=== PATIENT | male | born 1985 | race Caucasian/White ===

== ENCOUNTER 2021-08-05 06:18 | Inpatient (IN) ==
--- NOTE | 2021-08-05 06:34 | Emergency Department Note ---
Impression & Plan Suicidal behavior with attempted self-injury, Depression ED Provider Note NAME: EVIE CORREIA AGE: 36 SEX: M : 1985 ARRIVES VIA: Walk-In INFORMANT: Patient, ED PROVIDER(S): Rashaad Henry MD Chief Complaint: Overdose, strangulation intent HPI: Patient presents after trying to take medication for pain as well as for sleepiness and attempt to strangle himself. The patient states that he took 8 or 9 Aleve as well as a blister pack of 25 mg Benadryl around 1:30 AM. The patient states that after that time the patient had tried to cut off circulation to his head by placing a towel and then a belter with a towel. The patient also did state that he had some superficial scratches to the bilateral upper extremities. Patient states that he felt a little loopy after he had taken the Benadryl but feels normal now. Patient does have a history of passive suicidal thinking but denies any prior attempts. The patient denies any access to guns or weapons. Patient states that this all began as an issue with money problems and thought that he was going to run out of money over the wintertime and that his lease was up and that killing himself with all these problems. Patient denies any HI or AVH. Patient states his sleep and appetite been okay. Patient does not take any current medications and denies alcohol tobacco or drug use. Patient denies any headache neck pain numbness tingling or focal weakness. ROS: See HPI for pertinent positives and negatives. A total of 10 systems were reviewed and otherwise negative. Past medical history: See below Surgical history: See below Social history: See below Physical Exam: GENERAL: NAD, wearing glasses, wearing a mask, non-toxic. EYE EXAM: Normal conjunctiva. PERRL, no anisocoria and EOM's grossly intact w/o pain. OROPHARYNX: Moist mucus membranes. Grossly normal dentition. NECK: Supple, no nuchal rigidity, no adenopathy, non-tender. No signs of meningismus. FROM of the neck with good chin to chest and neck extension. No stridor. Superficial scratches to the left neck but no obvious ecchymosis or hematoma. LUNGS: Clear to auscultation. Normal chest wall mechanics. HEART: NSR, no MRG. ABDOMEN: Abdomen soft, non-tender, normo-active bowel sounds, no masses, no rebound or guarding. BACK: No CVA TTP. SKIN: No rashes and no bruising. UPPER EXTREMITIES: Upper extremities are grossly normal. LOWER EXTREMITIES: Grossly normal, no edema. NEURO EXAM: A&O x3, cranial nerves II-XII grossly intact, normal speech, moves all 4 extremities on command w/o issue. No sensory deficits. Psych: Positive SI, negative HI or AVH Differential diagnoses: Mood disorder, infection, hypoglycemia, electrolyte abnormalities, cardiac sources, intracerebral event, toxicologic, trauma, neurologic, as well as other pathologies. Course: Patient was seen and evaluated the bedside. Full history physical exam was performed. EKG interpreted by me Normal sinus rhythm, rate of 100, normal intervals, normal axis. MDM: Patient was seen due to concern for overdose. Blood work is obtained along with an EKG. The patient has surpassed his observation. As the patient took these medications around 6 hours ago. Patient is awake alert and following commands. Patient is not stuporous. Screening EKG and tox labs were also ordered. Patient does not have any evidence of obvious Andre criteria requiring CT angio of the neck. Patient is a nonfocal neurologic exam. Patient was he medically cleared seen and evaluated by the rn field case manager. The p atient was subsequently admitted to the psychiatric service. Psychiatry did ask for blood pressure medications and patient was given a one-time dose of clonidine. Past Med/Surg History Medical History (Updated 08/05/21 @ 13:26 by Rashaad Henry MD) No pertinent past medical history Surgical History (Updated 08/05/21 @ 07:08 by Rashaad Henry MD) No pertinent past surgical history Social History (Updated 08/05/21 @ 07:09 by Rashaad Henry MD) Smoking Status: Never smoker Hx Alcohol Use: No Hx Substance Use: No Preferred Language: Yakut Communication Ability: Effective Lather Apprentice Required: No Beliefs That Will Affect Care: None Feels Safe at Home: Yes Assistive Devices: Glasses Allergies Allergies Allergy/AdvReac Type Severity Reaction Status Date / Time No Known Allergies Allergy Unverified 08/05/21 08:47 Home Meds Home Medications Medication Instructions Recorded Confirmed No Known Home Medications 08/05/21 08/05/21 Results & Data (ED) Vital Signs Vital Signs - 24 hr 08/05/21 06:23 08/05/21 08:48 08/05/21 09:37 Temperature 37.2 C Temperature Source Oral Pulse Rate 122 H Pulse Rate [Right Finger] 106 H 106 H Respiratory Rate 18 22 20 Respiratory Effort / Characteristics Non-Labored Spontaneous Non-Labored Spontaneous Respiratory Depth Normal Normal Respiratory Pattern Regular Regular Blood Pressure 181/117 H Blood Pressure [Right Arm] 150/117 H 136/98 Blood Pressure Mean 138 Blood Pressure Mean [Right Arm] 128 110 Pulse Oximetry 99 98 100 Oxygen Delivery Method Room Air Room Air Room Air Sepsis Recent Fever Within 48 Hours No Sepsis New/Unexplained Change in Mental Status No Sepsis Action Taken by Nursing No Action Required 08/05/21 10:34 Temperature Temperature Source Pulse Rate 101 H Pulse Rate [Right Finger] Respiratory Rate 20 Respiratory Effort / Characteristics Respiratory Depth Respiratory Pattern Blood Pressure 138/96 Blood Pressure [Right Arm] Blood Pressure Mean Blood Pressure Mean [Right Arm] Pulse Oximetry 99 Oxygen Delivery Method Room Air Sepsis Recent Fever Within 48 Hours Sepsis New/Unexplained Change in Mental Status Sepsis Action Taken by Half-Way Medications Current Medication List: was personally reviewed by me Laboratory Data Attestation: I reviewed the patient's lab results. Result diagrams: 08/05/21 06:37 08/05/21 06:37 Lab Results 08/05/21 08/05/21 08/05/21 Range/Units 06:37 06:37 06:37 WBC 5.47 (4.8-10.8) K/uL RBC 4.97 (4.7-6.1) M/uL Hgb 13.8 L (14.0-18.0) g/dL Hct 40.1 L (42-52) % MCV 80.7 (80-100) fL MCH 27.8 (25-34) pg MCHC 34.4 (32-36) g/dL RDW Std Deviation 38.6 (36.4-46.3) fL RDW Coeff of Nany 13.2 (11.5-14.5) % Plt Count 256 (130-400) K/uL MPV 9.9 (7.4-10.4) fL Immature Gran % (Auto) 0.2 % Neut % (Auto) 60.2 % Lymph % (Auto) 32.5 % Kimble % (Auto) 6.0 % Eos % (Auto) 0.9 % Baso % (Auto) 0.2 % Neut # (Auto) 3.29 (1.4-6.5) K/uL Lymph # (Auto) 1.78 (1.2-3.4) K/uL Kimble # (Auto) 0.33 (0.11-0.59) K/uL Eos # (Auto) 0.05 (0-0.5) K/uL Baso # (Auto) 0.01 (0-0.2) K/uL Immature Gran # (Auto) 0.01 (0.00-0.02) K/uL Sodium 134 L (136-145) mmol/L Potassium 3.6 (3.5-5.1) mmol/L Chloride 100 (98-107) mmol/L Carbon Dioxide 25 (21-32) mmol/L Anion Gap 9 (3-11) BUN 12 (6-23) mg/dl Creatinine 0.76 (0.6-1.4) mg/dl Est Cr Clr Drug Dosing 227.5 ml/min Est GFR ( Amer) 135.1 ml/min Est GFR (Non-Af Amer) 116.6 ml/min BUN/Creatinine Ratio 15.8 (10-20) Glucose 226 H (70-99(Fasting)) mg/dl Calcium 9.4 (8.5-10.1) mg/dl Total Bilirubin 0.7 (0.2-1.0) mg/dl AST 24 (13-39) U/L ALT 30 (7-52) U/L Alkaline Phosphatase 50 (34-104) U/L Total Protein 6.8 (6.0-8.3) gm/dl Albumin 4.3 (3.4-5.0) gm/dl Globulin 2.5 (2.5-4.0) gm/dl Albumin/Globulin Ratio 1.7 (0.9-2) TSH 2.429 (0.300-4.500) uIu/ml Urine Color Urine Appearance (Clear) Urine pH (4.5-7.5) Ur Specific [place] (1.000-1.030) Urine Protein (Negative) Urine Glucose (UA) (Negative) Urine Ketones (Negative) Urine Blood (Negative) Urine Nitrite (Negative) Urine Bilirubin (Negative) Urine Urobilinogen (Negative) Ur Leukocyte Esterase (Negative) Salicylates (3.0-30) mg/dl Urine Opiates Screen (Neg) Ur Methadone, Qual (Neg) Acetaminophen (10-30) ug/ml Urine Barbiturates (Neg) Ur Phencyclidine (PCP) (Neg) U Amphetamin/Meth Scrn (Neg) MDMA (Ecstasy) Screen (Neg) U Benzodiazepines Scrn (Neg) Ur Cocaine Metabolite (Neg) U Marijuana (THC) Screen (Neg) Ethyl Alcohol mg/dL (<10.0) mg/dl SARS-CoV-2, RNA, NAAT (NEGATIVE) 08/05/21 08/05/21 08/05/21 Range/Units 06:37 06:37 06:37 WBC (4.8-10.8) K/uL RBC (4.7-6.1) M/uL Hgb (14.0-18.0) g/dL Hct (42-52) % MCV (80-100) fL MCH (25-34) pg MCHC (32-36) g/dL RDW Std Deviation (36.4-46.3) fL RDW Coeff of Nany (11.5-14.5) % Plt Count (130-400) K/uL MPV (7.4-10.4) fL Immature Gran % (Auto) % Neut % (Auto) % Lymph % (Auto) % Kimble % (Auto) % Eos % (Auto) % Baso % (Auto) % Neut # (Auto) (1.4-6.5) K/uL Lymph # (Auto) (1.2-3.4) K/uL [place] # (Auto) (0.11-0.59) K/uL Eos # (Auto) (0-0.5) K/uL Baso # (Auto) (0-0.2) K/uL Immature Gran # (Auto) (0.00-0.02) K/uL Sodium (136-145) mmol/L Potassium (3.5-5.1) mmol/L Chloride (98-107) mmol/L Carbon Dioxide (21-32) mmol/L Anion Gap (3-11) BUN (6-23) mg/dl Creatinine (0.6-1.4) mg/dl Est Cr Clr Drug Dosing ml/min Est GFR ( Amer) ml/min Est GFR (Non-Af Amer) ml/min BUN/Creatinine Ratio (10-20) Glucose (70-99(Fasting)) mg/dl Calcium (8.5-10.1) mg/dl Total Bilirubin (0.2-1.0) mg/dl AST (13-39) U/L ALT (7-52) U/L Alkaline Phosphatase (34-104) U/L Total Protein (6.0-8.3) gm/dl Albumin (3.4-5.0) gm/dl Globulin (2.5-4.0) gm/dl Albumin/Globulin Ratio (0.9-2) TSH (0.300-4.500) uIu/ml Urine Color Urine Appearance (Clear) Urine pH (4.5-7.5) Ur Specific [place] (1.000-1.030) Urine Protein (Negative) Urine Glucose (UA) (Negative) Urine Ketones (Negative) Urine Blood (Negative) Urine Nitrite (Negative) Urine Bilirubin (Negative) Urine Urobilinogen (Negative) Ur Leukocyte Esterase (Negative) Salicylates < 3.0 L (3.0-30) mg/dl Urine Opiates Screen (Neg) Ur Methadone, Qual (Neg) Acetaminophen < 3 L (10-30) ug/ml Urine Barbiturates (Neg) Ur Phencyclidine (PCP) (Neg) U Amphetamin/Meth Scrn (Neg) MDMA (Ecstasy) Screen (Neg) U Benzodiazepines Scrn (Neg) Ur Cocaine Metabolite (Neg) U Marijuana (THC) Screen (Neg) Ethyl Alcohol mg/dL < 10.0 (<10.0) mg/dl SARS-CoV-2, RNA, NAAT NEGATIVE (NEGATIVE) 08/05/21 08/05/21 Range/Units 07:30 07:30 WBC (4.8-10.8) K/uL RBC (4.7-6.1) M/uL Hgb (14.0-18.0) g/dL Hct (42-52) % MCV (80-100) fL MCH (25-34) pg MCHC (32-36) g/dL RDW Std Deviation (36.4-46.3) fL RDW Coeff of Nany (11.5-14.5) % Plt Count (130-400) K/uL MPV (7.4-10.4) fL Immature Gran % (Auto) % Neut % (Auto) % Lymph % (Auto) % Kimble % (Auto) % Eos % (Auto) % Baso % (Auto) % Neut # (Auto) (1.4-6.5) K/uL Lymph # (Auto) (1.2-3.4) K/uL [place] # (Auto) (0.11-0.59) K/uL Eos # (Auto) (0-0.5) K/uL Baso # (Auto) (0-0.2) K/uL Immature Gran # (Auto) (0.00-0.02) K/uL Sodium (136-145) mmol/L Potassium (3.5-5.1) mmol/L Chloride (98-107) mmol/L Carbon Dioxide (21-32) mmol/L Anion Gap (3-11) BUN (6-23) mg/dl Creatinine (0.6-1.4) mg/dl Est Cr Clr Drug Dosing ml/min Est GFR ( Amer) ml/min Est GFR (Non-Af Amer) ml/min BUN/Creatinine Ratio (10-20) Glucose (70-99(Fasting)) mg/dl Calcium (8.5-10.1) mg/dl Total Bilirubin (0.2-1.0) mg/dl AST (13-39) U/L ALT (7-52) U/L Alkaline Phosphatase (34-104) U/L Total Protein (6.0-8.3) gm/dl Albumin (3.4-5.0) gm/dl Globulin (2.5-4.0) gm/dl Albumin/Globulin Ratio (0.9-2) TSH (0.300-4.500) uIu/ml Urine Color Yellow Urine Appearance Clear (Clear) Urine pH 6.0 (4.5-7.5) Ur Specific [place] 1.003 (1.000-1.030) Urine Protein Negative (Negative) Urine Glucose (UA) Negative (Negative) Urine Ketones Negative (Negative) Urine Blood Negative (Negative) Urine Nitrite Negative (Negative) Urine Bilirubin Negative (Negative) Urine Urobilinogen Negative (Negative) Ur Leukocyte Esterase Negative (Negative) Salicylates (3.0-30) mg/dl Urine Opiates Screen Neg (Neg) Ur Methadone, Qual Neg (Neg) Acetaminophen (10-30) ug/ml Urine Barbiturates Neg (Neg) Ur Phencyclidine (PCP) Neg (Neg) U Amphetamin/Meth Scrn Neg (Neg) MDMA (Ecstasy) Screen Neg (Neg) U Benzodiazepines Scrn Neg (Neg) Ur Cocaine Metabolite Neg (Neg) U Marijuana (THC) Screen Neg (Neg) Ethyl Alcohol mg/dL (<10.0) mg/dl SARS-CoV-2, RNA, NAAT (NEGATIVE) Administered Medications Discontinued Medications Clonidine HCl (Clonidine Hcl 0.1 Mg Tab) 0.1 mg PO NOW ONE Stop: 08/05/21 08:52 Last Admin: 08/05/21 08:56 Dose: 0.1 mg Documented by: [id number] Discharge Plan Visit Data Chief Complaint: Mental Health Evaluation Stated Complaint: MENTAL HEALTH EVALUATION ED Provider: Rashaad Henry Discharge Problem: Suicidal behavior with attempted self-injury, Depression Patient Disposition: Admitted As Inpatient Discharge Instructions Interventions: ED Discharge Assessment Last Done: 08/05/21 10:34
[2021-08-05 06:51] LABS: Basophils # (auto) 0.01 K/uL (0-0.2); Basophils % (auto) 0.2 %; Eosinophils # (auto) 0.05 K/uL (0-0.5); Eosinophils % (auto) 0.9 %; Hematocrit (blood only) 40.1 % (42-52); Hemoglobin 13.8 g/dL (14.0-18.0); Immature Granulocytes # (auto) 0.01 K/uL (0.00-0.02); Immature Granulocytes % (auto) 0.2 %; Lymphocytes # (auto) 1.78 K/uL (1.2-3.4); Lymphocytes % (auto) 32.5 %; Mean Corpuscular Hemoglobin 27.8 pg (25-34); Mean Corpuscular Hgb Conc 34.4 g/dL (32-36); Mean Corpuscular Volume 80.7 fL (80-100); Mean Platelet Volume 9.9 fL (7.4-10.4); Monocytes # (auto) 0.33 K/uL (0.11-0.59); Neutrophils # (auto) 3.29 K/uL (1.4-6.5); Neutrophils % (auto) 60.2 %; Platelet Count 256 K/uL (130-400); RDW Coefficient of Variation 13.2 % (11.5-14.5); RDW Standard Deviation 38.6 fL (36.4-46.3); Red Blood Count 4.97 M/uL (4.7-6.1); White Blood Count 5.47 K/uL (4.8-10.8)
[2021-08-05 07:11] LABS: Acetaminophen < 3 ug/ml (10-30); Salicylate < 3.0 mg/dl (3.0-30)
[2021-08-05 07:12] LABS: Albumin Globulin Ratio 1.7 (0.9-2); Albumin Level 4.3 gm/dl (3.4-5.0); BUN Creatinine Ratio 15.8 (10-20); Bilirubin,Total 0.7 mg/dl (0.2-1.0); Calcium 9.4 mg/dl (8.5-10.1); Creatinine Clr Calc Pharmacy 227.5 ml/min; Est GFR (African American) 135.1 ml/min; Est GFR (Non-African American) 116.6 ml/min; Globulin 2.5 gm/dl (2.5-4.0); Potassium 3.6 mmol/L (3.5-5.1); Total Protein 6.8 gm/dl (6.0-8.3)
[2021-08-05 07:42] LABS: Appearance Urine Clear (Clear); Bilirubin Urine Negative (Negative); Blood Urine Negative (Negative); Color Urine Yellow; Glucose Urine UA Negative (Negative); Ketones Urine Negative (Negative); Leukocyte Esterase Urine Negative (Negative); Nitrite Urine Negative (Negative); Protein Urine Negative (Negative); Specific Gravity Urine 1.003 (1.000-1.030); Urobilinogen Urine Negative (Negative)
[2021-08-05 08:12] LABS: Amphetamines+Metham, Urine Neg (Neg); Barbiturates, Urine Neg (Neg); Benzodiazepine, Urine Neg (Neg); Cocaine, Urine Neg (Neg); MDMA (Ecstacy), Urine Neg (Neg); Methadone, Urine Neg (Neg); Opiate, Urine Neg (Neg); Phencyclidine, Urine Neg (Neg)
[2021-08-05] MEDS ORDERED: cloNIDine HCL 0.1 MG TAB PO ONE (08:51)
[2021-08-05] MEDS ORDERED: ACETAMINOPHEN 325 MG TAB PO PRN (13:30)
[2021-08-05] MEDS ORDERED: SODIUM CHLORIDE 0.65% NA SOLN 45 ML (OCEAN) PRN (13:30)
[2021-08-05] MEDS ORDERED: MAGNESIUM HYDROXIDE SUSP 30 ML UDC PO PRN (13:30)
[2021-08-05] MEDS ORDERED: hydrOXYzine HCl 25 MG TAB PO PRN ×2 (13:30)
[2021-08-05] MEDS ORDERED: ALUMINUM/MAGNESIUM SUSP 30 ML UDC PO PRN (13:30)
[2021-08-05] MEDS ORDERED: BISMUTH SUBSALICYLATE LIQD 236 ML PO PRN (13:30)
[2021-08-05] MEDS ORDERED: PROPRANOLOL HCL 10 MG TAB PO PRN (13:37)
--- NOTE | 2021-08-06 07:57 | Electrocardiogram Report ---
Test Reason : Blood Pressure : / mmHG Vent. Rate : 100 BPM Atrial Rate : 100 BPM P-R Int : 170 ms QRS Dur : 098 ms QT Int : 360 ms P-R-T Axes : 055 015 042 degrees QTc Int : 464 ms Poor data quality, interpretation may be adversely affected Normal sinus rhythm Normal ECG No previous ECGs available Confirmed by Wiley Gonzalez ([id number]) on 08/06/2021 7:57:44 AM Referred By: REFERRED SELF Confirmed By:Wiley Gonzalez
--- NOTE | 2021-08-06 09:02 | History & Physical ---
Date of Service August 06, 2021 Impression / Recommendations Impression The patient is a 36 year old with a history of depression who was admitted for suicide attempt. Diagnostically consistent with MDD, severe vs persistent depressive disorder, OMAR and social anxiety. The patient is deemed unstable and requires psychiatric hospitalization for diagnostic clarification, safety and stabilization, medication management and development of further coping skills. He is going to talk with his parents about which medications they use for depression, we also discussed possibility of WEllbutrin. Has not seen a PCP in many years and seems to have HTN. Started lisinopril which he agrees with. Will check fasting lipid panel and glucose given diabetes runs in his family. (1) MDD (major depressive disorder), recurrent episode, severe: (2) Suicide attempt: (3) OMAR (generalized anxiety disorder): (4) Social anxiety disorder: (5) HTN (hypertension): 08/06/21: The patient was admitted to the [facility] ([facility] mental [facility] unit) on q15 min checks (behavioral with suicide precautions) for safety. The patient will participate in group, recreational, and milieu therapies and will be offered additional individual and family sessions as clinically appropriate. -Lisinopril 5 mg qd -propranolol 10mg BID for anxiety and tachycardia/HTN -trazodone 50mg hs prn for insomnia Inventory Assets Strengths: supportive family, intelligent, kind Needs: stability, medication management, additional coping skills, outpt services Suicide Risk Level Suicide Risk Level: High (q15 min suicide checks) (High-Moderate) Suicide Risk Level Comments: Passive SI and feels safe on unit but with ongoing depression and planned suicide attempt prior to admission. He is able to safety contract and will alert nursing if SI intensifies or if he feels unable to stay safe. Risk Factors Assessment Male: Yes : Yes Do You Have Access To A Gun?: No Health Problems: Yes Mental Health Diagnoses: Yes Substance Use Disorders: No Previous Attempt: No Family History of Suicide: No Previous Psychiatric Hospitalization: No Hopelessness: Yes Protective Factors Assessment Employed: No Stable Relationships: Yes Supportive Family: Yes Psychiatric History Identifying Data SUKUMAR CORREIA is a 36-year-old M who currently lives in [place] alone, has a history of depression, and was admitted on 08/05/21 10:41 on a 201 voluntary commitment for suicide attempt. Chief Complaint "I didn't see a future for myself". History of Present Illness Sukumar presents for worsening depression and suicide attempt in the context of multiple psychosocial stressors including financial strain (going through his savings) and his lease expiring and social isolation. States he didn't see a future for himself and had been thinking about suicide for many years but it intensified in winter and he started to think about what he'd need to do before dying and started to think about when to . He didn't want his family to have to do the cleanup after he so he tried to get rid of as much of his stuff as possible. He had also accumulated items from various hobbies so he got rid of these as well as his kitchen tools and furniture. Before attempting suicide he only had the appliances left and a few bathroom toiletries and a few plates and only a few sets of clothes because he had counted down how many days he planned to live. He had gotten rid of his mattress, trash and had a computer desk left and it took a few days to dismantle it and get rid of it. He packed up his electronics and had them available to be donated in his car. After getting rid of everything he realized that he could act on the suicidal thoughts and then he wrote and printed letters- he left his parents letters on the counter with keys and financial information and some he sent in the mail to the [place], fire department and the police to let them know to do a welfare check and how to get into the apartment. He attempted suicide by overdosing on ibuprofen, attempted to hang himself and tried to cut himself. After attempting suicide and it was unsuccessful he called a crisis line he found online. Then the police arrived for a welfare check and then he was brought to the ED. No active SI but general future anxiety makes him worse about the moment and leads to passive SI. He has been experiencing depression chronically since about high school with lots of anxiety and he feels he coped with anxious worries by thinking "it's ok I'm going to anyway". This thought of the eventuality of dying by suicide allowed him to rationale not progressing in college classes, not trying to find new work, depleting his long-term and savings, not going to the dentist, not going to the doctor and not paying for car registration. He notes that the symptoms have been there "for awhile" and saw little point in a future. He identifies depression symptoms including worthlessness, being a buden, having no purpose, hopeless, lack of motivation, low energy, decreased concentration, apathy, increased appetite, decreased sleep with nighttime awakenings and chronic SI. Endorses symptoms of anxiety including generalized worries, worst case scenario thinking, and social anxiety. He also endorses memory issues. Psychiatric ROS notable for no history of emmy, no hx psychosis, no hx OCD. Past Psychiatric History Current Psychiatric Diagnosis: Depression Outpatient Services: none, saw psychiatrist in his 20s for about three sessions Previous Psych Admissions: n/a Do You Have Access To A Gun?: No History of Previous Suicide Attempt: No Past Medication Trials: in college was on fluoxetine for <1 month, escitalopram (didn't help, <3 months), Effexor (didn't help, <3 months) Past Head Trauma/Neuro History History of Concussion/Seizure: No Allergies Allergy/AdvReac Type Severity Reaction Status Date / Time No Known Allergies Allergy Verified 08/06/21 09:40 Home Medications Medication Instructions Recorded Confirmed Type No Known Home Medications 08/05/21 08/05/21 History Family History Family History of: Depression (father and mother ) Alcohol History Hx of Alcohol Use Over the Past 12 Months: No AUDIT Total Score: 1 1-2 beers per month Smoking Use Have You Smoked or Used Tobacco Products in the Last 30 Days: No Smoking Status: Never smoker Substance History Hx of Prescription Med Misuse Over the Past 12 Months: No Hx of Over the Counter Med Misuse Over the Past 12 Months: No Hx of Inhalent Misuse Over the Past 12 Months: No Hx of Organic Substance Use Over the Past 12 Months: No Hx of Illegal Substances/Street Drug Use Over Past 12 Months: No Problems as a Result of Past Substance Use: None Identified Personal History Living Arrangements: Apartment (lease ends in September, parents working to see if this can be renewed ) Childhood: Grew up in [place], parents are good supports. Has a younger brother. Highest Grade Completed: Some College ([employer] ) Employment Status: Unemployed (Used to work at [employer], unemployed since summer 2019) Marital Status: Single Number Of Children: n/a Beliefs That Will Affect Care: None Current Legal Problems: No Hx Legal Problems: No Hx Traumatic Life Events: No Patient History Medical History No pertinent past medical history Surgical History No pertinent past surgical history Social History Smoking Status: Never smoker Hx Alcohol Use: No Hx Substance Use: No Preferred Language: Arabic Communication Ability: Effective Loom Blower Required: No Beliefs That Will Affect Care: None Feels Safe at Home: Yes Assistive Devices: Glasses Review of Systems Review of Systems: All systems reviewed & are unremarkable except as noted in HPI & below (dry mouth and skin) Physical Exam Psychiatric: Orientation: alert and oriented x 3 Apperance: appropriately dressed and appropriately groomed Eye Contact: good eye contact Motor Behavior: no abnormal motor movements Speech: normal rate/rhythm/volume of speech Affect: + depressed affect and + blunted affect Mood: + depressed mood and + anxious mood Thought Process: goal directed thought process Thought Content: reality based without delusions, + hopelessness and + worthlessness Suicidal Thoughts: denies suicidal plan and denies suicidal intent; + reports suicidal thoughts (intermittent passive thoughts, had attempt prior to admission) Homicidal Thoughts: denies homicidal thoughts Hallucinations: no auditory hallucinations and no visual hallucinations Cognition: recent memory grossly intact, remote memory grossly intact, attention grossly intact and language grossly intact Estimated Intelligence: consistent with education level Insight: + fair insight Judgement: + fair judgement Vital Signs (Past 24 Hours): Last Vital Signs Temp 36.9 C 08/06/21 06:46 Pulse 91 H 08/06/21 06:47 Resp 18 08/06/21 06:46 BP 146/105 H 08/06/21 06:47 Pulse Ox 99 08/05/21 10:34 Exam Statement: A physical exam was performed in the ED by Dr. Henry for the purposes of medical clearance. I accept that physical as correct and adequate for the purposes of the inpatient physical exam. Results & Data ([facility]) Current Inpatient Medications Current Inpatient Medications: Current Inpatient Medications Acetaminophen (Acetaminophen 325 Mg Tab) 650 mg PO Q4H PRN PRN Reason: Headache or Minor Fever Stop: 09/04/21 13:29 Al Hydrox/Mg Hydrox/Simethicone (Aluminum/Magnesium Susp 30 Ml Udc) 30 ml PO Q4H PRN PRN Reason: GI Upset Stop: 09/04/21 13:29 Bismuth Subsalicylate (Bismuth Subsalicylate Liqd 236 Ml) 15 ml PO PRN PRN PRN Reason: Loose Stool Stop: 09/04/21 13:29 Hydroxyzine HCl (Hydroxyzine Hcl 25 Mg Tab) 50 mg PO HSZ PRN PRN Reason: Insomnia Stop: 09/04/21 13:29 Hydroxyzine HCl (Hydroxyzine Hcl 25 Mg Tab) 25 mg PO Q4H PRN PRN Reason: Anxiety Stop: 09/04/21 13:29 Lisinopril (Lisinopril 5 Mg Tab) 5 mg PO QAM AUTUMN Stop: 09/05/21 08:59 Magnesium Hydroxide (Magnesium Hydroxide Susp 30 Ml Udc) 30 ml PO DAILY PRN PRN Reason: Constipation Stop: 09/04/21 13:29 Propranolol HCl (Propranolol Hcl 10 Mg Tab) 10 mg PO BID PRN PRN Reason: Anxiety Stop: 09/04/21 20:59 Last Admin: 08/05/21 16:02 Dose: 10 mg Documented by: Sodium Chloride (Sodium Chloride 0.65% Na Soln 45 Ml ([place])) 1 - 2 sprays NA PRN PRN PRN Reason: Nasal Dryness/Congestion Stop: 09/04/21 13:29 Trazodone HCl (Trazodone Hcl 50 Mg Tab) 50 mg PO HS PRN PRN Reason: insomnia Stop: 09/04/21 21:59
[2021-08-06] MEDS: lisinopril 5 MG TAB PO SCH (09:07)
[2021-08-06] MEDS: traZODone HCL 50 MG TAB PO PRN (21:34)
--- NOTE | 2021-08-07 08:50 | Psychiatric Progress Note ---
Date of Service August 07, 2021 Impression / Recommendations Impression The patient is a 36 year old with a history of depression who was admitted for suicide attempt. Diagnostically consistent with MDD, severe vs persistent depressive disorder, OMAR and social anxiety. The patient is deemed unstable and requires psychiatric hospitalization for diagnostic clarification, safety and stabilization, medication management and development of further coping skills. 08/07/21: Continues to present with severe depression. Discussed medication treatment options in detail. Discussed risks, benefits and alternatives including Wellbutrin and SSRIs. Patient would like to start and consented to fl uoxetine for MDD as well as having trazodone at bedtime as needed.Reviewed side effects including but not limited to: GI, WILSON, sexual side effects, and counseled on black box warning of potential for emergence of or increased SI and need to let staff know should this occur or should they feel unsafe. Also discussed importance of seeking emergency care following discharge if this side effect occurs in the future. Reviewed risk of priapism. Reviewed labwork including normal cholesterol and LDL, low HDL, elevated triglycerides and HbA1c consistent with T2DM. BP normal this morning after starting lisinopril yesterday, unclear if throat tickle may be side effect, will continue to monitor. Consider starting metformin vs dietary changes/business applications analyst involvement. Reviewed suicide letter he left for family which was consistent with symptoms he described during admission interview and with prominent themes of worthless, hopelessness and low self-esteem. Also wonder about potential JOSE G contributing to low motivation, energy and sleep issues. (1) MDD (major depressive disorder), recurrent episode, severe: (2) Suicide attempt: (3) OMAR (generalized anxiety disorder): (4) Social anxiety disorder: (5) HTN (hypertension): (6) Type II diabetes mellitus: 08/07/21: Continue current medications and tx plan. 08/06/21: The patient was admitted to the [facility] ([facility] inpatient mental health unit) on q15 min checks (behavioral with suicide precautions) for safety. The patient will participate in group, recreational, and milieu therapies and will be offered additional individual and family sessions as clinically appropriate. -Lisinopril 5 mg qd -propranolol 10mg BID for anxiety and tachycardia/HTN -trazodone 50mg hs prn for insomnia Inventory Assets Strengths: supportive family, intelligent, kind Needs: stability, medication management, additional coping skills, outpt services Suicide Risk Level Suicide Risk Level: High (q15 min suicide checks) (High-Moderate) Suicide Risk Level Comments: Intermittent active SI and attempt prior to admission with severe depression but he denies any plan nor intent, feels well supported by staff, feels safe on the unit, actively engaged and participating and forthcoming with good insight, agrees to alert nursing if SI changes, intensifies or if he has thoughts of plan or intent or if he feels unable to stay safe. Risk Factors Assessment Male: Yes : Yes Do You Have Access To A Gun?: No Health Problems: Yes Mental Health Diagnoses: Yes Substance Use Disorders: No Previous Attempt: No Family History of Suicide: No Previous Psychiatric Hospitalization: No Hopelessness: Yes Protective Factors Assessment Employed: No Stable Relationships: Yes Supportive Family: Yes Interval History Identifying Information EVIE CORREIA is a 36-year-old M who currently lives in [place] alone, has a history of depression, and was admitted on 08/05/21 10:41 on a 201 voluntary commitment for suicide attempt. Chief Complaint "When I'm distracted the thoughts aren't there but they are always in the background". Review of Systems Sleep Information Total Hours of Sleep: 7.25 Sleep Comments: pt on q-15 minute checks Meal Information Percent Meal Consumed - Breakfast: 100 Percent Meal Consumed - Lunch: 100 Percent Meal Consumed - Dinner: 100 Subjective Subjective Patient was seen & assessed and interval progress reviewed with treatment team nursing and social work. Took trazodone prn last night. Fasting labs this morning. Working on medical assistance application. Slept better with trazodone. He doesn't think he snores but tends to not have restful sleep. No side effects from first dose of fluoxetine. Continues to have active SI but no plan or intent and feels safe on the unit and that he could let staff know if his thoughts intensified. He feels being here is helpful because he's doing productive things like attending groups and working on his workup and when he's distracted the SI thoughts don't bother him but when he's not as engaged the thoughts are in the background. Discussed what it's like before falling asleep or other times when he is alone in his room and he feels he is safe and doesn't need more support because he's falling asleep quickly and knows the nurses are right nearby if he needs to talk. Reviewed his labwork. He denies any medication side effects except a "tickle in his throat". Physical Exam Psychiatric Orientation: alert and oriented x 3 Apperance: appropriately dressed and appropriately groomed Eye Contact: good eye contact Motor Behavior: no abnormal motor movements Speech: normal rate/rhythm/volume of speech Affect: + depressed affect Mood: + depressed mood and + anxious mood Thought Process: goal directed thought process Thought Content: reality based without delusions, + hopelessness and + worthlessness Suicidal Thoughts: denies suicidal plan and denies suicidal intent; + reports suicidal thoughts (intermittent thoughts, had attempt prior to admission) Homicidal Thoughts: denies homicidal thoughts Hallucinations: no auditory hallucinations and no visual hallucinations Cognition: recent memory grossly intact, remote memory grossly intact, attention grossly intact and language grossly intact Estimated Intelligence: consistent with education level Insight: good insight Judgement: + fair judgement Vital Signs (Past 24 Hours) Last Vital Signs Temp 36.6 C 08/07/21 06:00 Pulse 99 H 08/07/21 06:23 Resp 16 08/07/21 06:00 BP 133/94 08/07/21 06:23 Pulse Ox 99 08/05/21 10:34 Results & Data ([facility]) Laboratory Results Laboratory Results - last 24 hr 08/07/21 08/07/21 08:23 08:23 Fasting Glucose Pending Estimat Average Glucose Pending Hemoglobin A1c Pending Triglycerides Pending Cholesterol Pending LDL Cholesterol, Calc Pending VLDL Cholesterol, Calc Pending HDL Cholesterol Pending Cholesterol/HDL Ratio Pending Current Inpatient Medications Current Inpatient Medications: Current Inpatient Medications Acetaminophen (Acetaminophen 325 Mg Tab) 650 mg PO Q4H PRN PRN Reason: Headache or Minor Fever Stop: 09/04/21 13:29 Al Hydrox/Mg Hydrox/Simethicone (Aluminum/Magnesium Susp 30 Ml Udc) 30 ml PO Q4H PRN PRN Reason: GI Upset Stop: 09/04/21 13:29 Bismuth Subsalicylate (Bismuth Subsalicylate Liqd 236 Ml) 15 ml PO PRN PRN PRN Reason: Loose Stool Stop: 09/04/21 13:29 Fluoxetine HCl (Fluoxetine Hcl 20 Mg Cap) 20 mg PO QAM AUTUMN Stop: 09/06/21 08:59 Hydroxyzine HCl (Hydroxyzine Hcl 25 Mg Tab) 50 mg PO HSZ PRN PRN Reason: Insomnia Stop: 09/04/21 13:29 Hydroxyzine HCl (Hydroxyzine Hcl 25 Mg Tab) 25 mg PO Q4H PRN PRN Reason: Anxiety Stop: 09/04/21 13:29 Lisinopril (Lisinopril 5 Mg Tab) 5 mg PO QAM AUTUMN Stop: 09/05/21 08:59 Last Admin: 08/06/21 09:07 Dose: 5 mg Documented by: Magnesium Hydroxide (Magnesium Hydroxide Susp 30 Ml Udc) 30 ml PO DAILY PRN PRN Reason: Constipation Stop: 09/04/21 13:29 Propranolol HCl (Propranolol Hcl 10 Mg Tab) 10 mg PO BID PRN PRN Reason: Anxiety Stop: 09/04/21 20:59 Last Admin: 08/05/21 16:02 Dose: 10 mg Documented by: Sodium Chloride (Sodium Chloride 0.65% Na Soln 45 Ml ([place])) 1 - 2 sprays NA PRN PRN PRN Reason: Nasal Dryness/Congestion Stop: 09/04/21 13:29 Trazodone HCl (Trazodone Hcl 50 Mg Tab) 50 mg PO HS PRN PRN Reason: insomnia Stop: 09/04/21 21:59 Last Admin: 08/06/21 21:34 Dose: 50 mg Documented by:
[2021-08-07] MEDS: FLUoxetine HCL 20 MG CAP PO SCH (09:00)
[2021-08-07 09:09] LABS: Chol HDL Ratio 5.2 (0-5)
[2021-08-07] MEDS: lisinopril 5 MG TAB PO SCH (10:14)
[2021-08-07 10:43] LABS: Estimated Average Glucose 209 mg/dl; Hemoglobin A1C 8.9 % (4.5-5.6)
[2021-08-07] MEDS: traZODone HCL 50 MG TAB PO PRN (22:01)
[2021-08-08] MEDS: FLUoxetine HCL 20 MG CAP PO SCH (08:01)
[2021-08-08] MEDS: lisinopril 5 MG TAB PO SCH (08:01)
--- NOTE | 2021-08-08 09:12 | Psychiatric Progress Note ---
Date of Service August 08, 2021 Impression / Recommendations Impression The patient is a 36 year old with a history of depression who was admitted for suicide attempt. Diagnostically consistent with MDD, severe vs persistent depressive disorder, OMAR and social anxiety. The patient is deemed unstable and requires psychiatric hospitalization for diagnostic clarification, safety and stabilization, medication management and development of further coping skills. 08/08/21: Continues to present with severe depression and SI. Discussed HTN and new T2DM diagnosis with hospitalist provider who recommended switch to losartan and then if BP remains elevated can add amlodipine 2.5 mg qhs and recommends starting metformin ER. Pharmaceutical Process Engineer consult placed and they met with Sukumar to discuss nutritional changes to manage T2DM. Will likely recheck Na+ and electrolytes in a few days given ARB initiation and addition of SSRI. (1) MDD (major depressive disorder), recurrent episode, severe: (2) Suicide attempt: (3) OMAR (generalized anxiety disorder): (4) Social anxiety disorder: (5) HTN (hypertension): Switch from lisinopril to losartan If BP remains elevated add amlodipine 2.5 mg qhs (6) Type II diabetes mellitus: Will need PCP f/up Will need referral for endocrinology to learn to use glucometer/T2DM management 08/08/21: Stop lisinopril. Start losartan 25mg qd. Start metformin ER 500mg after breakfast. Start blood glucose checks before meals and at bedtime. Dietican consult. Continue with fluoxetine and trazodone. 08/07/21: Started fluoxetine 20mg qd. 08/06/21: The patient was admitted to the [facility] ([facility] unit) on q15 min checks (behavioral with suicide precautions) for safety. The patient will participate in group, recreational, and milieu therapies and will be offered additional individual and family sessions as clinically appropriate. -Lisinopril 5 mg qd -propranolol 10mg BID for anxiety and tachycardia/HTN -trazodone 50mg hs prn for insomnia Inventory Assets Strengths: supportive family, intelligent, kind Needs: stability, medication management, additional coping skills, outpt services Suicide Risk Level Suicide Risk Level: High (q15 min suicide checks) (High-Moderate) Suicide Risk Level Comments: Intermittent active SI and attempt prior to admission with severe depression but he denies any plan nor intent, feels well supported by staff, feels safe on the unit, actively engaged and participating and forthcoming with good insight, agrees to alert nursing if SI changes, intensifies or if he has thoughts of plan or intent or if he feels unable to stay safe. Risk Factors Assessment Male: Yes : Yes Do You Have Access To A Gun?: No Health Problems: Yes Mental Health Diagnoses: Yes Substance Use Disorders: No Previous Attempt: No Family History of Suicide: No Previous Psychiatric Hospitalization: No Hopelessness: Yes Protective Factors Assessment Employed: No Stable Relationships: Yes Supportive Family: Yes Interval History Identifying Information SUKUMAR CORREIA is a 36-year-old M who currently lives in [place] alone, has a hi story of depression, and was admitted on 08/05/21 10:41 on a 201 voluntary commitment for suicide attempt. Chief Complaint "I'm still depressed but I have less SI today". Review of Systems Sleep Information Total Hours of Sleep: 8 Sleep Comments: pt on q-15 minute checks Meal Information Percent Meal Consumed - Breakfast: 100 Percent Meal Consumed - Lunch: 100 Percent Meal Consumed - Dinner: 80 Subjective Subjective Patient was seen & assessed and interval progress reviewed with treatment team nursing and social work. Took prn trazodone last night and slept 8 hours. Some mild snoring observed by nursing. Today he reports ongoing depression but slight decrease in his SI. He is finding the groups helpful. Completed his MA application. Denies any side effects from the fluoxetine. Continues to have sensation of a tickle in his throat. Met with farm equipment mechanic. Physical Exam Psychiatric Orientation: alert and oriented x 3 Apperance: appropriately dressed and appropriately groomed Eye Contact: good eye contact Motor Behavior: no abnormal motor movements Speech: normal rate/rhythm/volume of speech Affect: + depressed affect and + blunted affect Mood: + depressed mood and + anxious mood Thought Process: goal directed thought process Thought Content: reality based without delusions, + hopelessness and + worthlessness Suicidal Thoughts: denies suicidal plan and denies suicidal intent; + reports suicidal thoughts (intermittent thoughts, had attempt prior to admission) Homicidal Thoughts: denies homicidal thoughts Hallucinations: no auditory hallucinations and no visual hallucinations Cognition: recent memory grossly intact, remote memory grossly intact, attention grossly intact and language grossly intact Estimated Intelligence: consistent with education level Insight: + fair insight Judgement: + fair judgement Vital Signs (Past 24 Hours) Last Vital Signs Temp 36.6 C 08/08/21 06:00 Pulse 93 H 08/08/21 06:27 Resp 16 08/08/21 06:00 BP 154/104 H 08/08/21 06:27 Pulse Ox 99 08/05/21 10:34 Results & Data ([facility]) Laboratory Results Laboratory Results - last 24 hr 08/07/21 08:23 Estimat Average Glucose 209 Hemoglobin A1c 8.9 H Current Inpatient Medications Current Inpatient Medications: Current Inpatient Medications Acetaminophen (Acetaminophen 325 Mg Tab) 650 mg PO Q4H PRN PRN Reason: Headache or Minor Fever Stop: 09/04/21 13:29 Al Hydrox/Mg Hydrox/Simethicone (Aluminum/Magnesium Susp 30 Ml Udc) 30 ml PO Q4H PRN PRN Reason: GI Upset Stop: 09/04/21 13:29 Bismuth Subsalicylate (Bismuth Subsalicylate Liqd 236 Ml) 15 ml PO PRN PRN PRN Reason: Loose Stool Stop: 09/04/21 13:29 Fluoxetine HCl (Fluoxetine Hcl 20 Mg Cap) 20 mg PO QAM AUTUMN Stop: 09/06/21 08:59 Last Admin: 08/08/21 08:01 Dose: 20 mg Documented by: Hydroxyzine HCl (Hydroxyzine Hcl 25 Mg Tab) 50 mg PO HSZ PRN PRN Reason: Insomnia Stop: 09/04/21 13:29 Hydroxyzine HCl (Hydroxyzine Hcl 25 Mg Tab) 25 mg PO Q4H PRN PRN Reason: Anxiety Stop: 09/04/21 13:29 Lisinopril (Lisinopril 5 Mg Tab) 5 mg PO QAM AUTUMN Stop: 09/05/21 08:59 Last Admin: 08/08/21 08:01 Dose: 5 mg Documented by: Magnesium Hydroxide (Magnesium Hydroxide Susp 30 Ml Udc) 30 ml PO DAILY PRN PRN Reason: Constipation Stop: 09/04/21 13:29 Propranolol HCl (Propranolol Hcl 10 Mg Tab) 10 mg PO BID PRN PRN Reason: Anxiety Stop: 09/04/21 20:59 Last Admin: 08/05/21 16:02 Dose: 10 mg Documented by: Sodium Chloride (Sodium Chloride 0.65% Na Soln 45 Ml ([place])) 1 - 2 sprays NA PRN PRN PRN Reason: Nasal Dryness/Congestion Stop: 09/04/21 13:29 Trazodone HCl (Trazodone Hcl 50 Mg Tab) 50 mg PO HS PRN PRN Reason: insomnia Stop: 09/04/21 21:59 Last Admin: 08/07/21 22:01 Dose: 50 mg Documented by: Post Discharge Appointments Contact Information Discharge Address: Parent's Address: [address] [place] [address], [address], [place] [address]
[2021-08-09] MEDS: FLUoxetine HCL 20 MG CAP PO SCH (08:55)
[2021-08-09] MEDS: metFORMIN HCL ER 500 MG TABCR PO SCH (08:55)
[2021-08-09] MEDS: LOSARTAN POTASSIUM 25 MG TAB PO SCH (08:56)
--- NOTE | 2021-08-09 17:19 | Psychiatric Progress Note ---
Date of Service August 09, 2021 Impression / Recommendations Impression The patient is a 36 year old with a history of depression who was admitted for suicide attempt. Diagnostically consistent with MDD, severe vs persistent depressive disorder, OMAR and social anxiety. The patient is deemed unstable and requires psychiatric hospitalization for diagnostic clarification, safety and stabilization, medication management and development of further coping skills. 08/09/21: Continues to present with severe depression and SI. Continues to have HTN, will add amlodipine tomorrow if persists. Re-check electrolytes in 2 days to ensure no worsening of hyponatremia. Tolerating fluoxetine well. (1) MDD (major depressive disorder), recurrent episode, severe: (2) Suicide attempt: (3) OMAR (generalized anxiety disorder): (4) Social anxiety disorder: (5) HTN (hypertension): Switch from lisinopril to losartan If BP remains elevated add amlodipine 2.5 mg qhs (6) Type II diabetes mellitus: Will need referral for endocrinology to learn to use glucometer/T2DM management If BG values remain > 120, will increase Metformin to 500mg x 2 AM on Thursday08/12/21 . PRESCRIPTIONS NEEDED AT DISCHARGE: 1.) OneTouch Verio Test Strips to check 1x/day. 2.) OneTouch Delica Lancets 33 gauge to check 1x/day. 08/09/21: Continue current medications and tx plan. Will switch trazodone to scheduled at qhs. 08/08/21: Stop lisinopril. Start losartan 25mg qd. Start metformin ER 500mg after breakfast. Start blood glucose checks before meals and at bedtime. Dietican consult. Continue with fluoxetine and trazodone. 08/07/21: Started fluoxetine 20mg qd. 08/06/21: The patient was admitted to the [facility] ([facility] mental health unit) on q15 min checks (behavioral with suicide precautions) for safety. The patient will participate in group, recreational, and milieu therapies and will be offered additional individual and family sessions as clinically appropriate. -Lisinopril 5 mg qd -propranolol 10mg BID for anxiety and tachycardia/HTN -trazodone 50mg hs prn for insomnia Inventory Assets Strengths: supportive family, intelligent, kind Needs: stability, medication management, additional coping skills, outpt services Suicide Risk Level Suicide Risk Level: High (q15 min suicide checks) (High-Moderate) Suicide Risk Level Comments: Intermittent active SI and attempt prior to admission with severe depression but he denies any plan nor intent, feels well supported by staff, feels safe on the unit, actively engaged and participating and forthcoming with good insight, agrees to alert nursing if SI changes, intensifies or if he has thoughts of plan or intent or if he feels unable to stay safe. Risk Factors Assessment Male: Yes : Yes Do You Have Access To A Gun?: No Health Problems: Yes Mental Health Diagnoses: Yes Substance Use Disorders: No Previous Attempt: No Family History of Suicide: No Previous Psychiatric Hospitalization: No Hopelessness: Yes Protective Factors Assessment Employed: No Stable Relationships: Yes Supportive Family: Yes Interval History Identifying Information EVIE CORREIA is a 36-year-old M who currently lives in [place] alone, has a history of depression, and was admitted on 08/05/21 10:41 on a 201 voluntary commitment for suicide attempt. Chief Complaint "I'm pretty groggy today". Review of Systems Sleep Information Total Hours of Sleep: 6.5 Sleep Comments: pt given vistaril per rn. pt on q-15 minute checks Meal Information Percent Meal Consumed - Breakfast: 100 Percent Meal Consumed - Lunch: 100 Percent Meal Consumed - Dinner: 100 Subjective Subjective Patient was seen & assessed and interval progress reviewed with treatment team nursing and social work. he took prn vistaril last night and it caused him to feel very groggy today. He would rather use the trazodone and have it scheduled. No side effects from fluoxetine. No side effects from losartan or metformin. Had case management intake call. Continues to have intermittent SI but no plan and feels safe on the unit. Physical Exam Psychiatric Orientation: alert and oriented x 3 Apperance: appropriately dressed and appropriately groomed Eye Contact: good eye contact Motor Behavior: no abnormal motor movements Speech: normal rate/rhythm/volume of speech Affect: + depressed affect and + blunted affect Mood: + depressed mood and + anxious mood Thought Process: goal directed thought process Thought Content: reality based without delusions, + hopelessness and + worthlessness Suicidal Thoughts: denies suicidal plan and denies suicidal intent; + reports suicidal thoughts (intermittent thoughts, had attempt prior to admission) Homicidal Thoughts: denies homicidal thoughts Hallucinations: no auditory hallucinations and no visual hallucinations Cognition: recent memory grossly intact, remote memory grossly intact, attention grossly intact and language grossly intact Estimated Intelligence: consistent with education level Insight: + fair insight Judgement: + fair judgement Vital Signs (Past 24 Hours) Last Vital Signs Temp 36.7 C 08/09/21 06:54 Pulse 101 H 08/09/21 06:55 Resp 18 08/09/21 06:54 BP 147/111 H 08/09/21 06:55 Pulse Ox 99 08/05/21 10:34 Results & Data ([facility]) Laboratory Results Laboratory Results - last 24 hr 08/08/21 08/08/21 08/09/21 17:24 20:47 08:21 POC Glucose 133 H 138 H 156 H Current Inpatient Medications Current Inpatient Medications: Current Inpatient Medications Acetaminophen (Acetaminophen 325 Mg Tab) 650 mg PO Q4H PRN PRN Reason: Headache or Minor Fever Stop: 09/04/21 13:29 Al Hydrox/Mg Hydrox/Simethicone (Aluminum/Magnesium Susp 30 Ml Udc) 30 ml PO Q4H PRN PRN Reason: GI Upset Stop: 09/04/21 13:29 Bismuth Subsalicylate (Bismuth Subsalicylate Liqd 236 Ml) 15 ml PO PRN PRN PRN Reason: Loose Stool Stop: 09/04/21 13:29 Fluoxetine HCl (Fluoxetine Hcl 20 Mg Cap) 20 mg PO QAM [facility] Stop: 09/06/21 08:59 Last Admin: 08/09/21 08:55 Dose: 20 mg Documented by: Hydroxyzine HCl (Hydroxyzine Hcl 25 Mg Tab) 50 mg PO HSZ PRN PRN Reason: Insomnia Stop: 09/04/21 13:29 Last Admin: 08/08/21 22:01 Dose: 50 mg Documented by: Hydroxyzine HCl (Hydroxyzine Hcl 25 Mg Tab) 25 mg PO Q4H PRN PRN Reason: Anxiety Stop: 09/04/21 13:29 Losartan Potassium (Losartan Potassium 25 Mg Tab) 25 mg PO QAM [facility] Stop: 09/08/21 08:59 Last Admin: 08/09/21 08:56 Dose: 25 mg Documented by: Magnesium Hydroxide (Magnesium Hydroxide Susp 30 Ml Udc) 30 ml PO DAILY PRN PRN Reason: Constipation Stop: 09/04/21 13:29 Metformin HCl (Metformin Hcl Er 500 Mg Tabcr) 500 mg PO DAILYBB AUTUMN Stop: 09/08/21 07:59 Last Admin: 08/09/21 08:55 Dose: 500 mg Documented by: Propranolol HCl (Propranolol Hcl 10 Mg Tab) 10 mg PO BID PRN PRN Reason: Anxiety Stop: 09/04/21 20:59 Last Admin: 08/05/21 16:02 Dose: 10 mg Documented by: Sodium Chloride (Sodium Chloride 0.65% Na Soln 45 Ml ([place])) 1 - 2 sprays NA PRN PRN PRN Reason: Nasal Dryness/Congestion Stop: 09/04/21 13:29 Trazodone HCl (Trazodone Hcl 50 Mg Tab) 50 mg PO HS AUTUMN Stop: 09/08/21 21:59 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
[2021-08-09] MEDS: traZODone HCL 50 MG TAB PO SCH (22:30)
[2021-08-10] MEDS: FLUoxetine HCL 20 MG CAP PO SCH (08:13)
[2021-08-10] MEDS: metFORMIN HCL ER 500 MG TABCR PO SCH (08:13)
[2021-08-10] MEDS: LOSARTAN POTASSIUM 25 MG TAB PO SCH (08:13)
--- NOTE | 2021-08-10 09:01 | Psychiatric Progress Note ---
Date of Service August 10, 2021 Impression / Recommendations Impression The patient is a 36 year old with a history of depression who was admitted for a very serious suicide attempt with extensive planning and preparations over multiple weeks. Diagnostically consistent with MDD, severe vs persistent depressive disorder, OMAR and social anxiety. The patient is deemed unstable and requires psychiatric hospitalization for diagnostic clarification, safety and stabilization, medication management and development of further coping skills. 08/09/21: Continues to present with severe depression and SI. HTN is better controlled. Re-check electrolytes tomorrow morning to ensure no worsening of hyponatremia. Tolerating fluoxetine well. (1) MDD (major depressive disorder), recurrent episode, severe: (2) Suicide attempt: (3) OMAR (generalized anxiety disorder): (4) Social anxiety disorder: (5) HTN (hypertension): Switch from lisinopril to losartan If BP remains elevated add amlodipine 2.5 mg qhs (6) Type II diabetes mellitus: Will need referral for endocrinology to learn to use glucometer/T2DM management If BG values remain > 120, will increase Metformin to 500mg x 2 AM on Thursday08/12/21 . PRESCRIPTIONS NEEDED AT DISCHARGE: 1.) OneTouch Verio Test Strips to check 1x/day. 2.) OneTouch Delica Lancets 33 gauge to check 1x/day. 08/10/21: Continue current medications and tx plan. Electrolytes labwork tomorrow morning. 08/09/21: Continue current medications and tx plan. Will switch trazodone to scheduled at [facility]. 08/08/21: Stop lisinopril. Start losartan 25mg qd. Start metformin ER 500mg after breakfast. Start blood glucose checks before meals and at bedtime. Dietican consult. Continue with fluoxetine and trazodone. 08/07/21: Started fluoxetine 20mg qd. 08/06/21: The patient was admitted to the [facility] ([facility] inpatient mental health unit) on q15 min checks (behavioral with suicide precautions) for safety. The patient will participate in group, recreational, and milieu therapies and will be offered additional individual and family sessions as clinically appropriate. -Lisinopril 5 mg qd -propranolol 10mg BID for anxiety and tachycardia/HTN -trazodone 50mg hs prn for insomnia Inventory Assets Strengths: supportive family, intelligent, kind Needs: stability, medication management, additional coping skills, outpt services Suicide Risk Level Suicide Risk Level: High (q15 min suicide checks) (High-Moderate) Suicide Risk Level Comments: Intermittent active SI with periods of thoughts of plans he had prior to admission and attempt prior to admission with severe depression but he denies any current plans related to being in the hospital nor intent, feels well supported by staff, feels safe on the unit, actively engaged and participating and forthcoming with good insight, agrees to alert nursing if SI changes, intensifies or if he has thoughts of plan related to being in the hospital or intent or if he feels unable to stay safe. Risk Factors Assessment Male: Yes : Yes Do You Have Access To A Gun?: No Health Problems: Yes Mental Health Diagnoses: Yes Substance Use Disorders: No Previous Attempt: No Family History of Suicide: No Previous Psychiatric Hospitalization: No Hopelessness: Yes Protective Factors Assessment Employed: No Stable Relationships: Yes Supportive Family: Yes Interval History Identifying Information EVEI CORREIA is a 36-year-old M who currently lives in [place] alone, has a history of depression, and was admitted on 08/05/21 10:41 on a 201 voluntary commitment for suicide attempt. Chief Complaint "The sleep medication worked better". Review of Systems Sleep Information Total Hours of Sleep: 7 Sleep Comments: pt given vistaril per rn. pt on q-15 minute checks Meal Information Percent Meal Consumed - Breakfast: 100 Percent Meal Consumed - Lunch: 100 Percent Meal Consumed - Dinner: 100 Subjective Subjective Patient was seen & assessed and interval progress reviewed with treatment team nursing and social work. he slept well last night and didn't have any of the grogginess this morning with the switch back to trazodone at [facility]. No medication side effects. Continues to feel depressed and anxious with intrusive SI throughout the day when he isn't distracted. At times has thoughts of ways he could that he researched prior to hospitalization that are intrusive and pop in his mind in the context of things other people say (for example noted another patient spoke about SI with plan of jumping from a building and he had this thought but then though 'that would more likely hurt you not kill you') but denies any plans for here in the hospital nor any intent. Continues to feel he could and would alert staff should he have any thoughts of SI with plans in the hospital or intent or if he feels unable to remain safe. Reviewed that prior to hospitalization and his attempt he had researched a variety of different methods to determine what would be most likely to kill him. Physical Exam Psychiatric Orientation: alert and oriented x 3 Apperance: appropriately dressed and appropriately groomed Eye Contact: good eye contact Motor Behavior: no abnormal motor movements Speech: normal rate/rhythm/volume of speech Affect: + depressed affect and + blunted affect (slightly less today with a few brief smiles ) Mood: + depressed mood and + anxious mood Thought Process: goal directed thought process Thought Content: reality based without delusions, + hopelessness and + worthlessness Suicidal Thoughts: denies suicidal intent; + reports suicidal thoughts (intermittent thoughts, had attempt prior to admission) and + reports suicidal plan (at times different plans but none for currently in the hospital ) Homicidal Thoughts: denies homicidal thoughts Hallucinations: no auditory hallucinations and no visual hallucinations Cognition: recent memory grossly intact, remote memory grossly intact, attention grossly intact and language grossly intact Estimated Intelligence: consistent with education level Insight: + fair insight Judgement: + fair judgement Vital Signs (Past 24 Hours) Last Vital Signs Temp 36.5 C 08/10/21 06:35 Pulse 101 H 08/10/21 06:37 Resp 18 08/10/21 06:35 BP 138/97 08/10/21 06:37 Pulse Ox 99 08/05/21 10:34 Results & Data ([facility]) Laboratory Results Laboratory Results - last 24 hr 08/10/21 08:05 POC Glucose 137 H Current Inpatient Medications Current Inpatient Medications: Current Inpatient Medications Acetaminophen (Acetaminophen 325 Mg Tab) 650 mg PO Q4H PRN PRN Reason: Headache or Minor Fever Stop: 09/04/21 13:29 Al Hydrox/Mg Hydrox/Simethicone (Aluminum/Magnesium Susp 30 Ml Udc) 30 ml PO Q4H PRN PRN Reason: GI Upset Stop: 09/04/21 13:29 Bismuth Subsalicylate (Bismuth Subsalicylate Liqd 236 Ml) 15 ml PO PRN PRN PRN Reason: Loose Stool Stop: 09/04/21 13:29 Fluoxetine HCl (Fluoxetine Hcl 20 Mg Cap) 20 mg PO QAM AUTUMN Stop: 09/06/21 08:59 Last Admin: 08/10/21 08:13 Dose: 20 mg Documented by: Hydroxyzine HCl (Hydroxyzine Hcl 25 Mg Tab) 50 mg PO HSZ PRN PRN Reason: Insomnia Stop: 09/04/21 13:29 Last Admin: 08/08/21 22:01 Dose: 50 mg Documented by: Hydroxyzine HCl (Hydroxyzine Hcl 25 Mg Tab) 25 mg PO Q4H PRN PRN Reason: Anxiety Stop: 09/04/21 13:29 Losartan Potassium (Losartan Potassium 25 Mg Tab) 25 mg PO QAM AUTUMN Stop: 09/08/21 08:59 Last Admin: 08/10/21 08:13 Dose: 25 mg Documented by: Magnesium Hydroxide (Magnesium Hydroxide Susp 30 Ml Udc) 30 ml PO DAILY PRN PRN Reason: Constipation Stop: 09/04/21 13:29 Metformin HCl (Metformin Hcl Er 500 Mg Tabcr) 500 mg PO DAILYBB AUTUMN Stop: 09/08/21 07:59 Last Admin: 08/10/21 08:13 Dose: 500 mg Documented by: Propranolol HCl (Propranolol Hcl 10 Mg Tab) 10 mg PO BID PRN PRN Reason: Anxiety Stop: 09/04/21 20:59 Last Admin: 08/05/21 16:02 Dose: 10 mg Documented by: Sodium Chloride (Sodium Chloride 0.65% Na Soln 45 Ml ([place])) 1 - 2 sprays NA PRN PRN PRN Reason: Nasal Dryness/Congestion Stop: 09/04/21 13:29 Trazodone HCl (Trazodone Hcl 50 Mg Tab) 50 mg PO HS AUTUMN Stop: 09/08/21 21:59 Last Admin: 08/09/21 22:30 Dose: 50 mg Documented by: Mental Health & Subst Abuse Tx Clinical Writer Name of Clinical Writer: [employer] Phone Number for Clinical Writer: [phone] Post Discharge Appointments Primary Care Physician Name Of Family Doctor: [facility] - Tashi Bain DO Primary Care Date of Appointment with PCP: 10/07/21 Time of Appointment with PCP: 1:40 PM Provider Appointment Comment: [id number] [place] [address] Contact Information Discharge Address: Parent's Address: [facility], [address], [place] [address]
[2021-08-10] MEDS: traZODone HCL 50 MG TAB PO SCH (22:16)
[2021-08-11] MEDS: FLUoxetine HCL 20 MG CAP PO SCH (07:27)
[2021-08-11] MEDS: metFORMIN HCL ER 500 MG TABCR PO SCH (07:27)
[2021-08-11] MEDS: LOSARTAN POTASSIUM 25 MG TAB PO SCH (07:28)
--- NOTE | 2021-08-11 08:53 | Psychiatric Progress Note ---
Date of Service August 11, 2021 Impression / Recommendations Impression The patient is a 36 year old with a history of depression who was admitted for a very serious suicide attempt with extensive planning and preparations over multiple weeks. Diagnostically consistent with MDD, severe vs persistent depressive disorder, OMAR and social anxiety. The patient is deemed unstable and requires psychiatric hospitalization for diagnostic clarification, safety and stabilization, medication management and development of further coping skills. 08/11/21: Continues to present with severe depression and SI with ongoing periods of ambivalence about having survived the suicide attempt. Reviewed electrolytes which showed normal Na+ and K+. Will increase losartan dose given ongoing HTN. He consents to increasing fluoxetine. (1) MDD (major depressive disorder), recurrent episode, severe: (2) Suicide attempt: (3) OMAR (generalized anxiety disorder): (4) Social anxiety disorder: (5) HTN (hypertension): Switch from lisinopril to losartan If BP remains elevated add amlodipine 2.5 mg qhs (6) Type II diabetes mellitus: Will need referral for endocrinology to learn to use glucometer/T2DM management If BG values remain > 120, will increase Metformin to 500mg x 2 AM on Thursday08/12/21 . PRESCRIPTIONS NEEDED AT DISCHARGE: 1.) OneTouch Verio Test Strips to check 1x/day. 2.) OneTouch Delica Lancets 33 gauge to check 1x/day. 08/11/21: Increase fluoxetine to 40mg qd (given prior trial of 20mg many years ago with no benefit and severity of depression symptoms felt to be appropriate rather than waiting for 4-6 weeks at 20mg before assessing need for higher dose). Increase lorsartan to 50mg qd for HTN. 08/10/21: Continue current medications and tx plan. Electrolytes labwork tomorrow morning. 08/09/21: Continue current medications and tx plan. Will switch trazodone to scheduled at [facility]. 08/08/21: Stop lisinopril. Start losartan 25mg qd. Start metformin ER 500mg after breakfast. Start blood glucose checks before meals and at bedtime. Dietican consult. Continue with fluoxetine and trazodone. 08/07/21: Started fluoxetine 20mg qd. 08/06/21: The patient was admitted to the [facility] ([facility] mental health unit) on q15 min checks (behavioral with suicide precautions) for safety. The patient will participate in group, recreational, and milieu therapies and will be offered additional individual and family sessions as clinically appropriate. -Lisinopril 5 mg qd -propranolol 10mg BID for anxiety and tachycardia/HTN -trazodone 50mg hs prn for insomnia Inventory Assets Strengths: supportive family, intelligent, kind Needs: stability, medication management, additional coping skills, outpt services Suicide Risk Level Suicide Risk Level: High (q15 min suicide checks) (High-Moderate) Suicide Risk Level Comments: Intermittent active SI with periods of thoughts of plans he had prior to admission and attempt prior to admission with severe depression but he denies any current plans related to being in the hospital nor intent, feels well supported by staff, feels safe on the unit, actively engaged and participating and forthcoming with good insight, agrees to alert nursing if SI changes, intensifies or if he has thoughts of plan related to being in the hospital or intent or if he feels unable to stay safe. Risk Factors Assessment Male: Yes : Yes Do You Have Access To A Gun?: No Health Problems: Yes Mental Health Diagnoses: Yes Substance Use Disorders: No Previous Attempt: No Family History of Suicide: No Previous Psychiatric Hospitalization: No Hopelessness: Yes Protective Factors Assessment Employed: No Stable Relationships: Yes Supportive Family: Yes Interval History Identifying Information EVIE CORREIA is a 36-year-old M who currently lives in [place] alone, has a history of depression, and was admitted on 08/05/21 10:41 on a 201 voluntary commitment for suicide attempt. Chief Complaint "I'm ok, the family meeting brought up more thoughts of suicide, that if I had been successful I wouldn't being burdening my family like this". Review of Systems Sleep Information Total Hours of Sleep: 7 Sleep Comments: pt given vistaril per rn. pt on q-15 minute checks Meal Information Percent Meal Consumed - Breakfast: 90 Percent Meal Consumed - Lunch: 100 Percent Meal Consumed - Dinner: 100 Subjective Subjective Patient was seen & assessed and interval progress reviewed with treatment team nursing and social work. He slept well with trazodone. No side effects from medications. Had more SI and lower mood today in the context of family meeting as it brought up thoughts of being a burden and made him alliance party wish his suicide attempt had been successful. He noted he was able to challenge some of these "distorted thoughts" by reminding myself that my parents love me and want me to be here. No suicidal plan nor intent. He agrees to increase the fluoxetine. He's been working through the mental health workbook and focusing on cognitive distortions. Physical Exam Psychiatric Orientation: alert and oriented x 3 Apperance: appropriately dressed and appropriately groomed Eye Contact: good eye contact Motor Behavior: no abnormal motor movements Speech: normal rate/rhythm/volume of speech Affect: + depressed affect and + blunted affect Mood: + depressed mood and + anxious mood Thought Process: goal directed thought process Thought Content: reality based without delusions, + hopelessness and + worthlessness Suicidal Thoughts: denies suicidal intent; + reports suicidal thoughts (intermittent thoughts, had attempt prior to admission) and + reports suicidal plan (at times different plans outside the hospital, feels safe here) Homicidal Thoughts: denies homicidal thoughts Hallucinations: no auditory hallucinations and no visual hallucinations Cognition: recent memory grossly intact, remote memory grossly intact, attention grossly intact and language grossly intact Estimated Intelligence: consistent with education level Insight: + fair insight Judgement: + fair judgement Vital Signs (Past 24 Hours) Last Vital Signs Temp 36.4 C L 08/11/21 06:37 Pulse 105 H 08/11/21 06:37 Resp 18 08/11/21 06:37 BP 143/105 H 08/11/21 06:37 Pulse Ox 99 08/05/21 10:34 Results & Data ([facility]) Laboratory Results Laboratory Results - last 24 hr 08/10/21 08/11/21 08/11/21 22:13 07:18 07:54 Sodium Pending Potassium Pending Chloride Pending Carbon Dioxide Pending Anion Gap Pending POC Glucose 121 H 132 H Current Inpatient Medications Current Inpatient Medications: Current Inpatient Medications Acetaminophen (Acetaminophen 325 Mg Tab) 650 mg PO Q4H PRN PRN Reason: Headache or Minor Fever Stop: 09/04/21 13:29 Al Hydrox/Mg Hydrox/Simethicone (Aluminum/Magnesium Susp 30 Ml Udc) 30 ml PO Q4H PRN PRN Reason: GI Upset Stop: 09/04/21 13:29 Bismuth Subsalicylate (Bismuth Subsalicylate Liqd 236 Ml) 15 ml PO PRN PRN PRN Reason: Loose Stool Stop: 09/04/21 13:29 Fluoxetine HCl (Fluoxetine Hcl 20 Mg Cap) 20 mg PO QAM AUTUMN Stop: 09/06/21 08:59 Last Admin: 08/11/21 07:27 Dose: 20 mg Documented by: Hydroxyzine HCl (Hydroxyzine Hcl 25 Mg Tab) 50 mg PO HSZ PRN PRN Reason: Insomnia Stop: 09/04/21 13:29 Last Admin: 08/08/21 22:01 Dose: 50 mg Documented by: Hydroxyzine HCl (Hydroxyzine Hcl 25 Mg Tab) 25 mg PO Q4H PRN PRN Reason: Anxiety Stop: 09/04/21 13:29 Losartan Potassium (Losartan Potassium 25 Mg Tab) 25 mg PO QAM AUTUMN Stop: 09/08/21 08:59 Last Admin: 08/11/21 07:28 Dose: 25 mg Documented by: Magnesium Hydroxide (Magnesium Hydroxide Susp 30 Ml Udc) 30 ml PO DAILY PRN PRN Reason: Constipation Stop: 09/04/21 13:29 Metformin HCl (Metformin Hcl Er 500 Mg Tabcr) 500 mg PO DAILYBB AUTUMN Stop: 09/08/21 07:59 Last Admin: 08/11/21 07:27 Dose: 500 mg Documented by: Propranolol HCl (Propranolol Hcl 10 Mg Tab) 10 mg PO BID PRN PRN Reason: Anxiety Stop: 09/04/21 20:59 Last Admin: 08/05/21 16:02 Dose: 10 mg Documented by: Sodium Chloride (Sodium Chloride 0.65% Na Soln 45 Ml ([place])) 1 - 2 sprays NA PRN PRN PRN Reason: Nasal Dryness/Congestion Stop: 09/04/21 13:29 Trazodone HCl (Trazodone Hcl 50 Mg Tab) 50 mg PO HS AUTUMN Stop: 09/08/21 21:59 Last Admin: 08/10/21 22:16 Dose: 50 mg Documented by: Mental Health & Subst Abuse Tx Melter Super[employer] Name of Melter Supervisor [employer]: [employer] Phone Number for Melter Supervisor [employer]: [phone] Post Discharge Appointments Primary Care Physician Name Of Family Doctor: [facility] [employer] - Tashi Bain DO Primary Care Date of Appointment with PCP: 10/07/21 Time of Appointment with PCP: 1:40 PM Provider Appointment Comment: [id number], [address] [facility] [address] Contact Information Discharge Address: Parent's Address: [address] [place] [address], [address], [place] [address]
[2021-08-11 09:05] LABS: Potassium 4.2 mmol/L (3.5-5.1)
[2021-08-11] MEDS: traZODone HCL 50 MG TAB PO SCH (21:58)
[2021-08-12] MEDS: metFORMIN HCL ER 500 MG TABCR PO SCH (08:31)
[2021-08-12] MEDS: LOSARTAN POTASSIUM 50 MG TAB PO SCH (08:32)
[2021-08-12] MEDS: FLUoxetine HCL 20 MG CAP PO SCH (08:32)
[2021-08-12] MEDS ORDERED: metFORMIN HCL ER 500 MG TABCR PO SCH (09:00)
--- NOTE | 2021-08-12 09:07 | Psychiatric Progress Note ---
Date of Service August 12, 2021 Impression / Recommendations Impression The patient is a 36 year old with a history of depression who was admitted for a very serious suicide attempt with extensive planning and preparations over multiple weeks. Diagnostically consistent with MDD, severe vs persistent depressive disorder, OMAR and social anxiety. The patient is deemed unstable and requires psychiatric hospitalization for diagnostic clarification, safety and stabilization, medication management and development of further coping skills. 08/12/21: Continues to present with severe depression and SI with ongoing periods of ambivalence about having survived the suicide attempt and intermittent SI especially when not distracted. Tolerating first higher dose of fluoxetine. Reviewed BG levels over the last week and they remain >120 so will increase Metformin ER to 1000mg per day per recommendation of staff educator. Sukumar consents to this dose increase, he hasn't experienced any GI or other side effects so far. BP stable today. (1) MDD (major depressive disorder), recurrent episode, severe: (2) Suicide attempt: (3) OMAR (generalized anxiety disorder): (4) Social anxiety disorder: (5) HTN (hypertension): Switch from lisinopril to losartan If BP remains elevated add amlodipine 2.5 mg qhs (6) Type II diabetes mellitus: Will need referral for endocrinology to learn to use glucometer/T2DM management PRESCRIPTIONS NEEDED AT DISCHARGE: 1.) OneTouch Verio Test Strips to check 1x/day. 2.) OneTouch Delica Lancets 33 gauge to check 1x/day. 08/12/21: Increase Metformin ER to 1000mg qd. Continue with other medications and tx plan. Discussed CBT skills and ways to challenge distorted thinking. 08/11/21: Increase fluoxetine to 40mg qd (given prior trial of 20mg many years ago with no benefit and severity of depression symptoms felt to be appropriate rather than waiting for 4-6 weeks at 20mg before assessing need for higher dose). Increase lorsartan to 50mg qd for HTN. 08/10/21: Continue current medications and tx plan. Electrolytes labwork tomorrow morning. 08/09/21: Continue current medications and tx plan. Will switch trazodone to scheduled at qhs. 08/08/21: Stop lisinopril. Start losartan 25mg qd. Start metformin ER 500mg after breakfast. Start blood glucose checks before meals and at bedtime. Dietican consult. Continue with fluoxetine and trazodone. 08/07/21: Started fluoxetine 20mg qd. 08/06/21: The patient was admitted to the [facility] unit) on q15 min checks (behavioral with suicide precautions) for safety. The patient will participate in group, recreational, and milieu therapies and will be offered additional individual and family sessions as clinically appropriate. -Lisinopril 5 mg qd -propranolol 10mg BID for anxiety and tachycardia/HTN -trazodone 50mg hs prn for insomnia Inventory Assets Strengths: supportive family, intelligent, kind Needs: stability, medication management, additional coping skills, outpt services Suicide Risk Level Suicide Risk Level: High (q15 min suicide checks) (High-Moderate) Suicide Risk Level Comments: Intermittent active SI with periods of thoughts of plans he had prior to admission and attempt prior to admission with severe depression but he denies any current plans related to being in the hospital nor intent, feels well s upported by staff, feels safe on the unit, actively engaged and participating and forthcoming with good insight, agrees to alert nursing if SI changes, intensifies or if he has thoughts of plan related to being in the hospital or intent or if he feels unable to stay safe. Risk Factors Assessment Male: Yes : Yes Do You Have Access To A Gun?: No Health Problems: Yes Mental Health Diagnoses: Yes Substance Use Disorders: No Previous Attempt: No Family History of Suicide: No Previous Psychiatric Hospitalization: No Hopelessness: Yes Protective Factors Assessment Employed: No Stable Relationships: Yes Supportive Family: Yes Interval History Identifying Information SUKUMAR CORREIA is a 36-year-old M who currently lives in [place] alone, has a history of depression, and was admitted on 08/05/21 10:41 on a 201 voluntary commitment for suicide attempt. Chief Complaint "I'm ok". Review of Systems Sleep Information Total Hours of Sleep: 7 Sleep Comments: pt given vistaril per rn. pt on q-15 minute checks Meal Information Percent Meal Consumed - Breakfast: 100 Percent Meal Consumed - Lunch: 100 Percent Meal Consumed - Dinner: 100 Subjective Subjective Patient was seen & assessed and interval progress reviewed with treatment team nursing and social work. He's been reading the Feeling Good book and working on identifying cognitive distortions. Today he reports "ok" mood, continues to have SI especially when he's not distracted. No side effects from increased dose of fluoxetine this morning. Agrees to increase of metformin for blood sugar. Attending groups. Feeling that SI intensity is lessening a bit. Physical Exam Psychiatric Orientation: alert and oriented x 3 Apperance: appropriately dressed and appropriately groomed Eye Contact: good eye contact Motor Behavior: no abnormal motor movements Speech: normal rate/rhythm/volume of speech Affect: + depressed affect and + blunted affect Mood: + depressed mood and + anxious mood Thought Process: goal directed thought process Thought Content: reality based without delusions, + hopelessness and + worthlessness Suicidal Thoughts: denies suicidal intent; + reports suicidal thoughts (intermittent thoughts, had attempt prior to admission) and + reports suicidal plan (at times different plans outside the hospital, feels safe here) Homicidal Thoughts: denies homicidal thoughts Hallucinations: no auditory hallucinations and no visual hallucinations Cognition: recent memory grossly intact, remote memory grossly intact, attention grossly intact and language grossly intact Estimated Intelligence: consistent with education level Insight: good insight Judgement: + fair judgement Vital Signs (Past 24 Hours) Last Vital Signs Temp 36.6 C 08/12/21 06:00 Pulse 96 H 08/12/21 06:41 Resp 18 08/12/21 06:00 BP 123/87 08/12/21 06:41 Pulse Ox 96 08/12/21 06:00 Results & Data ([facility]) Laboratory Results Laboratory Results - last 24 hr 08/11/21 08/12/21 07:54 07:12 Sodium 137 Potassium 4.2 Chloride 102 Carbon Dioxide 26 Anion Gap 9 POC Glucose 128 H Current Inpatient Medications Current Inpatient Medications: Current Inpatient Medications Acetaminophen (Acetaminophen 325 Mg Tab) 650 mg PO Q4H PRN PRN Reason: Headache or Minor Fever Stop: 09/04/21 13:29 Al Hydrox/Mg Hydrox/Simethicone (Aluminum/Magnesium Susp 30 Ml Udc) 30 ml PO Q4H PRN PRN Reason: GI Upset Stop: 09/04/21 13:29 Bismuth Subsalicylate (Bismuth Subsalicylate Liqd 236 Ml) 15 ml PO PRN PRN PRN Reason: Loose Stool Stop: 09/04/21 13:29 Fluoxetine HCl (Fluoxetine Hcl 20 Mg Cap) 40 mg PO QAM AUTUMN Stop: 09/11/21 08:59 Last Admin: 08/12/21 08:32 Dose: 40 mg Documented by: Hydroxyzine HCl (Hydroxyzine Hcl 25 Mg Tab) 50 mg PO HSZ PRN PRN Reason: Insomnia Stop: 09/04/21 13:29 Last Admin: 08/08/21 22:01 Dose: 50 mg Documented by: Hydroxyzine HCl (Hydroxyzine Hcl 25 Mg Tab) 25 mg PO Q4H PRN PRN Reason: Anxiety Stop: 09/04/21 13:29 Losartan Potassium (Losartan Potassium 50 Mg Tab) 50 mg PO QAM AUTUMN Stop: 09/11/21 08:59 Last Admin: 08/12/21 08:32 Dose: 50 mg Documented by: Magnesium Hydroxide (Magnesium Hydroxide Susp 30 Ml Udc) 30 ml PO DAILY PRN PRN Reason: Constipation Stop: 09/04/21 13:29 Metformin HCl (Metformin Hcl Er 500 Mg Tabcr) 500 mg PO DAILY AUTUMN Stop: 09/08/21 07:59 Last Admin: 08/12/21 08:46 Dose: Not Given Documented by: Propranolol HCl (Propranolol Hcl 10 Mg Tab) 10 mg PO BID PRN PRN Reason: Anxiety Stop: 09/04/21 20:59 Last Admin: 08/05/21 16:02 Dose: 10 mg Documented by: Sodium Chloride (Sodium Chloride 0.65% Na Soln 45 Ml ([place])) 1 - 2 sprays NA PRN PRN PRN Reason: Nasal Dryness/Congestion Stop: 09/04/21 13:29 Trazodone HCl (Trazodone Hcl 50 Mg Tab) 50 mg PO HS AUTUMN Stop: 09/08/21 21:59 Last Admin: 08/11/21 21:58 Dose: 50 mg Documented by: Mental Health & Subst Abuse Tx Drink Mixer Name of Drink Mixer: [employer] Phone Number for Drink Mixer: [phone] Post Discharge Appointments Primary Care Physician Name Of Family Doctor: [facility] [employer] - Tashi Bain DO Primary Care Date of Appointment with PCP: 10/07/21 Time of Appointment with PCP: 1:40 PM Provider Appointment Comment: [id number], [place] [address] Contact Information Discharge Address: Parent's Address: [facility], [address], [place] [address]
[2021-08-12] MEDS: traZODone HCL 50 MG TAB PO SCH (21:21)
--- NOTE | 2021-08-13 08:57 | Psychiatric Progress Note ---
Date of Service August 13, 2021 Impression / Recommendations Impression The patient is a 36 year old with a history of depression who was admitted for a very serious suicide attempt with extensive planning and preparations over multiple weeks. Diagnostically consistent with MDD, severe vs persistent depressive disorder, OMAR and social anxiety. The patient is deemed unstable and requires psychiatric hospitalization for diagnostic clarification, safety and stabilization, medication management and development of further coping skills. 08/13/21: Continues to present with severe depression and SI. Tolerating higher dose of fluoxetine. Difficulty with sleep, he would like to try scheduled Vistaril tonight instead of trazodone. (1) MDD (major depressive disorder), recurrent episode, severe: (2) Suicide attempt: (3) OMAR (generalized anxiety disorder): (4) Social anxiety disorder: (5) HTN (hypertension): Switch from lisinopril to losartan If BP remains elevated add amlodipine 2.5 mg qhs (6) Type II diabetes mellitus: Will need referral for endocrinology to learn to use glucometer/T2DM management PRESCRIPTIONS NEEDED AT DISCHARGE: 1.) OneTouch Verio Test Strips to check 1x/day. 2.) OneTouch Delica Lancets 33 gauge to check 1x/day. 08/13/21: Stop trazodone, trial of Vistaril 50mg qhs for sleep. Continue with other medication and tx plan. Ongoing CBT work related to SI. 08/12/21: Increase Metformin ER to 1000mg qd. Continue with other medications and tx plan. Discussed CBT skills and ways to challenge distorted thinking. 08/11/21: Increase fluoxetine to 40mg qd (given prior trial of 20mg many years ago with no benefit and severity of depression symptoms felt to be appropriate rather than waiting for 4-6 weeks at 20mg before assessing need for higher dose). Increase lorsartan to 50mg qd for HTN. 08/10/21: Continue current medications and tx plan. Electrolytes labwork tomorrow morning. 08/09/21: Continue current medications and tx plan. Will switch trazodone to scheduled at qhs. 08/08/21: Stop lisinopril. Start losartan 25mg qd. Start metformin ER 500mg after breakfast. Start blood glucose checks before meals and at bedtime. Dietican consult. Continue with fluoxetine and trazodone. 08/07/21: Started fluoxetine 20mg qd. 08/06/21: The patient was admitted to the [facility] ([facility] mental health unit) on q15 min checks (behavioral with suicide precautions) for safety. The patient will participate in group, recreational, and milieu therapies and will be offered additional individual and family sessions as clinically appropriate. -Lisinopril 5 mg qd -propranolol 10mg BID for anxiety and tachycardia/HTN -trazodone 50mg hs prn for insomnia Inventory Assets Strengths: supportive family, intelligent, kind Needs: stability, medication management, additional coping skills, outpt services Suicide Risk Level Suicide Risk Level: High (q15 min suicide checks) (High-Moderate) Suicide Risk Level Comments: Intermittent active SI with periods of thoughts of plans he had prior to admission and attempt prior to admission with severe depression but he denies any current plans related to being in the hospital nor intent, feels well supported by staff, feels safe on the unit, actively engaged and participating and forthcoming with good insight, agrees to alert nursing if SI changes, intensifies or if he has thoughts of plan related to being in the hospital or intent or if he feels unable to stay safe. Risk Factors Assessment Male: Yes : Yes Do You Have Access To A Gun?: No Health Problems: Yes Mental Health Diagnoses: Yes Substance Use Disorders: No Previous Attempt: No Family History of Suicide: No Previous Psychiatric Hospitalization: No Hopelessness: Yes Protective Factors Assessment Employed: No Stable Relationships: Yes Supportive Family: Yes Interval History Identifying Information EVIE CORREIA is a 36-year-old M who currently lives in [place] alone, has a history of depression, and was admitted on 08/05/21 10:41 on a 201 voluntary commitment for suicide attempt. Chief Complaint "I feel more anxious and fidgety today". Review of Systems Sleep Information Total Hours of Sleep: 7 Sleep Comments: pt given vistaril per rn. pt on q-15 minute checks Meal Information Percent Meal Consumed - Breakfast: 100 Percent Meal Consumed - Lunch: 100 Percent Meal Consumed - Dinner: 100 Subjective Subjective Patient was seen & assessed and interval progress reviewed with treatment team nursing and social work. More difficulty with sleep last night, he's considering taking the trazodone earlier tonight. Had a spontaneous smile yesterday. Today notes some more success challenging SI by telling himself "that's a habit". Reviewed ways to challenge cognitive distortions. Feels more anxious and fidgety today but he thinks maybe due to larger groups and social anxiety component of this. No side effects from medication. Wonders about trying Vistaril tonight as difficulty sleeping last night even with trazodone. Physical Exam Psychiatric Orientation: alert and oriented x 3 Apperance: appropriately dressed and appropriately groomed Eye Contact: good eye contact Motor Behavior: no abnormal motor movements Speech: normal rate/rhythm/volume of speech Affect: + depressed affect and + blunted affect Mood: + depressed mood and + anxious mood Thought Process: goal directed thought process Thought Content: reality based without delusions, + hopelessness and + worthlessness Suicidal Thoughts: denies suicidal intent; + reports suicidal thoughts (intermittent thoughts, had attempt prior to admission) and + reports suicidal plan (at times different plans outside the hospital, feels safe here) Homicidal Thoughts: denies homicidal thoughts Hallucinations: no auditory hallucinations and no visual hallucinations Cognition: recent memory grossly intact, remote memory grossly intact, attention grossly intact and language grossly intact Estimated Intelligence: consistent with education level Insight: good insight Judgement: + fair judgement Vital Signs (Past 24 Hours) Last Vital Signs Temp 36.5 C 08/13/21 06:51 Pulse 96 H 08/13/21 06:51 Resp 18 08/13/21 06:51 BP 127/90 08/13/21 06:51 Pulse Ox 96 08/12/21 06:00 Results & Data ([facility]) Laboratory Results Laboratory Results - last 24 hr 08/13/21 08:30 POC Glucose 118 H Current Inpatient Medications Current Inpatient Medications: Current Inpatient Medications Acetaminophen (Acetaminophen 325 Mg Tab) 650 mg PO Q4H PRN PRN Reason: Headache or Minor Fever Stop: 09/04/21 13:29 Al Hydrox/Mg Hydrox/Simethicone (Aluminum/Magnesium Susp 30 Ml Udc) 30 ml PO Q4H PRN PRN Reason: GI Upset Stop: 09/04/21 13:29 Bismuth Subsalicylate (Bismuth Subsalicylate Liqd 236 Ml) 15 ml PO PRN PRN PRN Reason: Loose Stool Stop: 09/04/21 13:29 Fluoxetine HCl (Fluoxetine Hcl 20 Mg Cap) 40 mg PO QAM AUTUMN Stop: 09/11/21 08:59 Last Admin: 08/12/21 08:32 Dose: 40 mg Documented by: Hydroxyzine HCl (Hydroxyzine Hcl 25 Mg Tab) 50 mg PO HSZ PRN PRN Reason: Insomnia Stop: 09/04/21 13:29 Last Admin: 08/08/21 22:01 Dose: 50 mg Documented by: Hydroxyzine HCl (Hydroxyzine Hcl 25 Mg Tab) 25 mg PO Q4H PRN PRN Reason: Anxiety Stop: 09/04/21 13:29 Losartan Potassium (Losartan Potassium 50 Mg Tab) 50 mg PO QAM AUTUMN Stop: 09/11/21 08:59 Last Admin: 08/12/21 08:32 Dose: 50 mg Documented by: Magnesium Hydroxide (Magnesium Hydroxide Susp 30 Ml Udc) 30 ml PO DAILY PRN PRN Reason: Constipation Stop: 09/04/21 13:29 Metformin HCl (Metformin Hcl Er 500 Mg Tabcr) 1,000 mg PO DAILY AUTUMN Stop: 09/12/21 08:59 Propranolol HCl (Propranolol Hcl 10 Mg Tab) 10 mg PO BID PRN PRN Reason: Anxiety Stop: 09/04/21 20:59 Last Admin: 08/05/21 16:02 Dose: 10 mg Documented by: Sodium Chloride (Sodium Chloride 0.65% Na Soln 45 Ml ([place])) 1 - 2 sprays NA PRN PRN PRN Reason: Nasal Dryness/Congestion Stop: 09/04/21 13:29 Trazodone HCl (Trazodone Hcl 50 Mg Tab) 50 mg PO HS AUTUMN Stop: 09/08/21 21:59 Last Admin: 08/12/21 21:21 Dose: 50 mg Documented by: Mental Health & Subst Abuse Tx Oxidized Finish Plater Name of Oxidized Finish Plater: [employer] Phone Number for Oxidized Finish Plater: [phone] Post Discharge Appointments Primary Care Physician Name Of Family Doctor: [facility] - Tashi Bain DO Primary Care Date of Appointment with PCP: 10/07/21 Time of Appointment with PCP: 1:40 PM Provider Appointment Comment: [phone] [place] [address] Contact Information Discharge Address: Parent's Address: [facility], [address], [place] [address]
[2021-08-13] MEDS: FLUoxetine HCL 20 MG CAP PO SCH (09:28)
[2021-08-13] MEDS: LOSARTAN POTASSIUM 50 MG TAB PO SCH (09:29)
[2021-08-13] MEDS: metFORMIN HCL ER 500 MG TABCR PO SCH (09:30)
[2021-08-13] MEDS: hydrOXYzine HCl 25 MG TAB PO SCH (21:04)
[2021-08-14] MEDS: FLUoxetine HCL 20 MG CAP PO SCH (08:51)
[2021-08-14] MEDS: LOSARTAN POTASSIUM 50 MG TAB PO SCH (08:52)
[2021-08-14] MEDS: metFORMIN HCL ER 500 MG TABCR PO SCH (08:52)
--- NOTE | 2021-08-14 09:03 | Psychiatric Progress Note ---
Date of Service August 14, 2021 Impression / Recommendations Impression The patient is a 36 year old with a history of depression who was admitted for a very serious suicide attempt with extensive planning and preparations over multiple weeks. Diagnostically consistent with MDD, severe vs persistent depressive disorder, OMAR and social anxiety. The patient is deemed unstable and requires psychiatric hospitalization for diagnostic clarification, safety and stabilization, medication management and development of further coping skills. 08/14/21: Continues to present with depression and SI but affect is slowly brightening and he's very engaged with groups including doing a lot of CBT work which is helping him challenge the SI thoughts. Tolerating fluoxetine. Slept better with Vistaril, will discontinue trazodone per his preference. (1) MDD (major depressive disorder), recurrent episode, severe: (2) Suicide attempt: (3) OMAR (generalized anxiety disorder): (4) Social anxiety disorder: (5) HTN (hypertension): Switched from lisinopril to losartan If BP remains elevated could add amlodipine 2.5 mg qhs (6) Type II diabetes mellitus: Will need referral for endocrinology to learn to use glucometer/T2DM management PRESCRIPTIONS NEEDED AT DISCHARGE: 1.) OneTouch Verio Test Strips to check 1x/day. 2.) OneTouch Delica Lancets 33 gauge to check 1x/day. 08/14/21: Continue with medications and tx plan. Ongoing CBT work and discussion of ways to challenge SI/distorted thoughts. 08/13/21: Stop trazodone, trial of Vistaril 50mg qhs for sleep. Continue with other medication and tx plan. Ongoing CBT work related to SI. 08/12/21: Increase Metformin ER to 1000mg qd. Continue with other medications and tx plan. Discussed CBT skills and ways to challenge distorted thinking. 08/11/21: Increase fluoxetine to 40mg qd (given prior trial of 20mg many years ago with no benefit and severity of depression symptoms felt to be appropriate rather than waiting for 4-6 weeks at 20mg before assessing need for higher dose). Increase lorsartan to 50mg qd for HTN. 08/10/21: Continue current medications and tx plan. Electrolytes labwork tomorrow morning. 08/09/21: Continue current medications and tx plan. Will switch trazodone to scheduled at qhs. 08/08/21: Stop lisinopril. Start losartan 25mg qd. Start metformin ER 500mg after breakfast. Start blood glucose checks before meals and at bedtime. Dietican consult. Continue with fluoxetine and trazodone. 08/07/21: Started fluoxetine 20mg qd. 08/06/21: The patient was admitted to the [facility] on q15 min checks (behavioral with suicide precautions) for safety. The patient will participate in group, recreational, and milieu therapies and will be offered additional individual and family sessions as clinically appropriate. -Lisinopril 5 mg qd -propranolol 10mg BID for anxiety and tachycardia/HTN -trazodone 50mg hs prn for insomnia Inventory Assets Strengths: supportive family, intelligent, kind Needs: stability, medication management, additional coping skills, outpt services Suicide Risk Level Suicide Risk Level: Moderate (q15 min suicide checks) Suicide Risk Level Comments: Intermittent active SI but no longer with plans and attempt prior to admission with depression but he denies any current plans nor intent, feels well supported by staff, feels safe on the unit, actively engaged and participating and forthcoming with good insight, agrees to alert nursing if SI changes, intensifies or if he has thoughts of plan related to being in the hospital or intent or if he feels unable to stay safe. Risk Factors Assessment Male: Yes : Yes Do You Have Access To A Gun?: No Health Problems: Yes Mental Health Diagnoses: Yes Substance Use Disorders: No Previous Attempt: No Family History of Suicide: No Previous Psychiatric Hospitalization: No Hopelessness: Yes Protective Factors Assessment Employed: No Stable Relationships: Yes Supportive Family: Yes Interval History Identifying Information EVIE CORREIA is a 36-year-old M who currently lives in [place] alone, has a history of depression, and was admitted on 08/05/21 10:41 on a 201 voluntary commitment for suicide attempt. Chief Complaint "I'm a little better today, the exercise groups are giving me more energy". Review of Systems Sleep Information Total Hours of Sleep: 7.5 Sleep Comments: pt given vistaril per rn. pt on q-15 minute checks Meal Information Percent Meal Consumed - Breakfast: 100 Percent Meal Consumed - Lunch: 100 Percent Meal Consumed - Dinner: 100 Subjective Subjective Patient was seen & assessed and interval progress reviewed with treatment team nursing and social work. Engaged in groups. Met his CM today and has a plan for increased outpatient services. Continues to have SI but he feels this is less today and he's better able to distract from these thoughts and to use CBT skills. More future-oriented including thinking about possibility taking classes again at some point, or interviewing for a job (working on CBT thought record related to this) and wanting to do more regular physical activity. Discussed how he never really developed a relationship with his niece in part due to anxiety about how to act around kids and how to form of a relationship moving forward. No medication side effects. Slept better with Vistaril, he prefers this to trazodone. Physical Exam Psychiatric Orientation: alert and oriented x 3 Apperance: appropriately dressed and appropriately groomed Eye Contact: good eye contact Motor Behavior: no abnormal motor movements Speech: normal rate/rhythm/volume of speech Affect: + depressed affect (more smiles, brightening ) Mood: + depressed mood and + anxious mood Thought Process: goal directed thought process Thought Content: reality based without delusions Suicidal Thoughts: denies suicidal plan and denies suicidal intent; + reports suicidal thoughts (intermittent thoughts, had attempt prior to admission) Homicidal Thoughts: denies homicidal thoughts Hallucinations: no auditory hallucinations and no visual hallucinations Cognition: recent memory grossly intact, remote memory grossly intact, attention grossly intact and language grossly intact Estimated Intelligence: consistent with education level Insight: good insight Judgement: + fair judgement Vital Signs (Past 24 Hours) Last Vital Signs Temp 36.7 C 08/14/21 06:45 Pulse 108 H 08/14/21 06:46 Resp 18 08/14/21 06:45 BP 124/81 08/14/21 06:46 Pulse Ox 96 08/12/21 06:00 Results & Data ([facility]) Laboratory Results Laboratory Results - last 24 hr 08/14/21 08:13 POC Glucose 104 H Current Inpatient Medications Current Inpatient Medications: Current Inpatient Medications Acetaminophen (Acetaminophen 325 Mg Tab) 650 mg PO Q4H PRN PRN Reason: Headache or Minor Fever Stop: 09/04/21 13:29 Al Hydrox/Mg Hydrox/Simethicone (Aluminum/Magnesium Susp 30 Ml Udc) 30 ml PO Q4H PRN PRN Reason: GI Upset Stop: 09/04/21 13:29 Bismuth Subsalicylate (Bismuth Subsalicylate Liqd 236 Ml) 15 ml PO PRN PRN PRN Reason: Loose Stool Stop: 09/04/21 13:29 Fluoxetine HCl (Fluoxetine Hcl 20 Mg Cap) 40 mg PO QAM AUTUMN Stop: 09/11/21 08:59 Last Admin: 08/14/21 08:51 Dose: 40 mg Documented by: Hydroxyzine HCl (Hydroxyzine Hcl 25 Mg Tab) 25 mg PO Q4H PRN PRN Reason: Anxiety Stop: 09/04/21 13:29 Hydroxyzine HCl (Hydroxyzine Hcl 25 Mg Tab) 50 mg PO HSZ AUTUMN Stop: 09/12/21 21:59 Last Admin: 08/13/21 21:04 Dose: 50 mg Documented by: Losartan Potassium (Losartan Potassium 50 Mg Tab) 50 mg PO QAM AUTUMN Stop: 09/11/21 08:59 Last Admin: 08/14/21 08:52 Dose: 50 mg Documented by: Magnesium Hydroxide (Magnesium Hydroxide Susp 30 Ml Udc) 30 ml PO DAILY PRN PRN Reason: Constipation Stop: 09/04/21 13:29 Metformin HCl (Metformin Hcl Er 500 Mg Tabcr) 1,000 mg PO DAILY AUTUMN Stop: 09/12/21 08:59 Last Admin: 08/14/21 08:52 Dose: 1,000 mg Documented by: Propranolol HCl (Propranolol Hcl 10 Mg Tab) 10 mg PO BID PRN PRN Reason: Anxiety Stop: 09/04/21 20:59 Last Admin: 08/05/21 16:02 Dose: 10 mg Documented by: Sodium Chloride (Sodium Chloride 0.65% Na Soln 45 Ml ([place])) 1 - 2 sprays NA PRN PRN PRN Reason: Nasal Dryness/Congestion Stop: 09/04/21 13:29 Mental Health & Subst Abuse Tx Maintenance And Utilities Supervisor Name of Maintenance And Utilities Supervisor: [employer] - Dario Lugoyder Phone Number for Maintenance And Utilities Supervisor: [phone] Post Discharge Appointments Primary Care Physician Name Of Family Doctor: [facility] [place] [facility] - Tashi Bain DO Primary Care Date of Appointment with PCP: 10/07/21 Time of Appointment with PCP: 1:40 PM Provider Appointment Comment: [phone], [place] [address] Contact Information Discharge Address: Parent's Address: [address], [address], [place] [address]
[2021-08-14] MEDS: hydrOXYzine HCl 25 MG TAB PO SCH (21:24)
[2021-08-15] MEDS: LOSARTAN POTASSIUM 50 MG TAB PO SCH (08:21)
[2021-08-15] MEDS: FLUoxetine HCL 20 MG CAP PO SCH (08:21)
[2021-08-15] MEDS: metFORMIN HCL ER 500 MG TABCR PO SCH (08:21)
--- NOTE | 2021-08-15 09:07 | Psychiatric Progress Note ---
Date of Service August 15, 2021 Impression / Recommendations Impression The patient is a 36 year old with a history of depression who was admitted for a very serious suicide attempt with extensive planning and preparations over multiple weeks. Diagnostically consistent with MDD, severe vs persistent depressive disorder, OMAR and social anxiety. The patient is deemed unstable and requires psychiatric hospitalization for diagnostic clarification, safety and stabilization, medication management and development of further coping skills. 08/15/21: Continues to present with depression and some anxiety but it is improving and his SI is lessening significantly in recent days through CBT st rategies and other coping skills. He is future-oriented and tolerating medications without any side effects. We discussed more therapy approaches to intrusive thoughts and establishing new habits and thinking patterns. He continues to enjoy the exercise groups and finds that these help with energy and motivation. Sleeping better with Vistaril. Reviewed option for Wellbutrin augmentation in the future if fluoxetine doesn't offer enough effect after 4 weeks. (1) MDD (major depressive disorder), recurrent episode, severe: (2) Suicide attempt: (3) OMAR (generalized anxiety disorder): (4) Social anxiety disorder: (5) HTN (hypertension): Switched from lisinopril to losartan If BP remains elevated could add amlodipine 2.5 mg qhs (6) Type II diabetes mellitus: Will need referral for endocrinology to learn to use glucometer/T2DM management PRESCRIPTIONS NEEDED AT DISCHARGE: 1.) OneTouch Verio Test Strips to check 1x/day. 2.) OneTouch Delica Lancets 33 gauge to check 1x/day. 08/15/21: Continue with medications and tx plan. Ongoing CBT work. Reviewed option for CAMS approach in the future if SI were to re-emerge or worsen again. 08/14/21: Continue with medications and tx plan. Ongoing CBT work and discussion of ways to challenge SI/distorted thoughts. 08/13/21: Stop trazodone, trial of Vistaril 50mg qhs for sleep. Continue with other medication and tx plan. Ongoing CBT work related to SI. 08/12/21: Increase Metformin ER to 1000mg qd. Continue with other medications and tx plan. Discussed CBT skills and ways to challenge distorted thinking. 08/11/21: Increase fluoxetine to 40mg qd (given prior trial of 20mg many years ago with no benefit and severity of depression symptoms felt to be appropriate rather than waiting for 4-6 weeks at 20mg before assessing need for higher dose). Increase lorsartan to 50mg qd for HTN. 08/10/21: Continue current medications and tx plan. Electrolytes labwork tomorrow morning. 08/09/21: Continue current medications and tx plan. Will switch trazodone to scheduled at qhs. 08/08/21: Stop lisinopril. Start losartan 25mg qd. Start metformin ER 500mg after breakfast. Start blood glucose checks before meals and at bedtime. Dietican consult. Continue with fluoxetine and trazodone. 08/07/21: Started fluoxetine 20mg qd. 08/06/21: The patient was admitted to the [facility] ([facility]) on q15 min checks (behavioral with suicide precautions) for safety. The patient will participate in group, recreational, and milieu therapies and will be offered additional individual and family sessions as clinically appropriate. -Lisinopril 5 mg qd -propranolol 10mg BID for anxiety and tachycardia/HTN -trazodone 50mg hs prn for insomnia Inventory Assets Strengths: supportive family, intelligent, kind Needs: stability, medication management, additional coping skills, outpt services Suicide Risk Level Suicide Risk Level: Moderate (q15 min suicide checks) Suicide Risk Level Comments: Intermittent active SI but now very brief and no longer with plans and attempt prior to admission with depression but he denies any current plans nor intent, feels well supported by staff, feels safe on the unit, actively engaged and participating and forthcoming with good insight, agrees to alert nursing if SI changes or intensifies or if he feels unable to stay safe. Risk Factors Assessment Male: Yes : Yes Do You Have Access To A Gun?: No Health Problems: Yes Mental Health Diagnoses: Yes Substance Use Disorders: No Previous Attempt: No Family History of Suicide: No Previous Psychiatric Hospitalization: No Hopelessness: Yes Protective Factors Assessment Employed: No Stable Relationships: Yes Supportive Family: Yes Interval History Identifying Information EVIE CORREIA is a 36-year-old M who currently lives in [place] alone, has a history of depression, and was admitted on 08/05/21 10:41 on a 201 voluntary commitment for suicide attempt. Chief Complaint "I'm ok". Review of Systems Sleep Information Total Hours of Sleep: 7.5 Sleep Comments: pt given vistaril per rn. pt on q-15 minute checks Meal Information Percent Meal Consumed - Breakfast: 100 Percent Meal Consumed - Lunch: 100 Percent Meal Consumed - Dinner: 100 Subjective Subjective Patient was seen & assessed and interval progress reviewed with treatment team nursing and social work. He is nervous about difficulty of getting a therapist but feels that he will be able to navigate the different resources with his outpatient case consultant. His medical assistant ob gyn application was done for a preliminary period of time so additional paperwork was submitted with goal of him being approved for [facility] so he can access mental health resources. He had SI only once for 1 minute while completing the MA application due to anxiety and worrying about what would happen if he didn't get approved. But he feels he is now able to put the thoughts out of his mind quickly by using the internal family systems gratitude coping thought (thanking the thought for being helpful in the past but no longer being useful as a way to dismiss it) or with CBT skills he has been practicing. He has been talking to his parents and after he leaves the hospital they have a room at their home all ready for him. Physical Exam Psychiatric Orientation: alert and oriented x 3 Apperance: appropriately dressed and appropriately groomed Eye Contact: good eye contact Motor Behavior: no abnormal motor movements Speech: normal rate/rhythm/volume of speech Affect: euthymic affect Mood: + depressed mood and + anxious mood Thought Process: goal directed thought process Thought Content: reality based without delusions Suicidal Thoughts: denies suicidal plan and denies suicidal intent; + reports suicidal thoughts (one brief thought of SI today but without plan nor intent) Homicidal Thoughts: denies homicidal thoughts Hallucinations: no auditory hallucinations and no visual hallucinations Cognition: recent memory grossly intact, remote memory grossly intact, attention grossly intact and language grossly intact Estimated Intelligence: consistent with education level Insight: good insight Judgement: + fair judgement Vital Signs (Past 24 Hours) Last Vital Signs Temp 36.6 C 08/15/21 06:48 Pulse 88 08/15/21 06:48 Resp 18 08/15/21 06:48 BP 150/83 H 08/15/21 06:48 Pulse Ox 96 08/12/21 06:00 Results & Data ([facility]) Laboratory Results Laboratory Results - last 24 hr 08/15/21 07:21 POC Glucose 114 H Current Inpatient Medications Current Inpatient Medications: Current Inpatient Medications Acetaminophen (Acetaminophen 325 Mg Tab) 650 mg PO Q4H PRN PRN Reason: Headache or Minor Fever Stop: 09/04/21 13:29 Al Hydrox/Mg Hydrox/Simethicone (Aluminum/Magnesium Susp 30 Ml Udc) 30 ml PO Q4H PRN PRN Reason: GI Upset Stop: 09/04/21 13:29 Bismuth Subsalicylate (Bismuth Subsalicylate Liqd 236 Ml) 15 ml PO PRN PRN PRN Reason: Loose Stool Stop: 09/04/21 13:29 Fluoxetine HCl (Fluoxetine Hcl 20 Mg Cap) 40 mg PO QAM AUTUMN Stop: 09/11/21 08:59 Last Admin: 08/15/21 08:21 Dose: 40 mg Documented by: Hydroxyzine HCl (Hydroxyzine Hcl 25 Mg Tab) 25 mg PO Q4H PRN PRN Reason: Anxiety Stop: 09/04/21 13:29 Hydroxyzine HCl (Hydroxyzine Hcl 25 Mg Tab) 50 mg PO HSZ AUTUMN Stop: 09/12/21 21:59 Last Admin: 08/14/21 21:24 Dose: 50 mg Documented by: Losartan Potassium (Losartan Potassium 50 Mg Tab) 50 mg PO QAM AUTUMN Stop: 09/11/21 08:59 Last Admin: 08/15/21 08:21 Dose: 50 mg Documented by: Magnesium Hydroxide (Magnesium Hydroxide Susp 30 Ml Udc) 30 ml PO DAILY PRN PRN Reason: Constipation Stop: 09/04/21 13:29 Metformin HCl (Metformin Hcl Er 500 Mg Tabcr) 1,000 mg PO DAILY AUTUMN Stop: 09/12/21 08:59 Last Admin: 08/15/21 08:21 Dose: 1,000 mg Documented by: Propranolol HCl (Propranolol Hcl 10 Mg Tab) 10 mg PO BID PRN PRN Reason: Anxiety Stop: 09/04/21 20:59 Last Admin: 08/05/21 16:02 Dose: 10 mg Documented by: Sodium Chloride (Sodium Chloride 0.65% Na Soln 45 Ml ([place])) 1 - 2 sprays NA PRN PRN PRN Reason: Nasal Dryness/Congestion Stop: 09/04/21 13:29 Mental Health & Subst Abuse Tx Construction Sales Representative Name of Construction Sales Representative: [employer] - Dario Neal Phone Number for Construction Sales Representative: [phone] Post Discharge Appointments Primary Care Physician Name Of Family Doctor: [facility] - Tashi Bain DO Primary Care Date of Appointment with PCP: 10/07/21 Time of Appointment with PCP: 1:40 PM Provider Appointment Comment: [email or web address] [place] [address] Contact Information Discharge Address: Parent's Address: [address] [place] [address], [address] [facility] [address], [place] [address]
[2021-08-15] MEDS: hydrOXYzine HCl 25 MG TAB PO SCH (21:17)
[2021-08-16] MEDS: LOSARTAN POTASSIUM 50 MG TAB PO SCH (08:31)
[2021-08-16] MEDS: metFORMIN HCL ER 500 MG TABCR PO SCH (08:31)
[2021-08-16] MEDS: FLUoxetine HCL 20 MG CAP PO SCH (08:31)
--- NOTE | 2021-08-16 13:24 | Discharge Summary ---
Date of Service August 16, 2021 History of Present Illness Sukumar presents for worsening depression and suicide attempt in the context of multiple psychosocial stressors including financial strain (going through his savings) and his lease expiring and social isolation. States he didn't see a future for himself and had been thinking about suicide for many years but it intensified in winter of 2020 and he started to think about what he'd need to do before dying and started to think about when to . He didn't want his family to have to do the cleanup after he so he tried to get rid of as much of his stuff as possible. He had also accumulated items from various hobbies so he got rid of these as well as his kitchen tools and furniture. Before attempting suicide he only had the appliances left and a few bathroom toiletries and a few plates and only a few sets of clothes because he had counted down how many days he planned to live. He had gotten rid of his mattress, trash and had a computer desk left and it took a few days to dismantle it and get rid of it. He packed up his electronics and had them available to be donated in his car. After getting rid of everything he realized that he could act on the suicidal thoughts and then he wrote and printed letters- he left his parents letters on the counter with keys and financial information and some he sent in the mail to the landlord, fire department and the police to let them know to do a welfare check and how to get into the apartment. He attempted suicide by overdosing on ibuprofen, attempted to hang himself and tried to cut himself. After attempting suicide and it was unsuccessful he called a crisis line he found online. Then the police arrived for a welfare check and then he was brought to the ED. No active SI but general future anxiety makes him worse about the moment and leads to passive SI. He has been experiencing depression chronically since about high school with lots of anxiety and he feels he coped with anxious worries by thinking "it's ok I'm going to anyway". This thought of the eventuality of dying by suicide a llowed him to rationale not progressing in college classes, not trying to find new work, depleting his fci and savings, not going to the dentist, not going to the doctor and not paying for car registration. He notes that the symptoms have been there "for awhile" and saw little point in a future. He identifies depression symptoms including worthlessness, being a buden, having no purpose, hopeless, lack of motivation, low energy, decreased concentration, apathy, increased appetite, decreased sleep with nighttime awakenings and chronic SI. Endorses symptoms of anxiety including generalized worries, worst case scenario thinking, and social anxiety. He also endorses memory issues. Psychiatric ROS notable for no history of emmy, no hx psychosis, no hx OCD. Physical Exam Vital Signs (Past 24 Hours) Last Vital Signs Temp 36.5 C 08/16/21 06:44 Pulse 101 H 08/16/21 06:46 Resp 18 08/16/21 06:44 BP 144/95 H 08/16/21 06:46 Pulse Ox 96 08/12/21 06:00 See admission H&P and DOD summary. Principal Diagnosis Major Depressive Disorder with anxious distress Psychiatric Data See daily stay summary. Sukumar presented after a detailed and planned out suicide attempt in the context of severe major depression with anxious distress and OMAR with some obsessional triats. Y-BOCS and clinical interview were inconsistent with OCD but rather he may have some traits of OCPD. In short, patient was engaged with the social/therapeutic milieu of the unit, safety was maintained and the patient was cooperative with care. He was actively engaged in groups and especially found that he enjoyed the exercise group and using resistance bands. He was very self-motivated in starting to learn about CBT and worked though the Feeling Good CBT handbook during his admission developing many strategies to manage his intrusive SI. He had not seen any health care providers in many years so in additional to typical admission labwork we also checked his fasting lipid panel and glucose. He was found to have a HBA1c consistent with TIIDM and management for this and HTN was started based on consultation with the [facility] hospitalist, chip silo tender and conservation educator. A family session was held and safety plan was completed prior to discharge. Medication changes included initiation of Metformin ER which was titrated based on fasting AM blood sugars, losartan (he had a throat tickle with brief lisinopril trial), fluoxetine for MDD and OMAR and hydroxyzine for insomnia and he tolerated this well. If insomnia persists as depression improves consideration should be made for a sleep study referral to rule out JOSE G (Dexter Sleepiness scale was within normal limits). If depression and anxiety remain suboptimally controlled after 4 weeks would consider further titration of fluoxetine and potential augmentation with Wellbutrin. Would avoid any augmentation with antipsychotics given metabolic effects and the role that metabolic challenges negatively impacted his sense of self-worth and self-image leading in part to some of the reasons for his suicide attempt prior to admission. Even with initiation of losartan he had periods of elevated BP during his stay, hospitalists had suggested possible future addition of amlodipine if needed. In the days leading up to discharge his SI reduced dramatically in frequency and intensity occuring only a few days per day for less than one minute in duration and without plan or intent. He felt able to put these thoughts quickly out of his mind by using CBT strategies such as "that is no longer a helpful coping mechanism". He actively and insightfully participated in safety planning and in discussions about ways to seek support and recognizing warning signs and utilizing coping skills. Reviewed mobile apps that could be used for additional ways to have their safety plan and contacts easily available should thoughts of SI re-emerge in the future. Reviewed importance of seeking emergency care should SI intensify, worsen or should they feel unsafe in the future which they agree to do. On the day of discharge he stated his mood was "good" and remained future-oriented including moving in with his family, going for walks multiple times per day, continuing to work on CBT strategies, possibly getting a pet, eventually maybe going back to school and getting a job again and engaging in aftercare appointments for psychiatry, case management, CSG and peer support. He also understands which community providers he can contact once he receives his [facility] insurance card/approval within the next 1-2 weeks to schedule a therapy appointment and that he can reach out to his family independence case manager should any issues arise with this process. Day of Discharge Assessment Today the patient voices readiness for discharge. They note improvement in mood and anxiety. They deny thoughts of harm to self or others. Had one brief thought of SI that lasted for 1 minute today but it was a thought of passive SI and ego- dystonic and without plan nor intent. He feels able to safely manage these thoughts as he views them as a habitually thought he used to have to cope and before it was ego-syntonic and is now ego-dystonic and he can challenge the thoughts and switch to other strategies and thoughts easily including distraction and new ways of managing anxiety. Thoughts are organized and they are clinically improved from admission. There is no evidence of psychosis. They improved in the hospital with support and medication adjustments. They agree to take medications as prescribed and keep follow-up appointments. At the time of the discharge they are deemed to be stable and appropriate for outpatient level of care. They are not deemed to be at imminent risk of harm to self or others. They are aware of emergency and crisis services. Knows to call 911 or go to nearest emergency care center if in a crisis which cannot be handled as an outpatient. Transition of Care Transition Of Care Record: was reviewed with the patient Advance Directives Advance Directives Information Provided: Yes Advance Directives: No Mental Health Advance Directive: No Advance Directives on File: No Living Will: No Power of Golf Cart Attendant: No Advance Directives Reason:: Declines as Mental Health Visit. Suicide Risk Level Suicide Risk Level Comments: Acute risk is low given improvement in mood and denial of active SI, and SI is now passive and ego-syntonic and only occurs for <1 minute in duration, lack of access to lethal means, plan to avoid substance use , improvement in sleep, hopefulness, talked with his supports openly, has good insight, and future- oriented. Chronic risk is moderate given prior attempt, mood disorder, planned out attempt, but also with protective factors of satisfaction with life, sense of responsibility to family, capacity for self-observation, positive coping skills, positive problem solving, capacity to self-regulate, capacity to realistically appraise his self and life circumstances, capacity to establish a therapeutic alliance, and willingness to comply with the treatment plan. Counseled on ways to reduce acute and chronic risk including engaging with outpatient providers, using safety plan if needed, utilizing supports, taking medication, and using coping skills. Modifiable risk factors of SI, anxiety and depression were addressed during hospitalization through development of new coping skills, family meeting, safety planning, and medication adjustments. Risk Factors Assessment Male: Yes : Yes Do You Have Access To A Gun?: No Health Problems: Yes Mental Health Diagnoses: Yes Substance Use Disorders: No Previous Attempt: No Family History of Suicide: No Previous Psychiatric Hospitalization: No Hopelessness: No Protective Factors Assessment Employed: No Stable Relationships: Yes Supportive Family: Yes Discharge Data Lab Results 08/05/21 08/05/21 08/05/21 06:37 06:37 06:37 WBC 5.47 RBC 4.97 Hgb 13.8 L Hct 40.1 L MCV 80.7 MCH 27.8 MCHC 34.4 RDW Std Deviation 38.6 RDW Coeff of Nany 13.2 Plt Count 256 MPV 9.9 Immature Gran % (Auto) 0.2 Neut % (Auto) 60.2 Lymph % (Auto) 32.5 Starke % (Auto) 6.0 Eos % (Auto) 0.9 Baso % (Auto) 0.2 Neut # (Auto) 3.29 Lymph # (Auto) 1.78 Starke # (Auto) 0.33 Eos # (Auto) 0.05 Baso # (Auto) 0.01 Immature Gran # (Auto) 0.01 Sodium 134 L Potassium 3.6 Chloride 100 Carbon Dioxide 25 Anion Gap 9 BUN 12 Creatinine 0.76 Est Cr Clr Drug Dosing 227.5 Est GFR ( Amer) 135.1 Est GFR (Non-Af Amer) 116.6 BUN/Creatinine Ratio 15.8 Glucose 226 H POC Glucose Fasting Glucose Estimat Average Glucose Hemoglobin A1c Calcium 9.4 Total Bilirubin 0.7 AST 24 ALT 30 Alkaline Phosphatase 50 Total Protein 6.8 Albumin 4.3 Globulin 2.5 Albumin/Globulin Ratio 1.7 Triglycerides Cholesterol LDL Cholesterol, Calc VLDL Cholesterol, Calc HDL Cholesterol Cholesterol/HDL Ratio TSH 2.429 Urine Color Urine Appearance Urine pH Ur Specific Arena Urine Protein Urine Glucose (UA) Urine Ketones Urine Blood Urine Nitrite Urine Bilirubin Urine Urobilinogen Ur Leukocyte Esterase Salicylates Urine Opiates Screen Ur Methadone, Qual Acetaminophen Urine Barbiturates Ur Phencyclidine (PCP) U Amphetamin/Meth Scrn MDMA (Ecstasy) Screen U Benzodiazepines Scrn Ur Cocaine Metabolite U Marijuana (THC) Screen Ethyl Alcohol mg/dL SARS-CoV-2, RNA, NAAT 08/05/21 08/05/21 08/05/21 06:37 06:37 06:37 WBC RBC Hgb Hct MCV MCH MCHC RDW Std Deviation RDW Coeff of Nany Plt Count MPV Immature Gran % (Auto) Neut % (Auto) Lymph % (Auto) Starke % (Auto) Eos % (Auto) Baso % (Auto) Neut # (Auto) Lymph # (Auto) Starke # (Auto) Eos # (Auto) Baso # (Auto) Immature Gran # (Auto) Sodium Potassium Chloride Carbon Dioxide Anion Gap BUN Creatinine Est Cr Clr Drug Dosing Est GFR ( Amer) Est GFR (Non-Af Amer) BUN/Creatinine Ratio Glucose POC Glucose Fasting Glucose Estimat Average Glucose Hemoglobin A1c Calcium Total Bilirubin AST ALT Alkaline Phosphatase Total Protein Albumin Globulin Albumin/Globulin Ratio Triglycerides Cholesterol LDL Cholesterol, Calc VLDL Cholesterol, Calc HDL Cholesterol Cholesterol/HDL Ratio TSH Urine Color Urine Appearance Urine pH Ur Specific Arena Urine Protein Urine Glucose (UA) Urine Ketones Urine Blood Urine Nitrite Urine Bilirubin Urine Urobilinogen Ur Leukocyte Esterase Salicylates < 3.0 L Urine Opiates Screen Ur Methadone, Qual Acetaminophen < 3 L Urine Barbiturates Ur Phencyclidine (PCP) U Amphetamin/Meth Scrn MDMA (Ecstasy) Screen U Benzodiazepines Scrn Ur Cocaine Metabolite U Marijuana (THC) Screen Ethyl Alcohol mg/dL < 10.0 SARS-CoV-2, RNA, NAAT NEGATIVE 08/05/21 08/05/21 08/07/21 07:30 07:30 08:23 WBC RBC Hgb Hct MCV MCH MCHC RDW Std Deviation RDW Coeff of Nany Plt Count MPV Immature Gran % (Auto) Neut % (Auto) Lymph % (Auto) Starke % (Auto) Eos % (Auto) Baso % (Auto) Neut # (Auto) Lymph # (Auto) Starke # (Auto) Eos # (Auto) Baso # (Auto) Immature Gran # (Auto) Sodium Potassium Chloride Carbon Dioxide Anion Gap BUN Creatinine Est Cr Clr Drug Dosing Est GFR ( Amer) Est GFR (Non-Af Amer) BUN/Creatinine Ratio Glucose POC Glucose Fasting Glucose 174 H Estimat Average Glucose Hemoglobin A1c Calcium Total Bilirubin AST ALT Alkaline Phosphatase Total Protein Albumin Globulin Albumin/Globulin Ratio Triglycerides 266 H Cholesterol 146 LDL Cholesterol, Calc 65 VLDL Cholesterol, Calc 53 H HDL Cholesterol 28 Cholesterol/HDL Ratio 5.2 H TSH Urine Color Yellow Urine Appearance Clear Urine pH 6.0 Ur Specific Arena 1.003 Urine Protein Negative Urine Glucose (UA) Negative Urine Ketones Negative Urine Blood Negative Urine Nitrite Negative Urine Bilirubin Negative Urine Urobilinogen Negative Ur Leukocyte Esterase Negative Salicylates Urine Opiates Screen Neg Ur Methadone, Qual Neg Acetaminophen Urine Barbiturates Neg Ur Phencyclidine (PCP) Neg U Amphetamin/Meth Scrn Neg MDMA (Ecstasy) Screen Neg U Benzodiazepines Scrn Neg Ur Cocaine Metabolite Neg U Marijuana (THC) Screen Neg Ethyl Alcohol mg/dL SARS-CoV-2, RNA, NAAT 08/07/21 08/08/21 08/08/21 08:23 17:24 20:47 WBC RBC Hgb Hct MCV MCH MCHC RDW Std Deviation RDW Coeff of Nany Plt Count MPV Immature Gran % (Auto) Neut % (Auto) Lymph % (Auto) Starke % (Auto) Eos % (Auto) Baso % (Auto) Neut # (Auto) Lymph # (Auto) Starke # (Auto) Eos # (Auto) Baso # (Auto) Immature Gran # (Auto) Sodium Potassium Chloride Carbon Dioxide Anion Gap BUN Creatinine Est Cr Clr Drug Dosing Est GFR ( Amer) Est GFR (Non-Af Amer) BUN/Creatinine Ratio Glucose POC Glucose 133 H 138 H Fasting Glucose Estimat Average Glucose 209 Hemoglobin A1c 8.9 H Calcium Total Bilirubin AST ALT Alkaline Phosphatase Total Protein Albumin Globulin Albumin/Globulin Ratio Triglycerides Cholesterol LDL Cholesterol, Calc VLDL Cholesterol, Calc HDL Cholesterol Cholesterol/HDL Ratio TSH Urine Color Urine Appearance Urine pH Ur Specific Arena Urine Protein Urine Glucose (UA) Urine Ketones Urine Blood Urine Nitrite Urine Bilirubin Urine Urobilinogen Ur Leukocyte Esterase Salicylates Urine Opiates Screen Ur Methadone, Qual Acetaminophen Urine Barbiturates Ur Phencyclidine (PCP) U Amphetamin/Meth Scrn MDMA (Ecstasy) Screen U Benzodiazepines Scrn Ur Cocaine Metabolite U Marijuana (THC) Screen Ethyl Alcohol mg/dL SARS-CoV-2, RNA, NAAT 08/09/21 08/10/21 08/10/21 08:21 08:05 22:13 WBC RBC Hgb Hct MCV MCH MCHC RDW Std Deviation RDW Coeff of Nany Plt Count MPV Immature Gran % (Auto) Neut % (Auto) Lymph % (Auto) Starke % (Auto) Eos % (Auto) Baso % (Auto) Neut # (Auto) Lymph # (Auto) Starke # (Auto) Eos # (Auto) Baso # (Auto) Immature Gran # (Auto) Sodium Potassium Chloride Carbon Dioxide Anion Gap BUN Creatinine Est Cr Clr Drug Dosing Est GFR ( Amer) Est GFR (Non-Af Amer) BUN/Creatinine Ratio Glucose POC Glucose 156 H 137 H 121 H Fasting Glucose Estimat Average Glucose Hemoglobin A1c Calcium Total Bilirubin AST ALT Alkaline Phosphatase Total Protein Albumin Globulin Albumin/Globulin Ratio Triglycerides Cholesterol LDL Cholesterol, Calc VLDL Cholesterol, Calc HDL Cholesterol Cholesterol/HDL Ratio TSH Urine Color Urine Appearance Urine pH Ur Specific Arena Urine Protein Urine Glucose (UA) Urine Ketones Urine Blood Urine Nitrite Urine Bilirubin Urine Urobilinogen Ur Leukocyte Esterase Salicylates Urine Opiates Screen Ur Methadone, Qual Acetaminophen Urine Barbiturates Ur Phencyclidine (PCP) U Amphetamin/Meth Scrn MDMA (Ecstasy) Screen U Benzodiazepines Scrn Ur Cocaine Metabolite U Marijuana (THC) Screen Ethyl Alcohol mg/dL SARS-CoV-2, RNA, NAAT 08/11/21 08/11/21 08/12/21 07:18 07:54 07:12 WBC RBC Hgb Hct MCV MCH MCHC RDW Std Deviation RDW Coeff of Nany Plt Count MPV Immature Gran % (Auto) Neut % (Auto) Lymph % (Auto) Starke % (Auto) Eos % (Auto) Baso % (Auto) Neut # (Auto) Lymph # (Auto) Starke # (Auto) Eos # (Auto) Baso # (Auto) Immature Gran # (Auto) Sodium 137 Potassium 4.2 Chloride 102 Carbon Dioxide 26 Anion Gap 9 BUN Creatinine Est Cr Clr Drug Dosing Est GFR ( Amer) Est GFR (Non-Af Amer) BUN/Creatinine Ratio Glucose POC Glucose 132 H 128 H Fasting Glucose Estimat Average Glucose Hemoglobin A1c Calcium Total Bilirubin AST ALT Alkaline Phosphatase Total Protein Albumin Globulin Albumin/Globulin Ratio Triglycerides Cholesterol LDL Cholesterol, Calc VLDL Cholesterol, Calc HDL Cholesterol Cholesterol/HDL Ratio TSH Urine Color Urine Appearance Urine pH Ur Specific Arena Urine Protein Urine Glucose (UA) Urine Ketones Urine Blood Urine Nitrite Urine Bilirubin Urine Urobilinogen Ur Leukocyte Esterase Salicylates Urine Opiates Screen Ur Methadone, Qual Acetaminophen Urine Barbiturates Ur Phencyclidine (PCP) U Amphetamin/Meth Scrn MDMA (Ecstasy) Screen U Benzodiazepines Scrn Ur Cocaine Metabolite U Marijuana (THC) Screen Ethyl Alcohol mg/dL SARS-CoV-2, RNA, NAAT 08/13/21 08/14/21 08/15/21 08:30 08:13 07:21 WBC RBC Hgb Hct MCV MCH MCHC RDW Std Deviation RDW Coeff of Nany Plt Count MPV Immature Gran % (Auto) Neut % (Auto) Lymph % (Auto) Starke % (Auto) Eos % (Auto) Baso % (Auto) Neut # (Auto) Lymph # (Auto) Starke # (Auto) Eos # (Auto) Baso # (Auto) Immature Gran # (Auto) Sodium Potassium Chloride Carbon Dioxide Anion Gap BUN Creatinine Est Cr Clr Drug Dosing Est GFR ( Amer) Est GFR (Non-Af Amer) BUN/Creatinine Ratio Glucose POC Glucose 118 H 104 H 114 H Fasting Glucose Estimat Average Glucose Hemoglobin A1c Calcium Total Bilirubin AST ALT Alkaline Phosphatase Total Protein Albumin Globulin Albumin/Globulin Ratio Triglycerides Cholesterol LDL Cholesterol, Calc VLDL Cholesterol, Calc HDL Cholesterol Cholesterol/HDL Ratio TSH Urine Color Urine Appearance Urine pH Ur Specific Arena Urine Protein Urine Glucose (UA) Urine Ketones Urine Blood Urine Nitrite Urine Bilirubin Urine Urobilinogen Ur Leukocyte Esterase Salicylates Urine Opiates Screen Ur Methadone, Qual Acetaminophen Urine Barbiturates Ur Phencyclidine (PCP) U Amphetamin/Meth Scrn MDMA (Ecstasy) Screen U Benzodiazepines Scrn Ur Cocaine Metabolite U Marijuana (THC) Screen Ethyl Alcohol mg/dL SARS-CoV-2, RNA, NAAT 08/16/21 07:22 WBC RBC Hgb Hct MCV MCH MCHC RDW Std Deviation RDW Coeff of Nany Plt Count MPV Immature Gran % (Auto) Neut % (Auto) Lymph % (Auto) Starke % (Auto) Eos % (Auto) Baso % (Auto) Neut # (Auto) Lymph # (Auto) Starke # (Auto) Eos # (Auto) Baso # (Auto) Immature Gran # (Auto) Sodium Potassium Chloride Carbon Dioxide Anion Gap BUN Creatinine Est Cr Clr Drug Dosing Est GFR ( Amer) Est GFR (Non-Af Amer) BUN/Creatinine Ratio Glucose POC Glucose 114 H Fasting Glucose Estimat Average Glucose Hemoglobin A1c Calcium Total Bilirubin AST ALT Alkaline Phosphatase Total Protein Albumin Globulin Albumin/Globulin Ratio Triglycerides Cholesterol LDL Cholesterol, Calc VLDL Cholesterol, Calc HDL Cholesterol Cholesterol/HDL Ratio TSH Urine Color Urine Appearance Urine pH Ur Specific Arena Urine Protein Urine Glucose (UA) Urine Ketones Urine Blood Urine Nitrite Urine Bilirubin Urine Urobilinogen Ur Leukocyte Esterase Salicylates Urine Opiates Screen Ur Methadone, Qual Acetaminophen Urine Barbiturates Ur Phencyclidine (PCP) U Amphetamin/Meth Scrn MDMA (Ecstasy) Screen U Benzodiazepines Scrn Ur Cocaine Metabolite U Marijuana (THC) Screen Ethyl Alcohol mg/dL SARS-CoV-2, RNA, NAAT Hospital Course (1) MDD (major depressive disorder), recurrent episode, severe: (2) OMAR (generalized anxiety disorder): (3) Suicide attempt: (4) Social anxiety disorder: (5) Type II diabetes mellitus: Will need referral for endocrinology to learn to use glucometer/T2DM management PRESCRIPTIONS NEEDED AT DISCHARGE: 1.) OneTouch Verio Test Strips to check 1x/day. 2.) OneTouch Delica Lancets 33 gauge to check 1x/day. (6) HTN (hypertension): 08/15/21: Continue with medications and tx plan. Ongoing CBT work. Reviewed option for CAMS approach in the future if SI were to re-emerge or worsen again. 08/14/21: Continue with medications and tx plan. Ongoing CBT work and discussion of ways to challenge SI/distorted thoughts. 08/13/21: Stop trazodone, trial of Vistaril 50mg qhs for sleep. Continue with other medication and tx plan. Ongoing CBT work related to SI. 08/12/21: Increase Metformin ER to 1000mg qd. Continue with other medications and tx plan. Discussed CBT skills and ways to challenge distorted thinking. 08/11/21: Increase fluoxetine to 40mg qd (given prior trial of 20mg many years ago with no benefit and severity of depression symptoms felt to be appropriate rather than waiting for 4-6 weeks at 20mg before assessing need for higher dose). Increase lorsartan to 50mg qd for HTN. 08/10/21: Continue current medications and tx plan. Electrolytes labwork tomorrow morning. 08/09/21: Continue current medications and tx plan. Will switch trazodone to scheduled at [facility]. 08/08/21: Stop lisinopril. Start losartan 25mg qd. Start metformin ER 500mg after breakfast. Start blood glucose checks before meals and at bedtime. Dietican consult. Continue with fluoxetine and trazodone. 08/07/21: Started fluoxetine 20mg qd. 08/06/21: The patient was admitted to the [facility] ([facility]) on q15 min checks (behavioral with suicide precautions) for safety. The patient will participate in group, recreational, and milieu therapies and will be offered additional individual and family sessions as clinically appropriate. -Lisinopril 5 mg qd -propranolol 10mg BID for anxiety and tachycardia/HTN -trazodone 50mg hs prn for insomnia Mental Health & Subst Abuse Tx Psychiatrist Name of Psychiatrist: Brayan Mejia - Lex Carranza PA-C Psychiatrist's Date of Appointment with Psychiatrist: 09/10/21 Time of Appointment with Psychiatrist: 8:15 AM Psychiatric Appointment Comment: [address] [facility] Therapist Name of Therapist: Xifedericochristelle Art Therapist's Time of Therapist Appointment: Call once insurance is active to discuss intake for therapy. Therapy Appointment Comment: [address] [facility], [address], [place] [address] Metal Extrusion Supervisor Name of Metal Extrusion Supervisor: [employer] - Dario Neal Phone Number for Metal Extrusion Supervisor: [phone] Date of Appointment with Metal Extrusion Supervisor: 08/21/21 Time of Appointment with Metal Extrusion Supervisor: 10:00 AM Case Management Appointment Comment: Dario will meet you at your home. Post Discharge Appointments Primary Care Physician Name Of Family Doctor: DULCE hetras - Tashi Bain DO Primary Care Date of Appointment with PCP: 10/07/21 Time of Appointment with PCP: 1:40 PM Provider Appointment Comment: [id number] [id number] Contact Information Discharge Discharge Address: Parent's Address: [address] [place] [address], [place] [address] Discharge Plan Discharge Items Patient Disposition: Home - Self-Care Reason For Visit: MDD Discharge Diagnosis: Major Depressive Disorder with anxious distress Activity: Resume your previous activity Non-emergency contact: Primary Care Provider and Psychiatrist Call non-emergency contact if: you have any medication questions and your symptoms worsen Follow-up/Referrals: PCP,NO [Primary Care Provider] - Diet: Regular Addtl Attending Provider Instructions: Optional mobile apps: -Suicide safety plan -[facility] SPECIAL CARE INSTRUCTIONS: 1. Follow through with your scheduled aftercare appointments. If unable to keep an appointment, please call to reschedule. 2. Take your medication only as prescribed. Medication should not be changed or stopped without the approval of your doctor. In the event of worsening symptoms or concerns about side effects, contact your doctor immediately. 3. Utilize new healthy coping skills, anger management skills, and stress management skills learned during your hospitalization. Journal feelings and process them with a support person. Identify stressors or situations that may result in relapse, deterioration or inappropriate behaviors and develop a plan to deal with those issues. 4. If your coping skills are ineffective and you are in crisis, contact your outpatient providers for direction. If unable to reach your providers, please call the [facility] CRISIS LINE AT , go to the [facility] walk-in center at [address], [address], [place], or go to the closest Emergency Room. 5. Avoid alcohol and un-prescribed drugs. 6. You have been provided with the Mental Health Advance Directives Pamphlet for your review. 7. Your condition is stable for discharge to outpatient level of care, but recovery is an ongoing process. Ifthoughts to harm yourself or others return, follow the safety plan developed during your stay. Planning for a safe return home includes securing weapons. Our treatment team recommends weaponsbe removed from the home until your outpatient provider reassesses your progress. In rare cases where the items themselvescannot be removed, guns and ammunitionshould be secured separatelyand keys stored by a reliable personoutside of the home. If you were admitted on an involuntary commitment, the police or other legal authorities may be involved in this process. AFTERCARE APPOINTMENTS: * Please call your insurance company prior to your scheduled appointment to confirm your aftercare providers are covered. Take your insurance information to your appointments. WHO TO CALL AND WHEN: Medical Emergencies: For questions or emergencies related to your hospital stay, please contact the Inpatient Behavioral Health Unit at [phone]. A customer support assistant is on-call 29/09 for the Behavioral Health Unit for emergencies At any time you feel your situation is an emergency, you may also call 911 immediately. Pending Studies at Discharge: No Stand-Alone Forms: My [facility] Medications and DC Order Prescriptions: New losartan 50 mg Tablet 50 mg PO QAM 30 Days Qty: 30 RF: 1 metformin 500 mg Tablet Extended Release 24 Hr 1,000 mg PO DAILY 30 Days Qty: 60 RF: 1 (DME) OneTouch Verio test strips Strip See Rx Instructions .Route Qty: 50 RF: 0 (DME) lancets [OneTouch Delica Lancets] 33 gauge misc See Rx Instructions .Route Qty: 100 RF: 0 hydroxyzine HCl 50 mg tablet 50 mg PO HS PRN (Reason: insomnia) Qty: 30 RF: 0 fluoxetine 40 mg capsule 40 mg PO DAILY 30 Days Qty: 30 RF: 0 No Action No Known Home Medications RF: 0 Discharge Orders: Discharge Order (Routine); Ordered 08/16/21 Ordered By: Brenda Trinidad/Other Patient Handouts: Journaling for Mental Health, Controlling High Blood Pressure, Depression: Tips to Help Yourself, Exercise: Why Fitness Matters, Diabetes: Meal Planning, Blood Sugar Check Steps, Type 2 Diabetes Admission Data Admit Date/Time: 08/05/21 10:41 Attending Provider: Brenda Alanis Admit Provider: Brenda Alanis Primary Care Provider: PCP,NO Other Interventions: PSY Interdisciplinary Discharge Planning Last Done: 08/16/21 09:48 Coding Level of Care Code 56770 D/C day mgmt > 30 min Diagnoses Type II diabetes mellitus E11.9 Suicide attempt T14.91XA HTN (hypertension) I10 Social anxiety disorder F40.10 OMAR (generalized anxiety disorder) F41.1 MDD (major depressive disorder), recurrent episode, severe F33.2 Time Spent (min) 50
== END 2021-08-16 18:35 | disposition home or self-care (01) | DRG 885 ==
LOC: ED 06:18 → 3S 10:34 → SUATTDRO 10:41 → 3S 08-10 06:34

== ENCOUNTER 2023-01-31 15:01 | Inpatient (IN) ==
--- NOTE | 2023-01-31 15:21 | Emergency Department Note ---
Impression & Plan Seizure-like activity, Syncope and collapse, Elevated CK, Pulmonary edema ED Provider Note HISTORY OF PRESENT ILLNESS: Patient is a 37-year-old male presenting after syncopal episode and seizure-like activity. Patient reportedly was at the [employer] playing [employer] games when he suddenly fell to the ground and had tonic-clonic seizure activity. Per report, the seizure lasted about 2 minutes and broke on its own. He was postictal for about 8 more minutes and has since returned to his baseline neurological status. Patient has no prior history of seizures. Patient reports he remembers playing in the game and then woke up in the ambulance. He denies any chest pain, shortness of breath or lightheadedness while playing the game. He denies any recent changes in medication. Denies any recent head injury or chiropractic manipulation of his neck. Denies any recent fevers. Fingerstick glucose for EMS was 120. Patient has no complaints on arrival to the ER ROS: as above PHYSICAL EXAM: Constitutional: Patient appears in no acute distress. HENT: Head: Normocephalic and atraumatic. Eyes: EOMI, PERRL Mouth/Throat: Mucous membranes moist. Neck: Trachea midline. Neck supple. Cardiovascular: RRR, No murmurs, rubs or gallops. Intact distal pulses. Pulmonary/Chest: No respiratory distress. Breath sounds clear and equal bilaterally. No wheezes or rales. Abdominal: Abdomen soft, no tenderness, rebound or guarding. Musculoskeletal: No edema, tenderness or deformity noted. Skin: Warm. Patient appears diaphoretic Psychiatric: Appropriate mood and affect for situation. Neurological: Alert and keenly responsive. CN II-XII grossly intact, moving all extremities equally and fully. MDM: - Vitals signs showed hypertension. - History obtained via patient and EMS, given patient's amnesia to the event. Patient presents with syncopal episode and seizure-like activity. Patient reportedly was at the [employer] playing board games when he suddenly fell to the ground and had tonic-clonic seizure-like activity. The seizure lasted for 2 minutes and then broke on its own. He was postictal for about 10 more minutes and has since returned to baseline. No previous seizure-like activity. Denies any recent changes in medication. Denies any chest pain or shortness of breath prior to the episode. Denies any fevers - Chronic conditions affecting care: HTN - Differential diagnoses include, but are not limited to: ACS; PE; intracranial hemorrhage; hypoglycemia; electrolyte abnormality; dysrhythmia - Order placed for continuous cardiac monitoring. At this time, monitor showed rate of 90 bpm with normal sinus rhythm, per my interpretation. - External medical records reviewed. EMS run sheet was reviewed. Patient was vitally stable in route. Her medications were evaluated prehospital. - EKG reviewed by myself showed normal sinus rhythm. Rate 84 bpm. QTc 460. No acute ischemic changes - Laboratory workup interpreted by myself showed normal WBC; stable electrolytes; normal troponin; normal BNP; elevated dimer (1510); elevated CK (816) - UA negative for infection - UDS positive for amphetamines - CXR negative for pneumonia, per my interpretation - CT head wo contrast negative for acute intracranial pathology. - CT PE negative for PE, but radiology notes interseptal thickening concerning for pulmonary edema. - Patient was observed in the ER for 7 hours without any further seizure like activity. - Discussion was had with nurse wound care about patient's case and need for admission - Hospitalist consulted for admission - [facility] ASSESSMENT AND PLAN: Diagnosis: Seizure-like activity; syncope and collapse; elevated CK Plan: admit Past Med/Surg History Medical History (Updated 01/31/23 @ 22:25 by Supriya Ahn MD) Suicide attempt Suicidal behavior with attempted self-injury No pertinent past medical history Surgical History S/P appendectomy S/P wisdom tooth extraction Family History Father Prostate cancer Hypertension Diabetes Mother Myocardial infarction Denies family history of Ovarian cancer Breast cancer Colorectal cancer Social History Smoking Status: Never smoker Second Hand Exposure: No; Do You Dip or Chew Tobacco: No; Hx Alcohol Use: Yes Alcohol type: beer Alcohol Intake Frequency: 2-3 x/Week Hx Substance Use: No Preferred Language: Cape Verdean Communication Ability: Effective Visual Impairment: No Limitations Hearing Ability: Normal Dealership General Manager Required: No Beliefs That Will Affect Care: None marital status: Single Current Living Situation: Family current occupational status: unemployed Feels Safe at Home: Yes Childhood Exposure to Second-Hand Smoke: No Diet: diabetic Dental Care, Regularly: No Physical Activity Frequency: 5-6 Times per Week Seatbelt Use: always Sunscreen Use: Yes Assistive Devices: Glasses Allergies Allergies Allergy/AdvReac Type Severity Reaction Status Date / Time No Known Allergies Allergy Verified 10/15/22 10:23 Home Meds Home Medications Medication Instructions Recorded Confirmed fluoxetine 40 mg capsule 80 mg PO QAM 10/07/21 01/31/23 [id number] acid 400 1 tab PO DAILY 10/07/21 01/31/23 mcg-vit K 20 mcg-lycop 300 mcg tablet (One-A-Day Men's Multivitamin) Vitamin D3 2 gummy PO QAM PRN Other 01/31/23 01/31/23 bupropion HCl 200 mg tablet,12 hr 200 mg PO QAM 01/31/23 01/31/23 sustained-release hydroxyzine HCl 50 mg tablet 50 mg PO HS insomnia 01/31/23 01/31/23 Previous Rx's Medication Instructions Recorded lancets 33 gauge (YkoneTouch Delica #100 ea 08/16/21 Lancets) blood sugar diagnostic (YkoneTouch #100 ea 01/10/22 Verio test strips) Results & Data (ED) Vital Signs Vital Signs - 24 hr 01/31/23 15:26 01/31/23 15:26 01/31/23 15:26 Temperature 36.4 C L 36.4 C L Temperature Source Oral Oral Pulse Rate - Lying Pulse Rate - Sitting Pulse Rate - Standing Pulse Rate 88 Pulse Rate [Apical] Pulse Rhythm Regular Pulse Strength Normal Respiratory Rate 16 16 Respiratory Effort / Characteristics Non-Labored Spontaneous Non-Labored Spontaneous Respiratory Depth Normal Normal Respiratory Pattern Regular Regular Blood Pressure - Lying Blood Pressure - Sitting Blood Pressure- Standing Blood Pressure 143/89 H Blood Pressure [Right Arm] Blood Pressure Mean 107 Blood Pressure Mean [Right Arm] Blood Pressure Position Semi-fowlers Pulse Oximetry 94 94 94 Oxygen Delivery Method Room Air Room Air Room Air Sepsis Recent Fever Within 48 Hours No Sepsis New/Unexplained Change in Mental Status Yes Sepsis Action Taken by Nursing No Action Required 01/31/23 15:39 01/31/23 17:20 01/31/23 18:57 Temperature Temperature Source Pulse Rate - Lying 85 Pulse Rate - Sitting 90 Pulse Rate - Standing 102 H Pulse Rate 86 Pulse Rate [Apical] 86 Pulse Rhythm Pulse Strength Respiratory Rate 18 Respiratory Effort / Characteristics Respiratory Depth Respiratory Pattern Blood Pressure - Lying 153/102 H Blood Pressure - Sitting 163/104 H Blood Pressure- Standing 153/100 H Blood Pressure Blood Pressure [Right Arm] 151/108 H Blood Pressure Mean Blood Pressure Mean [Right Arm] 122 Blood Pressure Position Pulse Oximetry 99 Oxygen Delivery Method Room Air Sepsis Recent Fever Within 48 Hours Sepsis New/Unexplained Change in Mental Status Sepsis Action Taken by Nursing 01/31/23 19:25 01/31/23 20:32 Temperature Temperature Source Pulse Rate - Lying Pulse Rate - Sitting Pulse Rate - Standing Pulse Rate 81 Pulse Rate [Apical] 90 Pulse Rhythm Pulse Strength Respiratory Rate 19 Respiratory Effort / Characteristics Respiratory Depth Respiratory Pattern Blood Pressure - Lying Blood Pressure - Sitting Blood Pressure- Standing Blood Pressure Blood Pressure [Right Arm] 151/96 H Blood Pressure Mean Blood Pressure Mean [Right Arm] 114 Blood Pressure Position Pulse Oximetry 96 Oxygen Delivery Method Room Air Sepsis Recent Fever Within 48 Hours Sepsis New/Unexplained Change in Mental Status Sepsis Action Taken by Nursing Laboratory Data 01/31/23 15:23 01/31/23 15:23 Lab Results 01/31/23 01/31/23 01/31/23 Range/Units 15:17 15:23 16:05 WBC 5.86 (4.8-10.8) K/ul RBC 5.37 (4.70-6.10) M/uL Hgb 15.3 (14.0-18.0) g/dl Hct 44.1 (42.0-52.0) % MCV 82.1 (80.0-100.0) fL MCH 28.5 (25.0-34.0) pg MCHC 34.7 (32.0-36.0) g/dL RDW Std Deviation 39.4 (36.4-46.3) fL RDW Coeff of Nany 13.2 (11.5-14.5) % Plt Count 226 (130-400) K/uL MPV 8.9 L (9.4-12.4) fL Immature Gran % (Auto) 0.2 % Neut % (Auto) 63.4 % Lymph % (Auto) 26.6 % [place] % (Auto) 8.0 % Eos % (Auto) 1.5 % Baso % (Auto) 0.3 % Neut # (Auto) 3.71 (1.40-6.50) K/uL Lymph # (Auto) 1.56 (1.20-3.40) K/uL [place] # (Auto) 0.47 (0.11-0.59) K/uL Eos # (Auto) 0.09 (0.00-0.50) K/uL Baso # (Auto) 0.02 (0.00-0.20) K/uL Immature Gran # (Auto) 0.01 (0.01-0.20) K/uL D-Dimer 1510 H* (0-500) ug/L FEU Sodium 139 (136-145) mmol/L Potassium 3.5 (3.5-5.1) mmol/L Chloride 104 (98-107) mmol/L Carbon Dioxide 25 (21-32) mmol/L Anion Gap 10 (3-11) BUN 13 (6-23) mg/dl Creatinine 0.76 (0.6-1.4) mg/dl Est Cr Clr Drug Dosing Not Reportable Est GFR ( Amer) 134.1 ml/min Est GFR (Non-Af Amer) 115.7 ml/min BUN/Creatinine Ratio 17.1 (10-20) Glucose 134 H (70-99(Fasting)) mg/dl POC Glucose 147 H (70-99) mg/dl Lactate 1.5 (0.4-2.0) mmol/L Calcium 9.9 (8.6-10.3) mg/dl Magnesium 1.8 (1.7-2.4) mg/dl Total Bilirubin 0.7 (0.2-1.0) mg/dl AST 34 (13-39) U/L ALT 33 (7-52) U/L Alkaline Phosphatase 49 (34-104) U/L Total Creatine Kinase 816 H (30-223) U/L Troponin I High Sens 3.0 (0-20) pg/ml B-Natriuretic Peptide (0-100) pg/ml Total Protein 7.3 (6.0-8.3) gm/dl Albumin 4.5 (3.4-5.0) gm/dl Globulin 2.8 (2.5-4.0) gm/dl Albumin/Globulin Ratio 1.6 (0.9-2) Urine Color Urine Appearance (Clear) Urine pH (4.5-7.5) Ur Specific [place] (1.000-1.030) Urine Protein (Negative) Urine Glucose (UA) (Negative) Urine Ketones (Negative) Urine Blood (Negative) Urine Nitrite (Negative) Urine Bilirubin (Negative) Urine Urobilinogen (Negative) Ur Leukocyte Esterase (Negative) Urine WBC (Auto) (0-5) /hpf Urine RBC (Auto) (0-4) /hpf U Hyaline Cast (Auto) (0-5) /lpf U Epithel Cells (Auto) (0-5) /lpf Urine Bacteria (Auto) (Negative) Ur Renal Epithelial Cell Amorphous Sediment (None Prsent) Urine Opiates Screen (Neg) Ur Methadone, Qual (Neg) Urine Barbiturates (Neg) Ur Phencyclidine (PCP) (Neg) U Amphetamin/Meth Scrn (Neg) MDMA (Ecstasy) Screen (Neg) U Benzodiazepines Scrn (Neg) Ur Cocaine Metabolite (Neg) U Marijuana (THC) Screen (Neg) 01/31/23 01/31/23 Range/Units 21:16 Unknown WBC (4.8-10.8) K/ul RBC (4.70-6.10) M/uL Hgb (14.0-18.0) g/dl Hct (42.0-52.0) % MCV (80.0-100.0) fL MCH (25.0-34.0) pg MCHC (32.0-36.0) g/dL RDW Std Deviation (36.4-46.3) fL RDW Coeff of Nany (11.5-14.5) % Plt Count (130-400) K/uL MPV (9.4-12.4) fL Immature Gran % (Auto) % Neut % (Auto) % Lymph % (Auto) % [place] % (Auto) % Eos % (Auto) % Baso % (Auto) % Neut # (Auto) (1.40-6.50) K/uL Lymph # (Auto) (1.20-3.40) K/uL [place] # (Auto) (0.11-0.59) K/uL Eos # (Auto) (0.00-0.50) K/uL Baso # (Auto) (0.00-0.20) K/uL Immature Gran # (Auto) (0.01-0.20) K/uL D-Dimer (0-500) ug/L FEU Sodium (136-145) mmol/L Potassium (3.5-5.1) mmol/L Chloride (98-107) mmol/L Carbon Dioxide (21-32) mmol/L Anion Gap (3-11) BUN (6-23) mg/dl Creatinine (0.6-1.4) mg/dl Est Cr Clr Drug Dosing Est GFR ( Amer) ml/min Est GFR (Non-Af Amer) ml/min BUN/Creatinine Ratio (10-20) Glucose (70-99(Fasting)) mg/dl POC Glucose (70-99) mg/dl Lactate (0.4-2.0) mmol/L Calcium (8.6-10.3) mg/dl Magnesium (1.7-2.4) mg/dl Total Bilirubin (0.2-1.0) mg/dl AST (13-39) U/L ALT (7-52) U/L Alkaline Phosphatase (34-104) U/L Total Creatine Kinase (30-223) U/L Troponin I High Sens (0-20) pg/ml B-Natriuretic Peptide 18 (0-100) pg/ml Total Protein (6.0-8.3) gm/dl Albumin (3.4-5.0) gm/dl Globulin (2.5-4.0) gm/dl Albumin/Globulin Ratio (0.9-2) Urine Color Yellow Urine Appearance Turbid A (Clear) Urine pH 8.5 H (4.5-7.5) Ur Specific [place] 1.019 (1.000-1.030) Urine Protein Trace H (Negative) Urine Glucose (UA) Negative (Negative) Urine Ketones Negative (Negative) Urine Blood Negative (Negative) Urine Nitrite Negative (Negative) Urine Bilirubin Negative (Negative) Urine Urobilinogen Negative (Negative) Ur Leukocyte Esterase Negative (Negative) Urine WBC (Auto) 1-5 (0-5) /hpf Urine RBC (Auto) 5-10 H (0-4) /hpf U Hyaline Cast (Auto) 1-5 (0-5) /lpf U Epithel Cells (Auto) >30 H (0-5) /lpf Urine Bacteria (Auto) Negative (Negative) Ur Renal Epithelial Cell Not Reportable Amorphous Sediment Present A (None Prsent) Urine Opiates Screen Neg (Neg) Ur Methadone, Qual Neg (Neg) Urine Barbiturates Neg (Neg) Ur Phencyclidine (PCP) Neg (Neg) U Amphetamin/Meth Scrn Neg (Neg) MDMA (Ecstasy) Screen Pos H (Neg) U Benzodiazepines Scrn Neg (Neg) Ur Cocaine Metabolite Neg (Neg) U Marijuana (THC) Screen Neg (Neg) Administered Medications Discontinued Medications Sodium Chloride (Nss) 1,000 mls @ 999 mls/hr IV .Q1H1M AUTUMN Stop: 01/31/23 16:30 Last Infusion: 01/31/23 17:29 Dose: Infused Documented By: Admin: 01/31/23 16:40 Dose: 999 mls/hr Documented By: TRISTA Ioversol (Optiray 320 125ml) 119 ml IV ONCE ONE Stop: 01/31/23 19:31 Last Admin: 01/31/23 19:30 Dose: 119 ml Documented By: LUIS Imaging Data Radiologist's Impression: Head CT 01/31/23 15:[address] DOSE: 625.8 mGy.cm HISTORY: seizure TECHNIQUE: Multiaxial CT images of the head were performed without the use of intravenous contrast. Automated exposure control was utilized for this study. A dose lowering technique was utilized adhering to the principles of ALARA. Comparison: None. Findings: The paranasal sinuses and mastoid air cells are clear. The calvarium and skull base are intact. The ventricles and sulci are within normal limits. There is no mass, hematoma, midline shift, or acute infarct. Impression: No acute intracranial abnormality. ACT 112: Negative or not required by law. Electronically signed by: Manoj Carmen M.D. 01/31/2023 4:14 PM Chest X-Ray 01/31/23 17:22 XR chest 1V portable HISTORY: seizure COMPARISON: None. FINDINGS: No pneumothorax. No pleural effusions. There are low lung volumes. No focal lung consolidations to suggest a pneumonia. No evidence for pulmonary edema. The cardiac silhouette is mildly enlarged. IMPRESSION: Mild cardiomegaly. Otherwise, no acute process within the chest. ACT 112: Negative or not required by law. Electronically signed by: Manoj Carmen M.D. 01/31/2023 6:35 PM Chest CTA 01/31/23 19:18 Exam(s): CTA CHEST IV Amt: 119 ml optiray 320 EXAM: CT Angiography Chest With Intravenous Contrast CLINICAL HISTORY: Pulmonary embolus. TECHNIQUE: Axial computed tomographic angiography images of the chest with intravenous contrast. CTDI is 28.5 mGy and DLP is 796.24 mGy-cm. Automated exposure control was utilized for the study. A dose lowering technique was utilized adhering to the principles of ALARA. MIP reconstructed images were created and reviewed. COMPARISON: No relevant prior studies available. FINDINGS: Pulmonary arteries: Unremarkable. No pulmonary embolus. Aorta: No acute findings. No thoracic aortic aneurysm. Lungs: Interseptal thickening is concerning for pulmonary edema. No mass. Pleural space: Unremarkable. No significant effusion. No pneumothorax. Heart: Unremarkable. No cardiomegaly. No significant pericardial effusion. No evidence of RV dysfunction. Bones/joints: There are degenerative changes of the spine. No acute fracture. No dislocation. Soft tissues: Unremarkable. Lymph nodes: Unremarkable. No enlarged lymph nodes. IMPRESSION: 1. No pulmonary embolus. 2. Interseptal thickening is concerning for pulmonary edema. Electronically signed by: Bianca Lewis MD 01/31/23 21:06 PM Discharge Plan Visit Data Chief Complaint: Syncope Stated Complaint: SYNCOPE, POSSIBLE SEIZURE ED Provider: Supriya Ahn Discharge Problem: Seizure-like activity, Syncope and collapse, Elevated CK, Pulmonary edema Forms Stand Alone Forms: [employer] Prescriptions Prescriptions: No Action (DME) OneTouch Verio test strips Strip See Rx Instructions .Route Qty: 100 1RF Rx Instructions: Once per day fluoxetine 40 mg capsule 80 mg PO QAM One-A-Day Men's Multivitamin 400-20-300 mcg tablet 1 tab PO DAILY (DME) lancets [OneTouch Delica Lancets] 33 gauge misc See Rx Instructions .Route Qty: 100 0RF Rx Instructions: once per day bupropion HCl 200 mg tablet sustained-release 12 hr 200 mg PO QAM Vitamin D3 2 gummy PO QAM PRN (Reason: Other) Rx Instructions: uses during winter months hydroxyzine HCl 50 mg tablet 50 mg PO HS Referrals Referrals: Tashi Bain, [Primary Care Provider] -
[2023-01-31] MEDS ORDERED: SODIUM CHLORIDE 0.9% 1,000 ML IV SCH (15:30)
[2023-01-31 15:47] LABS: Basophils # (auto) 0.02 K/uL (0.00-0.20); Basophils % (auto) 0.3 %; Eosinophils # (auto) 0.09 K/uL (0.00-0.50); Eosinophils % (auto) 1.5 %; Hematocrit (blood only) 44.1 % (42.0-52.0); Hemoglobin 15.3 g/dl (14.0-18.0); Immature Granulocytes # (auto) 0.01 K/uL (0.01-0.20); Immature Granulocytes % (auto) 0.2 %; Lymphocytes # (auto) 1.56 K/uL (1.20-3.40); Lymphocytes % (auto) 26.6 %; Mean Corpuscular Hemoglobin 28.5 pg (25.0-34.0); Mean Corpuscular Hgb Conc 34.7 g/dL (32.0-36.0); Mean Corpuscular Volume 82.1 fL (80.0-100.0); Mean Platelet Volume 8.9 fL (9.4-12.4); Monocytes # (auto) 0.47 K/uL (0.11-0.59); Neutrophils # (auto) 3.71 K/uL (1.40-6.50); Neutrophils % (auto) 63.4 %; Platelet Count 226 K/uL (130-400); RDW Coefficient of Variation 13.2 % (11.5-14.5); RDW Standard Deviation 39.4 fL (36.4-46.3); Red Blood Count 5.37 M/uL (4.70-6.10); White Blood Count 5.86 K/ul (4.8-10.8)
[2023-01-31 16:01] LABS: Alanine Aminotransferase 33 U/L (7-52); Albumin Globulin Ratio 1.6 (0.9-2); Albumin Level 4.5 gm/dl (3.4-5.0); Alkaline Phosphatase 49 U/L (34-104); Anion Gap 10 (3-11); Aspartate Aminotransferase 34 U/L (13-39); BUN Creatinine Ratio 17.1 (10-20); Bilirubin,Total 0.7 mg/dl (0.2-1.0); Blood Urea Nitrogen 13 mg/dl (6-23); Calcium 9.9 mg/dl (8.6-10.3); Carbon Dioxide 25 mmol/L (21-32); Chloride 104 mmol/L (98-107); Creatine Kinase 816 U/L (30-223); Est GFR (African American) 134.1 ml/min; Est GFR (Non-African American) 115.7 ml/min; Globulin 2.8 gm/dl (2.5-4.0); Glucose 134 mg/dl (70-99(Fasting)); Magnesium 1.8 mg/dl (1.7-2.4); Potassium 3.5 mmol/L (3.5-5.1); Sodium 139 mmol/L (136-145); Total Protein 7.3 gm/dl (6.0-8.3)
--- NOTE | 2023-01-31 16:16 | CT Scan Report ---
HEAD CT NONCONTRAST CT DOSE: 625.8 mGy.cm HISTORY: seizure TECHNIQUE: Multiaxial CT images of the head were performed without the use of intravenous contrast. A utomated exposure control was utilized for this study. A dose lowering technique was utilized adheri ng to the principles of ALARA. Comparison: None. Findings: The paranasal sinuses and mastoid air cells are clear. The calvarium and skull base are int act. The ventricles and sulci are within normal limits. There is no mass, hematoma, midline shift, or acute infarct. Impression: No acute intracranial abnormality. ACT 112: Negative or not required by law. Electronically signed by: Manoj Carmen M.D. 01/31/2023 4:14 PM
[2023-01-31 18:28] LABS: Appearance Urine Turbid (Clear); Bacteria Urine Automated Negative (Negative); Bilirubin Urine Negative (Negative); Blood Urine Negative (Negative); Color Urine Yellow; Epithelial Cell Urine Auto >30 /lpf (0-5); Glucose Urine UA Negative (Negative); Ketones Urine Negative (Negative); Leukocyte Esterase Urine Negative (Negative); Nitrite Urine Negative (Negative); Specific Gravity Urine 1.019 (1.000-1.030); Urobilinogen Urine Negative (Negative); pH Urine 8.5 (4.5-7.5)
[2023-01-31 18:30] LABS: Protein Urine Trace (Negative)
--- NOTE | 2023-01-31 18:36 | XRay Report ---
XR chest 1V portable HISTORY: seizure COMPARISON: None. FINDINGS: No pneumothorax. No pleural effusions. There are low lung volumes. No focal lung consolidat ions to suggest a pneumonia. No evidence for pulmonary edema. The cardiac silhouette is mildly enlarg ed. IMPRESSION: Mild cardiomegaly. Otherwise, no acute process within the chest. ACT 112: Negative or not required by law. Electronically signed by: Manoj Carmen M.D. 01/31/2023 6:35 PM
[2023-01-31 18:38] LABS: Amorphous Sediment Urine Present (None Prsent)
[2023-01-31 18:53] LABS: Amphetamines+Metham, Urine Neg (Neg); Barbiturates, Urine Neg (Neg); Benzodiazepine, Urine Neg (Neg); Cocaine, Urine Neg (Neg); MDMA (Ecstacy), Urine Pos (Neg); Marijuana, Urine Neg (Neg); Methadone, Urine Neg (Neg); Opiate, Urine Neg (Neg); Phencyclidine, Urine Neg (Neg)
[2023-01-31 19:17] LABS: D Dimer 1510 ug/L FEU (0-500)
[2023-01-31] MEDS ORDERED: OPTIRAY 320 125ml IV ONE (19:30)
--- NOTE | 2023-01-31 21:07 | CT Scan Report ---
Exam(s): CTA CHEST IV Amt: 119 ml optiray 320 EXAM: CT Angiography Chest With Intravenous Contrast CLINICAL HISTORY: Pulmonary embolus. TECHNIQUE: Axial computed tomographic angiography images of the chest with intravenous contrast. CTDI is 28.5 mGy and DLP is 796.24 mGy-cm. Automated exposure control was utilized for the study. A dose lowering technique was utilized adhering to the principles of ALARA. MIP reconstructed images were created and reviewed. COMPARISON: No relevant prior studies available. FINDINGS: Pulmonary arteries: Unremarkable. No pulmonary embolus. Aorta: No acute findings. No thoracic aortic aneurysm. Lungs: Interseptal thickening is concerning for pulmonary edema. No mass. Pleural space: Unremarkable. No significant effusion. No pneumothorax. Heart: Unremarkable. No cardiomegaly. No significant pericardial effusion. No evidence of RV dysfunction. Bones/joints: There are degenerative changes of the spine. No acute fracture. No dislocation. Soft tissues: Unremarkable. Lymph nodes: Unremarkable. No enlarged lymph nodes. IMPRESSION: 1. No pulmonary embolus. 2. Interseptal thickening is concerning for pulmonary edema. Electronically signed by: Bianca Lewis MD 01/31/23 21:06 PM
--- NOTE | 2023-01-31 23:14 | History & Physical Report ---
Date of Service January 31, 2023 Assessment & Plan (1) Seizure-like activity: Plan: 37 year old male admitted for seizure like activity. -2 minute tonic-clonic activity earlier in the evening followed by post-ictal state, patient back to normal baseline. -CT head unremarkable. -blood work unremarkable except for elevated D-dimer and CK which would go along with seizure activity. -CTA negative for PE. -No prior history seizure or syncope, new onset may be related to bupropion use. -Will D/C bupropion, patient will need to discuss with psychiatry alternatives for medication. -EEG, MRI ordered. Consulted Neurology, appreciate recommendations. -Seizure precautions. -Admit to telemetry. (2) MDD (major depressive disorder), recurrent episode, severe: Plan: -Hold bupropion in the face of possible seizure. -Continue fluoxetine 80mg daily. (3) OMAR (generalized anxiety disorder): Plan: -Same plan as above. (4) HTN (hypertension): Plan: -Chronic, no anti-hypertensives on medication list at this time. Continue to monitor. (5) Type II diabetes mellitus: Plan: -A1c 5.2 in July, had been 8.9 in 2021. -26 units lantus BID by weight while inpatient. ACHS checks. -Can add sliding scale insulin on if BSG not well controlled. (6) Elevated CK: Plan: -Likely secondary to seizure like activity. Given 1L NSS in the ER. (7) Pulmonary edema: Plan: -CTA noted pulmonary edema. Likely secondary to seizure like activity. No respiratory distress, vitals stable, lung exam clear. Plan F/E/N/GI: Regular diet. DVT: SCD Code: Full Dispo: telemetry History of Present Illness Chief Complaint: Syncopal episode Primary Care Provider: DO Sukumar Jeffrey is a 37 year old male w/ PmHx OMAR, HTN, A/D w/ social anxiety, T2DM brought in by EMS for an episode of passing out possible seizure. Patient states that he was in the library playing board games like he usually does on the weekends from 10-4 earlier today. He remembers playing board games without any issue and then the next thing he knows he woke up sweaty and in an ambulance. Per ER physician it was reported that he had fell to the ground with tonic-clonic seizure-like activity which lasted around 2 minutes along with 8 minutes of post-ictal state. Patient states that the only thing he can think of that may have contributed to this was getting really into the board games and not drinking or eating very much the whole day. He states that he has no past history of seizures in adulthood or when he was an , mother confirms this in the room. No history of syncopal episodes either. He is on bupropion for anxiety/depression and takes this daily. He denies any fevers, chills, shortness of breath, chest pain, diarrhea, constipation, urinary symptoms, recent trauma. Denies any smoking or tobacco use, only has around 1 beer once a week, no recreational drug use. In the ER CBC unremarkable, D-dimer 1510, CK 816, CMP unremarkable. U/A with trace protein, 5-[address] head unremarkable, CTA chest no pulmonary embolism, interseptal thickening concerning for pulmonary edema. Urine drug screen positive for MDMA however this may be caused by bupoprion patient is on. Allergies Allergy/AdvReac Type Severity Reaction Status Date / Time No Known Allergies Allergy Verified 10/15/22 10:23 Home Medications Medication Instructions Recorded Confirmed Type lancets 33 gauge ([employer] Delica #100 ea 08/16/21 10/15/22 Rx Lancets) fluoxetine 40 mg capsule 80 mg PO QAM 10/07/21 01/31/23 History zmzdzbvq-rrwyteux-zomes acid 400 1 tab PO DAILY 10/07/21 01/31/23 History mcg-vit K 20 mcg-lycop 300 mcg tablet (One-A-Day Men's Multivitamin) blood sugar diagnostic ([employer] #100 ea 01/10/22 10/15/22 Rx Verio test strips) Vitamin D3 2 gummy PO QAM PRN Other 01/31/23 01/31/23 History bupropion HCl 200 mg tablet,12 hr 200 mg PO QAM 01/31/23 01/31/23 History sustained-release hydroxyzine HCl 50 mg tablet 50 mg PO HS insomnia 01/31/23 01/31/23 History Past Med/Surg History Medical History Suicide attempt Suicidal behavior with attempted self-injury No pertinent past medical history Surgical History S/P appendectomy S/P wisdom tooth extraction Family History Father Prostate cancer Hypertension Diabetes Mother Myocardial infarction Denies family history of Ovarian cancer Breast cancer Colorectal cancer Social History Smoking Status: Never smoker Second Hand Exposure: No; Do You Dip or Chew Tobacco: No; Hx Alcohol Use: Yes Alcohol type: beer Alcohol Intake Frequency: 2-3 x/Week Hx Substance Use: No Preferred Language: Arabic Communication Ability: Effective Visual Impairment: No Limitations Hearing Ability: Normal Bird Raiser Required: No Beliefs That Will Affect Care: None marital status: Single Current Living Situation: Alone and Parent current occupational status: unemployed Feels Safe at Home: Yes Childhood Exposure to Second-Hand Smoke: No Diet: diabetic Dental Care, Regularly: No Physical Activity Frequency: 5-6 Times per Week Seatbelt Use: always Sunscreen Use: Yes Assistive Devices: None Review of Systems Review of Systems: As per HPI. Physical Exam Constitutional: WD/WN, vitals as above Eyes: PERRL, conjunctivae normal, anicteric sclerae Neck: trachea midline, no thyromegaly Respiratory: normal respiratory effort, lungs clear to auscultation Cardiovascular: RRR, no murmur, no edema Chest (Breasts): normal inspection/palpation of breasts Gastrointestinal (Abdomen): normal bowel sounds, soft, nontender, no hepatosplenomegaly Skin: no rashes, warm and dry Neurologic: PERRL, EOMI, accommodation nl, no face palsy, no dysarthria No nystagmus or saccades at time of exam. Psychiatric: A+Ox3, euthymic affect Results & Data Results & Data Vital Signs (Past 12 Hours) Vital Signs Temp Pulse Pulse Resp BP BP Pulse Ox 01/31/23 20:32 90 19 151/96 H 96 01/31/23 19:25 81 01/31/23 17:20 86 18 151/108 H 99 01/31/23 15:39 86 01/31/23 15:26 36.4 C L 16 94 01/31/23 15:26 94 01/31/23 15:26 36.4 C L 88 16 143/89 H 94 O2 Del Method 01/31/23 20:32 Room Air 01/31/23 19:25 01/31/23 17:20 Room Air 01/31/23 15:39 01/31/23 15:26 Room Air 01/31/23 15:26 Room Air 01/31/23 15:26 Room Air Supervising Physician Co-Signing Physician Notes Attending addendum: I have physically seen this patient, have supervised the medical residents activities, and agree with the H&P unless as otherwise noted. Assessment and Plan: Seizure-like activity- CT head unremarkable CTA negative for PE Discontinue bupropion Order MRI brain with seizure protocol Order EEG The patient will be admitted to telemetry for serial cardiac enzymes, serial EKG's, cardiac rhythm monitoring and a 2-D echocardiogram with Dopplers. Consult neurology MDD/OMAR- Holding bupropion as noted Continue fluoxetine 80 mg daily Continue hydroxyzine 50 mg at bedtime as needed Diabetes mellitus- Lantus 26 units subcu twice daily Placed on Accu-Cheks with NovoLog SSI Check hemoglobin A1c Remaining orders and notations as noted Resident Activity Tracking Resident Involvement: Resident Care Provided Care Provided: Adult Hospital Medicine
[2023-02-01] MEDS ORDERED: ONDANSETRON INJ 2 MG/ML 2 ML VIAL IV PRN (00:39)
[2023-02-01] MEDS ORDERED: ACETAMINOPHEN 325 MG TAB PO PRN (00:39)
[2023-02-01] MEDS ORDERED: GLUCOSE 40% GEL 15 GM TUBE PO PRN (00:39)
[2023-02-01] MEDS ORDERED: POLYETHYLENE (MIRALAX) 17 GM PACK PO PRN (00:39)
[2023-02-01] MEDS ORDERED: CARBOHYDRATES FOR HYPOGLYCEMIA PO PRN (00:39)
[2023-02-01] MEDS ORDERED: GLUCOSE 10 TAB/TUBE PO PRN (00:39)
[2023-02-01] MEDS ORDERED: DEXTROSE 50% 50 ML SYRINGE IV PRN (00:39)
[2023-02-01] MEDS ORDERED: GLUCAGON FOR INJ 1 MG VIAL SQ PRN (00:39)
--- NOTE | 2023-02-01 07:59 | Electrocardiogram Report ---
Test Reason : Blood Pressure : / mmHG Vent. Rate : 084 BPM Atrial Rate : 084 BPM P-R Int : 190 ms QRS Dur : 102 ms QT Int : 390 ms P-R-T Axes : 016 -01 016 degrees QTc Int : 460 ms Normal sinus rhythm Normal ECG When compared with ECG of 05-AUG-2021 07:24, No significant change was found Confirmed by Wiley Gonzalez ([id number]) on 02/01/2023 7:59:08 AM Referred By: REFERRED SELF Confirmed By:Wiley Gonzalez
--- NOTE | 2023-02-01 09:11 | Neurology Consultation ---
Date of Consultation February 01, 2023 Assessment & Plan (1) Seizure-like activity: (2) OMAR (generalized anxiety disorder): (3) MDD (major depressive disorder), recurrent episode, severe: Plan This patient had new onset seizure activity January 31, consisting of some generalized tonic-clonic activity. Currently he is asymptomatic, back to baseline. There are no focal neurologic findings, meningeal signs, or encephalopathy. The elevated CK can be seen with a generalized tonic-clonic seizure. He only had 1 event and the etiology is not certain. However, he recently increased his bupropion to 200 mg a day 1 month ago. This can lead to seizures. On rare occasion, fluoxetine can be associated with seizures to but he has been on the same (albeit relatively high) dose for almost a year. He has major depressive disorder and generalized anxiety disorder which are stable on current medication. Recommendations: 1. MRI of the brain with and without contrast 2. EEG has been ordered 3. Agree with holding bupropion for now and maintaining fluoxetine. 4. I see no reason for initiating an anticonvulsant at this time, but will make final recommendations after the above test and his clinical course 5. We can follow-up in Neurology in 2-3 weeks with the PA after discharge. No driving until we see him in clinic. History of Present Illness Reason for Consultation: Patient is a 37-year-old, who was asked to see at the request of Dr. Avendaño, for neurologic evaluation regarding new onset seizure Requesting Physician: Dr. Avendaño Attending Physician: Marvel Irby MD History of Present Illness This patient has a history of type 2 diabetes hypertension on no regular medication. He does have a chronic significant mood disorder with major depressive disorder and generalized anxiety disorder. He was hospitalized for this in August of 2021. About a year ago he was increased from fluoxetine 40 mg a day to 80 mg a day. This made a big difference. He was on bupropion 100 mg a day and, 1 month ago, was increased to 200 mg daily. The patient has no history of seizure disorder, head trauma, or meningitis. There is no family history of seizure disorder. The patient was in his usual state of very good health when January 31 in the afternoon he went to the [employer] to meet with people to play board games. Somewhere between 2 and 3:00 p.m. he had the sudden onset (no warning) of collapse with tonic-clonic seizure activity lasting a couple of minutes. He was confused for about 8 minutes or so thereafter and then mental status was back to baseline. There was no tongue biting or incontinence. He does not remember the event but remembers waking up in the ambulance. By the time he got to the emergency room his mental status was quite clear. He had no further seizure events since. He tells me he may not of had much to eat or drink for hours prior to this event (which is not typical for him). He arrived at the emergency room at 3:26 p.m. with a temperature of 36.4, pulse 88 and regular, respiratory rate 16, blood pressure 143/89, O2 saturation 94%. Neurologic examination was described as unremarkable/normal. CBC and Chem profile were unremarkable. Urinalysis was unremarkable as well. CK was elevated at 816. Glucose was 134 and D-dimer was elevated at 1510. CT scan of the head was unremarkable. Chest x-ray was remarkable for some mild cardiomegaly. CT angiography of the chest was unremarkable. The patient had no further events since and feels back to normal today. Allergies Allergy/AdvReac Type Severity Reaction Status Date / Time No Known Allergies Allergy Verified 10/15/22 10:23 Home Medications Medication Instructions Recorded Confirmed Type lancets 33 gauge ([employer] Delica #100 ea 08/16/21 10/15/22 Rx Lancets) fluoxetine 40 mg capsule 80 mg PO QAM 10/07/21 01/31/23 History qklouwjs-mkoemitb-rdzxo acid 400 1 tab PO DAILY 10/07/21 01/31/23 History mcg-vit K 20 mcg-lycop 300 mcg tablet (One-A-Day Men's Multivitamin) blood sugar diagnostic ([employer] #100 ea 01/10/22 10/15/22 Rx Verio test strips) Vitamin D3 2 gummy PO QAM PRN Other 01/31/23 01/31/23 History bupropion HCl 200 mg tablet,12 hr 200 mg PO QAM 01/31/23 01/31/23 History sustained-release hydroxyzine HCl 50 mg tablet 50 mg PO HS insomnia 01/31/23 01/31/23 History Patient History Medical History Suicide attempt Suicidal behavior with attempted self-injury No pertinent past medical history Surgical History S/P appendectomy S/P wisdom tooth extraction Family History Father Prostate cancer Hypertension Diabetes Mother Myocardial infarction Denies family history of Ovarian cancer Breast cancer Colorectal cancer Social History Smoking Status: Never smoker Second Hand Exposure: No; Do You Dip or Chew Tobacco: No; Hx Alcohol Use: Yes Alcohol type: beer Alcohol Intake Frequency: 2-3 x/Week Hx Substance Use: No Preferred Language: Thai Communication Ability: Effective Visual Impairment: No Limitations Hearing Ability: Normal Processing Rep Required: No Beliefs That Will Affect Care: None marital status: Single Current Living Situation: Alone and Parent current occupational status: unemployed Feels Safe at Home: Yes Childhood Exposure to Second-Hand Smoke: No Diet: diabetic Dental Care, Regularly: No Physical Activity Frequency: 5-6 Times per Week Seatbelt Use: always Sunscreen Use: Yes Assistive Devices: Glasses Review of Systems Constitutional: no fever, no fatigue and no weakness Eyes: no diplopia, no eye pain and no worsening vision Ear, Nose, Mouth, Throat: no ear pain, no tinnitus, no hearing loss, no dizziness, no snoring, no hoarseness and no dysphagia Respiratory: no cough and no dyspnea Cardiovascular: no chest pain, no palpitations and no lightheadedness Gastrointestinal: no abdominal pain, no nausea and no vomiting Musculoskeletal: no back pain, no neck pain, no radicular pain, no joint pain and no myalgia Integumentary: no rash and no lesions Neurologic: no gait abnormality, no localized weakness, no generalized weakness, no tingling, no numbness, no tremor(s), no abnormal movements, no headache(s), no abnormal speech, no confusion and no memory loss Psychiatric: no depression, no irritability, no anxiety, no difficulty concentrating, no confusion and no hallucinations Endocrine: no fatigue and no flushing Hematologic / Lymphatic: no easy bleeding and no easy bruising Allergy / Immunological: no urticaria and no problem reported Exam (Neuro) Physical Exam: The patient is right-handed. The patient is awake, alert, and attentive. Speech is normal without any aphasia or dysarthria. The patient can name objects, repeat phrases, and has normal spontaneous speech. Mentation and thought processes are intact, with orientat ion to person, place and time, and normal fund of knowledge. Attention and concentration are normal. Mood and affect are normal and appropriate. General appearance and grooming are normal. Short and long-term memory are intact. Pupils are 4 mm bilaterally and reactive to light. Extraocular eye muscles are intact without nystagmus. Visual acuity and visual du seem normal grossly to confrontation. There are no deficits to sensation in the face in all 3 distributions of the fifth cranial nerve bilaterally. Corneal reflexes are positive bilaterally. Facial strength and symmetry was normal bilaterally. Hearing seems normal bilaterally. Palate moves well without asymmetry. There is normal sternocleidomastoid and trapezius (shoulder shrug) strength bilaterally. Tongue is midline with good strength bilaterally. Neck has a full range of motion without discomfort. There are no cervical bruits bilaterally. There are no cranial or ocular bruits. Heart is without murmur. There is a regular rhythm and rate. Cervical, thoracic, and lumbar spine are nontender to palpation. Gait was not tested but stance sitting in the chair was normal. With outstretched arms there is no drift. There are no resting, postural, or action tremors. There is no ataxia with finger to nose testing. There is good facility in the hands. No other abnormal involuntary movements are noted. Motor strength is 5/5 diffusely in the arms bilaterally including deltoids, biceps, triceps, brachioradialis, wrist flexors and extensors, rn burn, and intrinsic hand muscles. Motor strength is 5/5 diffusely in the legs bilaterally including hip flexors, quadriceps, hamstrings, gastrocnemius, tibialis anterior, tibialis posterior, and Peroneii muscles. Toe extensors are normal and there is good bulk in the extensor digitorum brevis muscles bilaterally. The limbs have good tone without rigidity or spasticity. There is no atrophy noted in the muscles. Muscle bulk is normal, there is no tenderness to palpation, no myotonia to percussion, and no fasciculations seen. Sensory examination is intact to touch and pin throughout all 4 limbs diffusely. Reflexes are 1/4 in the biceps, triceps, brachioradialis, quadriceps, and Achilles tendons bilaterally. There is no clonus bilaterally. Toes are downgoing with plantar stimulation bilaterally. Peripheral pulses are present and of normal quality distally in all 4 limbs. There is no peripheral edema noted in the limbs. Results & Data Vital Signs (Past 12 Hours) Vital Signs Temp Pulse Pulse Resp BP BP Pulse Ox 02/01/23 07:56 36.6 C 86 14 147/109 H 99 02/01/23 07:29 77 18 127/81 98 02/01/23 07:24 84 11 L 02/01/23 07:11 69 02/01/23 07:10 76 14 02/01/23 07:00 78 13 02/01/23 06:50 86 14 02/01/23 06:40 75 12 02/01/23 06:30 71 13 02/01/23 06:27 79 13 02/01/23 06:00 90 11 L 02/01/23 05:50 78 12 02/01/23 05:40 77 12 02/01/23 05:30 79 15 02/01/23 05:20 86 20 02/01/23 05:10 78 10 L 02/01/23 05:00 73 10 L 02/01/23 04:50 74 14 02/01/23 04:40 75 14 02/01/23 04:39 72 17 131/88 98 02/01/23 04:39 02/01/23 04:30 81 13 02/01/23 04:23 82 10 L 02/01/23 04:23 131/88 02/01/23 04:20 82 15 02/01/23 04:10 73 11 L 02/01/23 04:00 79 13 02/01/23 03:50 80 19 02/01/23 03:44 85 14 02/01/23 03:30 80 15 02/01/23 03:20 75 16 02/01/23 03:10 90 19 02/01/23 03:00 90 17 02/01/23 02:50 93 H 19 02/01/23 02:40 81 17 02/01/23 02:30 81 11 L 02/01/23 02:20 78 13 98 02/01/23 02:10 79 14 98 02/01/23 02:00 76 16 97 02/01/23 01:50 81 15 97 02/01/23 01:40 78 15 97 02/01/23 01:30 91 H 18 97 02/01/23 01:20 80 15 97 02/01/23 01:10 27 H 97 02/01/23 01:00 79 14 97 02/01/23 00:50 81 17 97 02/01/23 00:40 14 97 02/01/23 00:30 79 15 98 02/01/23 00:30 155/89 H 02/01/23 00:20 80 23 99 02/01/23 00:10 83 16 99 02/01/23 00:00 15 94 02/01/23 00:00 145/99 H 01/31/23 23:50 20 98 01/31/23 23:45 13 01/31/23 23:45 85 20 128/82 98 01/31/23 23:17 83 Pulse Ox O2 Del Method O2 Del Method 02/01/23 07:56 Room Air 02/01/23 07:29 02/01/23 07:24 02/01/23 07:11 02/01/23 07:10 02/01/23 07:00 02/01/23 06:50 02/01/23 06:40 02/01/23 06:30 02/01/23 06:27 02/01/23 06:00 02/01/23 05:50 02/01/23 05:40 02/01/23 05:30 02/01/23 05:20 02/01/23 05:10 02/01/23 05:00 02/01/23 04:50 02/01/23 04:40 02/01/23 04:39 Room Air 02/01/23 04:39 98 Room Air 02/01/23 04:30 02/01/23 04:23 02/01/23 04:23 02/01/23 04:20 02/01/23 04:10 02/01/23 04:00 02/01/23 03:50 02/01/23 03:44 02/01/23 03:30 02/01/23 03:20 02/01/23 03:10 02/01/23 03:00 02/01/23 02:50 02/01/23 02:40 02/01/23 02:30 02/01/23 02:20 02/01/23 02:10 02/01/23 02:00 02/01/23 01:50 02/01/23 01:40 02/01/23 01:30 02/01/23 01:20 02/01/23 01:10 02/01/23 01:00 02/01/23 00:50 02/01/23 00:40 02/01/23 00:30 02/01/23 00:30 02/01/23 00:20 02/01/23 00:10 02/01/23 00:00 02/01/23 00:00 01/31/23 23:50 01/31/23 23:45 01/31/23 23:45 Room Air 01/31/23 23:17 PG Care Time/CCT Total # of Minutes Spent Total Time Spent with Patient: Total time spent is greater than 50% in coordination of care (as documented) at patient's floor/unit and/or counseling patient: Coding Level of Care Code 61878 INT INP/OBS CARE 2/55MIN Diagnoses Seizure-like activity R56.9 OMAR (generalized anxiety disorder) F41.1 MDD (major depressive disorder), recurrent episode, severe F33.2
[2023-02-01] MEDS: FLUoxetine HCL 20 MG CAP PO SCH (12:09)
[2023-02-01] MEDS: LANTUS PER UNIT CHARGE SQ SCH ×2 (12:09→21:42)
--- NOTE | 2023-02-01 13:34 | Magnetic Resonance Report ---
MR brain wo con CLINICAL HISTORY: Possible new onset seizure TECHNIQUE: Multiplanar and multisequence MR images of the brain were obtained without intravenous con trast. Comparison: None available at the time of this dictation. FINDINGS: No abnormal restricted diffusion is identified. The white matter is unremarkable. The ventricular sys tem is normal in appearance. No mass is seen. There is no mass effect or midline shift. There is no e vidence of acute intraparenchymal hemorrhage. No extra axial fluid collections are seen. The corpus c allosum, pituitary gland, and cerebellar tonsils appear grossly unremarkable. Flow voids of the major intracranial arterial vessels are identified. The imaged portions of the para nasal sinuses, mastoid air cells, and orbits are unremarkable. IMPRESSION: No acute abnormalities. ACT 112: Negative or not required by law. Electronically signed by: Kd Duvall M.D. 02/01/2023 1:32 PM
--- NOTE | 2023-02-01 20:16 | Hospitalist Progress Note ---
Date of Service February 01, 2023 Assessment & Plan (1) Seizure-like activity: Plan: 2nd to recently increased wellbutrin which is known to lower seizure threshold? seen by Dr Hernandez - neuro. clinical picture is suggestive of generalized seizure. since admission no seizures. MRI brain wnl. Electrolytes wnl. wellbutrin has been stopped. await EEG. no anti-epileptic meds at this time. no driving post-d/c. appreciate neuro consult. (2) Elevated CK: Plan: 2nd to #1. mild. repeat am. (3) Pulmonary edema: Plan: ?CTA chest with such, but no evidence of edema on lung exam. no pulmonary symptoms. (4) HTN (hypertension): Plan: is not on therapy for such but SBPs have been 130s to 150s while here. will trend, and family counselor appropriately (5) OMAR (generalized anxiety disorder): Plan: cont fluoxetine hold wellbutrin (6) Type II diabetes mellitus: Plan: had HbA1c of >8% in 2021 but subsequent a1c's have been normal glucose was 134 upon presentation. will check an a1c tomorrow am. (7) Morbid obesity with BMI of 40.0-44.9, adult: Plan: BMI 42 Admission and Anticipated Discharge Date Admission Date: January 31, 2023 Subjective no events since admission tele wnl patient sitting in chair during the visit feels well denies any infectious symptoms denies any personal or family h/o seizures just had wellbutrin dose increased recently suffers from anxiety, etc. Review of Systems Review of Systems: gen - no fevers cv - no chest pain pulm - no dyspnea, no OLSEN, no cough GI - no abd pain, nausea, emesis Physical Exam Physical Exam: gen - NAD, pleasant, obese, looks well mouth - MMM neck - no JVD heart - RRR, s1 s2, no murmur lungs - CTA b/l abd - soft NT ND BS+ ext - no edema, pulses 2+ b/l neuro - strength 5/5 x 4 exts, DTRs 1+ b/l psych - a/o x 3 Results & Data Results & Data Vital Signs (Past 12 Hours) Vital Signs Temp Pulse Pulse Pulse Resp BP BP 02/01/23 19:00 36.9 C 82 18 135/88 02/01/23 17:01 76 02/01/23 15:56 36.6 C 74 20 151/97 H 02/01/23 12:45 84 02/01/23 12:24 36.4 C L 86 20 140/87 Pulse Ox O2 Del Method 02/01/23 19:00 97 Room Air 02/01/23 17:01 02/01/23 15:56 98 Room Air 02/01/23 12:45 02/01/23 12:24 98 Room Air Laboratory Results Laboratory Results - last 24 hr 01/31/23 02/01/23 02/01/23 21:16 07:58 11:52 POC Glucose 91 98 B-Natriuretic Peptide 18 02/01/23 17:16 POC Glucose 76 B-Natriuretic Peptide PG Care Time/CCT Total # of Minutes Spent Total Time Spent with Patient: Total time spent is greater than 50% in coordination of care (as documented) at patient's floor/unit and/or counseling patient: Coding Level of Care Code 93152 SUB INP/OBS CARE 2/35MIN Diagnoses Seizure-like activity R56.9 Elevated CK R74.8 Pulmonary edema J81.1 HTN (hypertension) I10 OMAR (generalized anxiety disorder) F41.1 Type II diabetes mellitus E11.9 Morbid obesity with BMI of 40.0-44.9, adult E66.01; Z68.41
[2023-02-01] MEDS: hydrOXYzine HCl 25 MG TAB PO SCH (21:42)
[2023-02-02 07:37] LABS: BUN Creatinine Ratio 13.9 (10-20); Calcium 9.5 mg/dl (8.6-10.3); Creatinine Clr Calc Pharmacy 215.5 ml/min; Est GFR (African American) 137.2 ml/min; Est GFR (Non-African American) 118.3 ml/min; Potassium 4.3 mmol/L (3.5-5.1)
[2023-02-02 07:52] LABS: Estimated Average Glucose 111 mg/dl; Hemoglobin A1C 5.5 % (4.5-5.6)
[2023-02-02] MEDS: FLUoxetine HCL 20 MG CAP PO SCH (09:06)
[2023-02-02] MEDS: LANTUS PER UNIT CHARGE SQ SCH ×2 (09:06→21:10)
--- NOTE | 2023-02-02 09:08 | Electroencephalogram ---
EEG Procedure Note Date of Service February 02, 2023 Start / End Times Start Time: 833 End Time: [address] Avendaño History 37-year-old with new onset generalized tonic-clonic seizure on January 31 Home Medication List Medication Instructions Recorded Confirmed Type lancets 33 gauge (KelvinTouch Jeremiah #100 ea 08/16/21 10/15/22 Rx Lancets) fluoxetine 40 mg capsule 80 mg PO QAM 10/07/21 01/31/23 History dknfpnvy-yiqamjrb-txmfr acid 400 1 tab PO DAILY 10/07/21 01/31/23 History mcg-vit K 20 mcg-lycop 300 mcg tablet (One-A-Day Men's Multivitamin) blood sugar diagnostic (KelvinTouch #100 ea 01/10/22 10/15/22 Rx Verio test strips) Vitamin D3 2 gummy PO QAM PRN Other 01/31/23 01/31/23 History bupropion HCl 200 mg tablet,12 hr 200 mg PO QAM 01/31/23 01/31/23 History sustained-release hydroxyzine HCl 50 mg tablet 50 mg PO HS insomnia 01/31/23 01/31/23 History Inpatient Medication List Fluoxetine HCl (Fluoxetine Hcl 20 Mg Cap) 80 mg PO QAM AUTUMN Stop: 03/03/23 08:59 Last Admin: 02/01/23 12:09 Dose: 80 mg Documented By: HANNAH Hydroxyzine HCl (Hydroxyzine Hcl 25 Mg Tab) 50 mg PO HS AUTUMN Stop: 03/03/23 20:59 Last Admin: 02/01/23 21:42 Dose: 50 mg Documented By: DEEDEE Insulin Glargine (Lantus Per Unit Charge) 26 units SQ BID AUTUMN Stop: 03/03/23 08:59 Last Admin: 02/01/23 21:42 Dose: 26 units Documented By: DEEDEE Co-signed By: LATISHA Admin: 02/01/23 12:09 Dose: Not Given Documented By: HANNAH Discontinued Medications Sodium Chloride (Nss) 1,000 mls @ 999 mls/hr IV .Q1H1M AUTUMN Stop: 01/31/23 16:30 Last Infusion: 01/31/23 17:29 Dose: Infused Documented By: Admin: 01/31/23 16:40 Dose: 999 mls/hr Documented By: TRISTA Ioversol (Optiray 320 125ml) 119 ml IV ONCE ONE Stop: 01/31/23 19:31 Last Admin: 01/31/23 19:30 Dose: 119 ml Documented By: LUIS Description This is a 21 electrode EEG with a single channel dedicated to limited EKG. The electrodes were placed in accordance with the International 10-20 system. Interpretation The predominant background activity consists of a fairly well modulated 10 Hz activity, of up to 40 mV in amplitude,seen symmetrically distributed over the posterior head regions bilaterally, spreading anteriorly bilaterally through head regions. This activity attenuates with eye-opening and other alerting procedures. Photic stimulation was performed and elicited no change in the background activity and no abnormal responses were seen. Hyperventilation was performed for three minutes with good effort and again no abnormalities were seen. A minimal amount of muscle and movement artifact activity contaminated the recording and did not hinder interpretation to any significant degree. Throughout the waking portion of the recording, no focal abnormalities, abnormal slow activity, or potentially epileptogenic discharges are seen. The patient entered the drowsy state with no further activation. In summary, this EEG was normal during wakefulness and drowsiness. No focal abnormalities, potentially epileptogenic discharges, or abnormal slow activity was seen. Clinical Correlation The abscence of potentially epileptogenic activity does not exclude a seizure disorder, since interictally, EEGs can be normal. Clinical correlation is required. [facility] Procedure Codes Indication for Procedure (1) Seizure-like activity: Neurology Neurology: 52917 EEG include record awake & drowsy
--- NOTE | 2023-02-02 10:29 | Neurology Progress Note ---
Date of Service February 02, 2023 Assessment & Plan (1) Seizure-like activity: Plan This patient had new onset seizure activity January 31, consisting of generalized tonic-clonic activity. Currently he is asymptomatic, back to baseline with no seizure activity since coming to the emergency room. There are no focal neurologic findings, meningeal signs, or encephalopathy. The elevated CK can be seen with a generalized tonic-clonic seizure. He only had 1 event and the etiology is not certain. However, he recently increased his bupropion to 200 mg a day 1 month ago. This can lead to seizures. On rare occasion, fluoxetine can be associated with seizures to but he has been on the same (albeit relatively high) dose for almost a year. He has major depressive disorder and generalized anxiety disorder which are stable on current medication. MRI of the brain was unremarkable and EEG was normal awake and drowsy. Recommendations: 1. Continue holding bupropion for now and maintaining fluoxetine. 2. I see no reason for initiating an anticonvulsant at this time. 3. We can follow-up in Neurology in 2-3 weeks with the PA, after discharge. No driving until we see him in clinic. Overall, I spent a total of 35 minutes with this case including review of domo rds, review of MRI films, direct evaluation of the patient at bedside, report generation, and discussion of the case with the patient at bedside, and Dr. Irby, including differential diagnosis and treatment options. Admission and Anticipated Discharge Date Admission Date: January 31, 2023 Subjective Patient has had no further episodes or spells since admission. He feels well and has no complaints. Blood pressure is 142/99. CK was elevated at 1769 and hemoglobin A1c was normal at 5.5. Chem profile was unremarkable. MRI of the brain without contrast was unremarkable. I reviewed these films. EEG was normal awake and drowsy today. Results & Data Vital Signs (Past 12 Hours) Vital Signs Temp Pulse Pulse Resp BP BP Pulse Ox 02/02/23 09:06 36.6 C 79 18 142/99 H 98 02/02/23 07:37 62 02/02/23 03:00 36.5 C 80 20 154/77 H 95 02/02/23 01:52 76 02/02/23 00:58 O2 Del Method 02/02/23 09:06 Room Air 02/02/23 07:37 02/02/23 03:00 Room Air 02/02/23 01:52 02/02/23 00:58 Room Air Exam (Neuro) Physical Exam: He is awake and alert, with normal speech and mentation. Mood and affect are normal appropriate. Thought processes are intact conversation Extraocular muscles are intact without nystagmus. There is no facial droop. There are no abnormal involuntary movements and stance sitting in chair is normal. Strength is symmetrical. PG Care Time/CCT Total # of Minutes Spent Total Time Spent with Patient: Total time spent is greater than 50% in coordination of care (as documented) at patient's floor/unit and/or counseling patient: Coding Level of Care Code 04805 SUB INP/OBS CARE 2/35MIN Diagnoses Seizure-like activity R56.9 Time Spent (min) 35
[2023-02-02] MEDS ORDERED: LACTATED RINGER'S 1,000 ML IV SCH (11:45)
[2023-02-02] MEDS: SODIUM CHLORIDE 0.9% 1,000 ML IV SCH (18:51)
[2023-02-02] MEDS: hydrOXYzine HCl 25 MG TAB PO SCH (21:09)
--- NOTE | 2023-02-02 21:33 | Hospitalist Progress Note ---
Date of Service February 02, 2023 Assessment & Plan (1) Seizure-like activity: Plan: suspected 2nd to recently increased wellbutrin which is known to lower seizure threshold seen by Dr Hernandez - neuro. clinical picture suggestive of generalized seizure. since admission no seizures. MRI brain wnl. Electrolytes wnl. wellbutrin has been stopped. EEG w/o seizure focus / study normal. Plan at discharge: no anti-epileptic meds at this time. no driving post-d/c until seen by neuro in clinic. f/u with [facility] neurology in 3-4 weeks post-discharge. appreciate neuro consultation. (2) Pulmonary edema: Plan: ?CTA chest with such, but no evidence of edema on lung exam. no pulmonary symptoms. lungs cont to be clear. o2 sats wnl. (3) HTN (hypertension): Plan: is not on therapy for such but, at times, SBPs have been 130s to 150s while here. cont to trend as he has some readings that are <120. (4) OMAR (generalized anxiety disorder): Plan: cont fluoxetine STOPPED wellbutrin (5) Type II diabetes mellitus: Plan: had HbA1c of >8% in 2021 but subsequent a1c's have been normal glucose was 134 upon presentation. a1c today 5.5% stop the lantus (6) Morbid obesity with BMI of 40.0-44.9, adult: Plan: BMI 42 (7) Rhabdomyolysis: Plan: 2nd to seizure pre-admission when he seized he fell to the ground from seated position at the [facility] library CPK tiara from 816 to >1700 today gave IV fluid - repeat later in the day still about 1700 cont copious IV fluids overnight repeat CPK am if CPK trends down by am can d/c home and hydrate vigorously next few days all myalgias have resolved Admission and Anticipated Discharge Date Admission Date: January 31, 2023 Subjective pt feeling well following his seizure he had muscle pain in both legs but this is resolved we discussed his elevated CPK today and that it had worsened in the last 48 hours he was agreeable to staying another 24 hours for IV fluids no seizure activity over last 24 hours tele stable no new issues Review of Systems Review of Systems: cv - no chest pain pulm - no OLSEN GI - no abd pain/nausea/emesis Physical Exam Physical Exam: gen - NAD, pleasant, obese, looks well mouth - MMM neck - no JVD heart - RRR, s1 s2, no murmur lungs - CTA b/l abd - soft NT ND BS+ ext - no edema, pulses 2+ b/l; no abnormalities of legs (no focal swelling, etc) neuro - strength 5/5 x 4 exts psych - a/o x 3 Results & Data Results & Data Vital Signs (Past 12 Hours) Vital Signs Temp Pulse Pulse Resp BP Pulse Ox O2 Del Method 02/02/23 20:13 36.3 C L 67 16 103/66 97 Room Air 02/02/23 16:15 36.9 C 82 18 146/83 H 97 Room Air 02/02/23 15:00 74 02/02/23 12:13 36.9 C 78 18 140/93 97 Room Air Laboratory Results Laboratory Results - last 24 hr 02/02/23 02/02/23 02/02/23 06:40 09:03 12:27 Sodium 141 Potassium 4.3 D Chloride 106 Carbon Dioxide 31 Anion Gap 4 BUN 10 Creatinine 0.72 Est Cr Clr Drug Dosing 215.5 Est GFR ( Amer) 137.2 Est GFR (Non-Af Amer) 118.3 BUN/Creatinine Ratio 13.9 Glucose 94 POC Glucose 85 86 Estimat Average Glucose 111 Hemoglobin A1c 5.5 Calcium 9.5 Total Creatine Kinase 1769 H 02/02/23 02/02/23 02/02/23 16:16 17:13 20:30 Sodium Potassium Chloride Carbon Dioxide Anion Gap BUN Creatinine Est Cr Clr Drug Dosing Est GFR ( Amer) Est GFR (Non-Af Amer) BUN/Creatinine Ratio Glucose POC Glucose 76 91 Estimat Average Glucose Hemoglobin A1c Calcium Total Creatine Kinase 1713 H PG Care Time/CCT Total # of Minutes Spent Total Time Spent with Patient: Total time spent is greater than 50% in coordination of care (as documented) at patient's floor/unit and/or counseling patient: Coding Level of Care Code 87354 SUB INP/OBS CARE 2/35MIN Diagnoses Seizure-like activity R56.9 Pulmonary edema J81.1 HTN (hypertension) I10 OMAR (generalized anxiety disorder) F41.1 Type II diabetes mellitus E11.9 Morbid obesity with BMI of 40.0-44.9, adult E66.01; Z68.41 Rhabdomyolysis M62.82
[2023-02-03] MEDS: SODIUM CHLORIDE 0.9% 1,000 ML IV SCH ×2 (01:28→08:17)
--- NOTE | 2023-02-03 03:41 | Billing Data ---
Date of Service February 03, 2023 Coding Level of Care Code 48453 INT INP/OBS CARE
[2023-02-03 07:47] LABS: BUN Creatinine Ratio 13.8 (10-20); Calcium 8.6 mg/dl (8.6-10.3); Creatinine Clr Calc Pharmacy 238.2 ml/min; Est GFR (Non-African American) 123.4 ml/min; Potassium 3.7 mmol/L (3.5-5.1)
[2023-02-03] MEDS: FLUoxetine HCL 20 MG CAP PO SCH (08:17)
--- NOTE | 2023-02-03 19:50 | Discharge Summary ---
Date of Service February 03, 2023 Admission HPI Per Admitting Provider Sukumar is a 37 year old male w/ PmHx OMAR, HTN, A/D w/ social anxiety, T2DM brought in by EMS for an episode of passing out possible seizure. Patient states that he was in the library playing board games like he usually does on the weekends from 10-4 earlier today. He remembers playing board games without any issue and then the next thing he knows he woke up sweaty and in an ambulance. Per ER physician it was reported that he had fell to the ground with tonic-clonic seizure-like activity which lasted around 2 minutes along with 8 minutes of post-ictal state. Patient states that the only thing he can think of that may have contributed to this was getting really into the board games and not drinking or eating very much the whole day. He states that he has no past history of seizures in adulthood or when he was an infant, mother confirms this in the room. No history of syncopal episodes either. He is on bupropion for anxiety/depression and takes this daily. He denies any fevers, chills, shortness of breath, chest pain, diarrhea, constipation, urinary symptoms, recent trauma. Denies any smoking or tobacco use, only has around 1 beer once a week, no recreational drug use. In the ER CBC unremarkable, D-dimer 1510, CK 816, CMP unremarkable. U/A with trace protein, 5-[address] head unremarkable, CTA chest no pulmonary embolism, interseptal thickening concerning for pulmonary edema. Urine drug screen p ositive for MDMA however this may be caused by bupoprion patient is on. Principal Diagnosis Generalized seizure, probably provoked by bupropion Discharge Exam PHYSICAL EXAMINATION Last 24h vital signs reviewed, see documentation in flowsheet General: comfortable appearing, no distress, sitting up in the chair HEENT: Normocephalic, atraumatic, pupils round and equal, sclerae anicteric, no conjunctival injection, moist mucus membranes Lungs: Normal respiratory effort. Clear to auscultation bilaterally. No RRW Heart: Regular rate and rhythm, no murmurs. Abdomen: Soft, nondistended. Bowel sounds present. Extremities: Warm, dry, well-perfused. No extremity edema. Neuro: Alert and oriented x 4, face symmetric, moves 4 extremities well Psych: Normal affect and behavior Discharge Data Allergies Allergy/AdvReac Type Severity Reaction Status Date / Time No Known Allergies Allergy Verified 10/15/22 10:23 Consultations 01/31/23 22:22 ED Decision to Admit Stat 02/01/23 00:39 Consult Neurology Routine Ordered Studies 01/31/23 15:18 CT head/brain wo con Stat 01/31/23 19:18 CT for pulmonary embolism PE [CT angio chest PE protocol] Stat 02/01/23 00:39 MRI Brain [MR brain wo con] Routine Head CT 01/31/23 15:[address] CT DOSE: 625.8 mGy.cm HISTORY: seizure TECHNIQUE: Multiaxial CT images of the head were performed without the use of intravenous contrast. Automated exposure control was utilized for this study. A dose lowering technique was utilized adhering to the principles of ALARA. Comparison: None. Findings: The paranasal sinuses and mastoid air cells are clear. The calvarium and skull base are intact. The ventricles and sulci are within normal limits. There is no mass, hematoma, midline shift, or acute infarct. Impression: No acute intracranial abnormality. ACT 112: Negative or not required by law. Electronically signed by: Manoj Carmen M.D. 01/31/2023 4:14 PM Chest X-Ray 01/31/23 17:22 XR chest 1V portable HISTORY: seizure COMPARISON: None. FINDINGS: No pneumothorax. No pleural effusions. There are low lung volumes. No focal lung consolidations to suggest a pneumonia. No evidence for pulmonary edema. The cardiac silhouette is mildly enlarged. IMPRESSION: Mild cardiomegaly. Otherwise, no acute process within the chest. ACT 112: Negative or not required by law. Electronically signed by: Manoj Carmen M.D. 01/31/2023 6:35 PM Chest CTA 01/31/23 19:18 Exam(s): CTA CHEST IV Amt: 119 ml optiray 320 EXAM: CT Angiography Chest With Intravenous Contrast CLINICAL HISTORY: Pulmonary embolus. TECHNIQUE: Axial computed tomographic angiography images of the chest with intravenous contrast. CTDI is 28.5 mGy and DLP is 796.24 mGy-cm. Automated exposure control was utilized for the study. A dose lowering technique was utilized adhering to the principles of ALARA. MIP reconstructed images were created and reviewed. COMPARISON: No relevant prior studies available. FINDINGS: Pulmonary arteries: Unremarkable. No pulmonary embolus. Aorta: No acute findings. No thoracic aortic aneurysm. Lungs: Interseptal thickening is concerning for pulmonary edema. No mass. Pleural space: Unremarkable. No significant effusion. No pneumothorax. Heart: Unremarkable. No cardiomegaly. No significant pericardial effusion. No evidence of RV dysfunction. Bones/joints: There are degenerative changes of the spine. No acute fracture. No dislocation. Soft tissues: Unremarkable. Lymph nodes: Unremarkable. No enlarged lymph nodes. IMPRESSION: 1. No pulmonary embolus. 2. Interseptal thickening is concerning for pulmonary edema. Electronically signed by: Bianca Lewis MD 01/31/23 21:06 PM Brain MRI 02/01/23 00:39 MR brain wo con CLINICAL HISTORY: Possible new onset seizure TECHNIQUE: Multiplanar and multisequence MR images of the brain were obtained without intravenous contrast. Comparison: None available at the time of this dictation. FINDINGS: No abnormal restricted diffusion is identified. The white matter is unremarkable. The ventricular system is normal in appearance. No mass is seen. There is no mass effect or midline shift. There is no evidence of acute intraparenchymal hemorrhage. No extra axial fluid collections are seen. The corpus callosum, pituitary gland, and cerebellar tonsils appear grossly unremarkable. Flow voids of the major intracranial arterial vessels are identified. The imaged portions of the paranasal sinuses, mastoid air cells, and orbits are unremarka ble. IMPRESSION: No acute abnormalities. ACT 112: Negative or not required by law. Electronically signed by: Kd Duvall M.D. 02/01/2023 1:32 PM Hospital Course (1) Seizure-like activity: suspected 2nd to recently increased wellbutrin which is known to lower seizure threshold seen by Dr Hernandez - yoon. clinical picture suggestive of generalized seizure. since admission no seizures. MRI brain wnl. Electrolytes wnl. wellbutrin has been stopped. EEG w/o seizure focus / study normal. Plan at discharge: no anti-epileptic meds at this time. no driving post-d/c until seen by neuro in clinic. f/u with [facility] neurology in 3-4 weeks post-discharge. bupropion was stopped recommendations per neurologist: "MRI of the brain was unremarkable and EEG was normal awake and drowsy. Recommendations: 1. Continue holding bupropion for now and maintaining fluoxetine. 2. I see no reason for initiating an anticonvulsant at this time. 3. We can follow-up in Neurology in 2-3 weeks with the PA, after discharge. No driving until we see him in clinic." (2) Pulmonary edema: CTA chest with such, but no evidence of edema on lung exam. no pulmonary symptoms. lungs cont to be clear. o2 sats wnl. (3) HTN (hypertension): is not on therapy for such but, at times, SBPs have been 130s to 150s while here. follow-up in primary care (4) OMAR (generalized anxiety disorder): cont fluoxetine STOPPED wellbutrin (5) Type II diabetes mellitus: had HbA1c of >8% in 2021 but subsequent a1c's have been normal glucose was 134 upon presentation. a1c today 5.5% (6) Morbid obesity with BMI of 40.0-44.9, adult: BMI 42 (7) Rhabdomyolysis: mild, 2nd to seizure pre-admission when he seized he fell to the ground from seated position at the [facility] library CPK tiara from 816 to >1700 then down trended with IV fluids all myalgias have resolved I advised him to maintain good oral hydration the next few days Total Time Total Time Spent Total Time Spent (In Minutes): 25 minutes Discharge Plan Discharge Items Patient Disposition: Home - Self-Care Reason For Visit: POSSIBLE SEIZURE Discharge Diagnosis: 1. suspected generalized seizure - possibly due to wellbutrin 2. mild rhabdomyolysis - due to #1 Activity: Per Instructions section Bathing Comment: No tub baths, no swimming Exercise/Sports: Gradually increase as tolerated Driving/Machine Use: NO DRIVING until seen by [facility] Non-emergency contact: Primary Care Provider and Neurologist Call non-emergency contact if: you have any medication questions and your symptoms worsen Follow-up/Referrals: Tashi Bain DO [Primary Care Provider] - 02/09/23 9:20 am () Kelly Sykes PA [Physician Merchant Tailor] - Diet: Carb Consistent or DM2 Addtl Attending Provider Instructions: Suspected generalized seizure, probably related to Wellbutrin (bupropion) which is a known side effect of this medication - STOP taking bupropion and I would avoid restarting it in the future. Your other medications are okay to continue. Drink plenty of fluids for the next few days, you can gradually return to your usual level of activity / exercise as long as your muscles are no longer sore. No driving or operating heavy machinery until cleared by neurology. Follow up with Iris Goss at [place] for your mental health. It was a pleasure taking care of you in the hospital Silvia Mcgrath MD Pending Studies at Discharge: No Stand-Alone Forms: [facility], Smoking Cessation Medications and DC Order Prescriptions: Continued (DME) OneTouch Verio test strips Strip See Rx Instructions .Route Qty: 100 1RF Rx Instructions: Once per day fluoxetine 40 mg capsule 80 mg PO QAM One-A-Day Men's Multivitamin 400-20-300 mcg tablet 1 tab PO DAILY (DME) lancets [OneTouch Delica Lancets] 33 gauge misc See Rx Instructions .Route Qty: 100 0RF Rx Instructions: once per day Vitamin D3 2 gummy PO QAM PRN (Reason: Other) Rx Instructions: uses during winter months hydroxyzine HCl 50 mg tablet 50 mg PO HS Discontinued bupropion HCl 200 mg tablet sustained-release 12 hr 200 mg PO QAM Discharge Orders: Discharge Order (Routine); Ordered 02/03/23 Ordered By: Silvia Mcgrath Admission Data Admit Date/Time: 01/31/23 23:12 Attending Provider: Silvia Mcgrath Admit Provider: Champ Avendaño Primary Care Provider: Tashi Bain Other Providers: Jose Antonio León; Ceasar Hernandez Other Interventions: Discharge Summary Assessment (RN) Last Done: 02/03/23 10:33 Coding Level of Care Code 82563 IN/OBS DISCH 30 MIN/LESS Diagnoses Seizure-like activity R56.9 Pulmonary edema J81.1 HTN (hypertension) I10 OMAR (generalized anxiety disorder) F41.1 Type II diabetes mellitus E11.9 Morbid obesity with BMI of 40.0-44.9, adult E66.01; Z68.41 Rhabdomyolysis M62.82
[2023-02-05 18:01] LABS: MDA negative; MDEA negative; MDMA (Ecstasy) Urine, Confirm negative
== END 2023-02-03 10:55 | disposition home or self-care (01) | DRG 101 ==
LOC: ED 15:01 → EDINP 23:12 → SUATTDRO 23:12 → 2N 02-01 00:40